=== PATIENT | female | born 1965 | race Caucasian/White ===

== ENCOUNTER 2024-03-08 15:03 | Outpatient (OUT) | payer OTHER, SELFPAY | END 2024-03-08 15:04 | disposition home or self-care (01) | LOC: CARD 15:07 | PROVIDERS: PCP Internal Medicine; Visit Provider Physician Assistant | DX: R00.2 Palpitations (principal); I10 Essential (primary) hypertension | CPT/HCPCS: 93242 ==

== ENCOUNTER 2024-06-09 07:57 | Outpatient (OUT) | payer OTHER, SELFPAY ==
--- NOTE | 2024-06-09 08:00 | CA_ITS ---
Patient Name: JULIANA OVERTON MR#: [id number] : 1965 Exam Date: 06/09/2024 Ordering Doctor: ZHANNA JUNG M.D. ECHOCARDIOGRAM REPORT PROCEDURE: CA ECHO DOPPLER COMPLETE INDICATIONS: Lower extremity edema, hypertension COMPARISON: None. DESCRIPTION: COMPLETE ECHOCARDIOGRAM Real-time transthoracic echocardiography with 2D, M-mode, spectral and color flow Doppler performed. QUALITY: Technical quality was good. LEFT VENTRICLE: Normal chamber size. Borderline left ventricular hypertrophy. Global left ventricular systolic function is normal. LV EF: Visual estimation of left ventricular ejection fraction is 65%. DIASTOLIC: Normal diastolic function. ATRIAL SEPTUM: LEFT ATRIUM: Mild dilatation. RIGHT ATRIUM: Normal chamber size. RIGHT VENTRICLE: Normal chamber size. Normal right ventricular systolic function. TRICUSPID VALVE: Normal mobility and thickness. No stenosis with trivial regurgitation. No evidence of pulmonary hypertension. RVSP 16 mmHg MITRAL VALVE: Normal mobility and thickness. No evidence of mitral valve stenosis. There is no mitral annular calcification. No mitral regurgitation. AORTIC VALVE: Normal trileaflet appearance. No visible sclerosis. Normal leaflet mobility. No evidence of aortic valve stenosis. No aortic regurgitation. AORTIC ROOT: Normal diameter and appearance. PULMONIC VALVE: Normal thickness and mobility. No stenosis. Trivial regurgitation. PERICARDIUM: No evidence of pericardial effusion. IVC: Collapses with inspirations. Normal size. PLEURA: CONCLUSION: 1. Borderline left ventricular hypertrophy with normal systolic function. Estimated LVEF is 65%. 2. Normal right ventricular size and systolic function. 3. Mild left atrial dilatation. 4. Normal diastolic function. 5. No significant valvular dysfunction. 6. Normal right-sided pressures. 7. No pericardial effusion. Adult Echocardiography Procedure Report Left Ventricle LVEDD (3.7 - 5.6 cm): 5.51 cm LVESD (2.2 - 4.0 cm): 3.73 cm LVIVS thickness (0.6 - 1.2 cm): 1.10 cm LVPW thickness (0.5 - 1.0 cm): 0.77 cm e': 0.12 m/s E - e': 6.54 LVOT Max Gradient: 2.70 mm[Hg] LVOT Area (cm2): 0.82 m/s Peak Velocity (LVOT): 0.82 m/s Mean Velocity (LVOT): 0.49 m/s LVOT Diameter 2.11 cm Left Ventricular Ejection Fraction: 65 % Left Atrium LA Volume Index (2D A2C): 40.64 ml/m2 Left Atrium Systolic Dimension: 4.35 cm Mitral Valve MV E to A Ratio: 1.23 Mitral Valve A-Wave Peak Velocity: 0.63 m/s Mitral Valve E-Wave Peak Velocity: 0.78 m/s Right Ventricle RV Internal Diastolic Dimension: 3.32 cm Aorta AO Root Diam: 3.11 cm Ascending Ao Diam: 3.45 cm Aortic Valve AoV Area (Peak Raymundo): 2.55 cm2, 2.55 cm2 AoV Area (VTI): 2.46 cm2, 2.46 cm2 Peak Velocity(Antegrade Flow): 1.12 m/s Peak Gradient(Antegrade Flow): 5.05 mm[Hg] Mean Velocity(Antegrade Flow): 0.75 m/s Mean Gradient(Antegrade Flow): 2.62 mm[Hg] Velocity Time Integral: 28.26 cm Tricuspid Valve Peak Velocity (Regurgitant Flow): 1.51 m/s, 1.77 m/s Pulmonic Valve Mean Gradient: 2.16 mm[Hg], 2.45 mm[Hg] Mean Velocity: 0.69 m/s, 0.73 m/s Peak Velocity: 1.03 m/s Peak Gradient: 3.98 mm[Hg], 4.51 mm[Hg] Right Atrium Right Atrium Systolic Pressure: 43.66 ml, 43.66 ml Dictated by: Buddy Burch M.D. on 06/09/2024 at 13:18 Approved by: Buddy Burch M.D. on 06/09/2024 at 13:21
--- OUTSIDE RECORDS SUMMARY | 2024-06-09 08:02 | XMS_ITS | CCD ---
Author Organization [facility] Care Team Providers Care Cutter Operator Tile Name Role Phone DR BANG AVILES Attending Unavailable STEFAN, DR PARIS Consulting DR BANG Traore Primary Care Unavailable DR BANG AVILES Admitting ODILON Traore Primary Care Provider MD Fransico Campos Attending Provider MD Taco Anne Attending Provider Taco Anne Admitting Unavailable Taco Anne Attending Bang Traore Primary Care Unavailable Bang Aviles Primary Care Unavailable Fransico Campos Admitting Fransico Rutherford Attending Bang Isaac MD Primary Care Provider [phone] ALBA DONOVAN Attending Unavailable ALBA DONOVAN Attending Unavailable WALDO ALEXANDER Attending Unavailable ALBA DONOVAN Attending Unavailable ALBA DONOVAN Attending Unavailable SHERRIE CAZARES Attending Unavailable Stefan DONALD MD, Daniel B Primary Care Provider SELF Referring Unavailable NAINA THORNTON Attending BANG Traore II Primary Care Unavailable ZHANNA JUNG Attending Unavailable RAE SIMON Attending Unavailable Allergies Allergy Classification Reported Allergen(s) Allergy Type Date of Onset Reaction(s) Facility (12 sources) Citalopram Drug Allergy 4 Other, Other: See Comments [facility] Work Phone: Medications Current Medications Medication Drug Class(es) Dates Sig (Normalized) Sig (Original) acetaminophen 325 mg / HYDROcodone bitartrate 5 mg oral tablet (1 source) Opioid Agonist Start: 03-04-2016 take 1-2 tablets by mouth every four hours as needed HYDROcodone-aceta minophen (NORCO) 5-325 mg per tablet Take 1-2 tablets by mouth every 4 hours as needed. 20 tablet 0 03/04/2016 Active ALPRAZolam 2 mg oral tablet (8 sources) Benzodiazepine Start: 02-17-2024 take 1 tablet by mouth once ALPRAZolam (Xanax) 2 MG tablet Indications: Anxiety about health Take 1 tablet (2 mg) by mouth 1 time for 1 dose Take prior to MRI 1 tablet 02/17/2024 Active amoxicillin 500 mg oral capsule (2 sources) Penicillin-class Antibacterial Start: 04-21-2024 End: 05-01-2024 take 1 capsule by mouth in the morning, then take 1 capsule by mouth in the evening, then take 1 capsule by mouth at bedtime amoxicillin (Amoxil) 500 MG capsule Indications: Fever and chills , Acute non-recurrent frontal sinusitis Take 1 capsule (500 mg) by mouth in the morning and 1 capsule (500 mg) in the evening and 1 capsule (500 mg) before bedtime. Do all this for 10 days. 30 capsule 04/21/2024 05/01/2024 Active apixaban 2.5 mg oral tablet (1 source) Factor Xa Inhibitor take 1 tablet by mouth twice daily apixaban (ELIQUIS) 2.5 mg tab(s) Take 2.5 mg by mouth two times a day. Active atenolol 25 mg oral tablet (4 sources) beta-Adrenergic Dee Dee Start: 03-22-2024 take 1 tablet by mouth once daily atenolol (Tenormin) 25 MG tablet Indications: Paroxysmal atrial fibrillation (CMS/HCC) Take 1 tablet (25 mg) by mouth Daily 30 tablet 2 03/22/2024 Active Berberine (11 sources) BERBERINE Active Berberine Chloride (2 sources) Start: 09-17-2023 take 500 mg by mouth twice daily Berberine Chloride Active 500 MG PO Twice daily September 17, 2023 12:00am 12 hr buPROPion hydrochloride 100 mg extended release oral tablet (8 sources) Aminoketone Start: 04-19-2024 take 1 tablet by mouth once daily buPROPion SR (Wellbutrin SR) 100 MG 12 hr tablet Indications: Anxiety about health TAKE 1 TABLET (100 MG) BY MOUTH DAILY DO NOT CRUSH, CHEW, OR SPLIT. 30 tablet 1 04/19/2024 Active Start: 02-16-2024 take 1 tablet by once daily buPROPion SR (Wellbutrin SR) 100 MG 12 hr tablet Indications: Anxiety about health Take 1 tablet (100 mg) by mouth Daily Do not crush, chew, or split. 30 tablet 1 02/16/2024 Active dextromethorphan hydrobromide 15 mg / guaiFENesin 400 mg / pseudoephedrine hydrochloride 60 mg oral tablet (4 sources) alpha-Adrenergic Agonist, Uncompetitive Q-gvikna-Q-aspartate Receptor Antagonist, Sigma-1 Agonist Start: 03-18-2024 End: 03-22-2024 take 1 tablet by mouth every six hours as needed for cough CAPMIST DM 60-15-400 mg tab take 1 tablet by mouth every 6 hours as needed for cough 03/20/2024 Active docusate sodium 100 mg oral capsule (1 source) Start: 03-04-2016 docusate sodium (COLACE) 100 mg capsule Take one capsule twice daily while taking pain medications to prevent constipation. Hold if loose stool 03/04/2016 Active docusate sodium 50 mg / sennosides, detention 8.6 mg oral tablet (11 sources) take 1 tablet by mouth once daily as needed senna-docusate sodium (Senokot-S) 8.6-50 MG tablet Take 1 tablet by mouth Daily PRN Active fluconazole 150 mg oral tablet (2 sources) Azole Antifungal Start: 04-21-2024 End: 04-23-2024 fluconazole (Diflucan) 150 MG tablet Indications: Vaginal yeast infection Take 1 tablet (150 mg) by mouth Daily for 2 days 1 tablet following the atb dosage x 1 day, then repeat x 1 tablet in 3 days. 2 tablet 04/21/2024 04/23/2024 Active fluocinolone acetonide 0.1 mg/ml topical oil (5 sources) Corticosteroid Start: 02-23-2024 fluocinolone ([place]) 0.01 % external oil APPLY TO AFFECTED AREAS ON TRUNK AND AND EXTREMITIES ONCE DAILY. 02/23/2024 Active hydroCHLOROthiazide 12.5 mg oral capsule (1 source) Thiazide Diuretic take 1 capsule by mouth once daily hydroCHLOROthiazide 12.5 mg capsule Take 12.5 mg by mouth once daily. Active hydroCHLOROthiazide 25 mg / triamterene 37.5 mg oral tablet (16 sources) Potassium-sparing Diuretic, Thiazide Diuretic Start: 04-20-2024 take 1 tablet by mouth once daily in the morning triamterene-hydrochlo rothiazide (Maxzide-25) 37.5-25 MG tablet Indications: Benign essential hypertension (CMS/HCC) TAKE 1 TABLET BY MOUTH EVERY DAY IN THE MORNING 100 tablet 3 04/20/2024 Active Start: 02-24-2024 take 1 tablet by preeti th once daily in the morning triamterene-hydrochlorothiazide (Maxzide -25) 37.5-25 MG tablet Indications: Benign essential hypertension (CMS/HCC) TAKE 1 TABLET BY MOUTH EVERY DAY IN THE MORNING 30 tablet 02/24/2024 Active Start: 12-25-2023 End: 02-16-2024 take 1 tablet by mouth once daily in the morning triamterene-hydrochlorothiazide (Maxzide -25) 37.5-25 MG tablet Indications: Hypertension, unspecified type (CMS/HCC) TAKE 1 TABLET BY MOUTH EVERY DAY IN THE MORNING 30 tablet 01/28/2024 02/16/2024 Discontinued Start: 11-27-2023 take 1 tablet by preeti th once daily in the morning triamterene-hydrochlorothiazide (Maxzide -25) 37.5-25 MG tablet Indications: Hypertension, unspecified type (CMS/HCC) TAKE 1 TABLET BY MOUTH EVERY DAY IN THE MORNING 30 tablet 11/27/2023 Active Start: 09-16-2023 take 1 tablet by preeti th once daily in the morning Triamterene-Hydrochlorothiazid Active 1 TAB PO Every morning September 16, 2023 12:00am levothyroxine sodium 0.175 mg oral tablet (15 sources) l-Thyroxine Start: 05-20-2024 take 1 tablet by mouth once daily levothyroxine (SYNTHROID) 175 mcg tablet Take 1 tablet by mouth once daily. 90 tablet 1 05/20/2024 Active Start: 2023 End: 05-20-2024 levothyroxine (SYNTHROID) 15 0 mcg tablet Take 150 mcg by mouth. 2023 05/20/2024 Discontinued Start: 09-16-2023 take 150 ug by mouth once daily Levothyroxine Active 150 MCG PO Daily September 16, 2023 12:00am losartan potassium 100 mg oral tablet (14 sources) Angiotensin 2 Receptor Dee Dee Start: 04-26-2024 losartan (COZAAR) 10 0 mg tablet Take 100 mg by mouth. 04/26/2024 Active Start: 04-30-2023 take 1 tablet by preeti th once daily losartan (Cozaar) 100 MG tablet Indications: Essential (primary) hypertension (CMS/HCC) TAKE 1 TABLET BY MOUTH ONCE DAILY 90 tablet 3 04/30/2023 Active rivaroxaban 20 mg oral tablet (3 sources) Factor Xa Inhibitor Start: 03-22-2024 take 1 tablet by mouth at mealtime rivaroxaban (Xarelto) 20 MG tablet Indications: Paroxysmal atrial fibrillation (CMS/HCC) Take 1 tablet (20 mg) by mouth in the evening. Take with meals Take with food. 30 tablet 2 03/22/2024 Active Sennosides (Senna) 8.6 mg tablet (2 sources) Start: 09-17-2023 take 1 tablet by mouth twice daily Sennosides (Senna) 8.6 mg tablet Active 8.6 MG PO Twice daily September 17, 2023 12:00am VITAMIN D PO (11 sources) take 1 tablet by mouth once daily VITAMIN D PO Take 1 tablet by mouth Daily Active Vitamin D3-Vitamin K2 (2 sources) Start: 09-17-2023 take 1 capsule by mouth once daily Vitamin D3-Vitamin K2 Active 1 CAP PO Daily September 17, 2023 12:00am Vtama 1 % cream (5 sources) Start: 02-25-2024 Vtama 1 % crea m 02/25/2024 Active VTAMA 1 % cream (1 source) Start: 02-25-2024 VTAMA 1 % crea 02/25/2024 Active Completed/Discontinued Medications Medication Drug Class(es) Dates Sig (Normalized) Sig (Original) citalopram 20 mg oral tablet (1 source) Serotonin Reuptake Inhibitor Start: 10-21-2023 End: 12-10-2023 take 1 tablet by mouth once daily citalopram (CeleXA) 20 MG tablet Indications: Anxiety about health Take 0.5-1 tablets (10-20 mg) by mouth Daily 10 mg daily for 2 weeks, then 20 mg daily. 30 tablet 1 10/21/2023 12/10/2023 Discontinued (Side effects) hydroCHLOROthiazide 12.5 mg / losartan potassium 50 mg oral tablet (1 source) Thiazide Diuretic, Angiotensin 2 Receptor Dee Dee End: 05-20-2024 take 1 tablet by mouth once daily losartan-hydrochl orothiazide 50-12.5 mg per tablet Take 1 tablet by mouth once daily. 05/20/2024 Discontinued NATURE THYROID ORAL (2 sources) End: 05-20-2024 take 113 ug by mouth once daily at bedtime NATURE THYROID ORAL Take 113 mcg by mouth daily at bedtime. 05/20/2024 Discontinued End: 05-20-2024 take 0.97 mg by mouth once daily NATURE THYROID ORAL Take 0.97 mg by mouth once daily. 05/20/2024 Discontinued PARoxetine hydrochloride 20 mg oral tablet (2 sources) Serotonin Reuptake Inhibitor Start: 12-10-2023 End: 01-27-2024 take 1 tablet by mouth once daily in the morning PARoxetine (Paxil) 20 MG tablet Indications: Anxiety about health Take 0.5-1 tablets (10-20 mg) by mouth in the morning. 10 mg daily x 1 week, then 20 mg daily.. 30 tablet 2 12/10/2023 01/27/2024 Discontinued (Other) Problems Active Problems Problem Classification Problem Date Documented Da te Episodic/Chronic Acute bronchitis (2 sources) Acute bronchitis; Translations: [Acute bronchitis, unspecified] 03-18-2024 Episodic Cardiac dysrhythmias (8 sources) Paroxysmal atrial fibrillation; Translations: [Paroxysmal atrial fibrillation] Onset: 03-22-2024 03-22-2024 Chronic Cardiac dysrhythmias (4 sources) Palpitations; Translations: [Palpitations] 02-16-2024 Episodic Deficiency and other anemia (11 sources) Anemia of chronic disease; Translations: [Anemia in other chronic diseases classified elsewhere] Onset: 10-06-2023 10-06-2023 Chronic Essential hypertension (20 sources) Benign essential hypertension; Translations: [Essential (primary) hypertension] Onset: 10-06-2023 Resolved: 10-06-2023 10-06-2023 Chronic Fever of unknown origin (2 sources) Fever with chills; Translations: [Fever, unspecified] 04-21-2024 Episodic Genitourinary symptoms and ill-defined conditions (11 sources) Female stress incontinence; Translations: [Stress incontinence (female) (male)] Onset: 10-06-2023 10-06-2023 Chronic Hypertension with complications and secondary hypertension (2 sources) Hypertensive heart disease without heart failure; Translations: [Hypertensive heart disease without heart failure] Onset: 05-17-2024 Chronic Malaise and fatigue (11 sources) Fatigue; Translations: [Chronic fatigue, unspecified] Onset: 10-06-2023 10-06-2023 Chronic Malaise and fatigue (1 source) Fatigue; Translations: [Other fatigue] 05-20-2024 Episodic Melanomas of skin (20 sources) Melanoma in situ, unspecified; Translations: [Melanoma in situ] Onset: 02-15-2016 09-17-2023 Chronic Menopausal disorders (15 sources) Menopausal and female climacteric states; Translations: [Menopausal flushing] Onset: 02-08-2022 Chronic Menstrual disorders (11 sources) Irregular periods; Translations: [Irregular menstruation, unspecified] Onset: 10-06-2023 10-06-2023 Chronic Mycoses (2 sources) Candidiasis of vagina; Translations: [Vaginal yeast infection] 04-21-2024 Episodic Nonmalignant breast conditions (2 sources) Fibrocystic changes of bilateral breasts; Translations: [Diffuse cystic mastopathy of right breast] 01-27-2024 Chronic Nonmalignant breast conditions (1 source) Breast finding ; Translations: [Dense breasts] 01-27-2024 Episodic Osteoarthritis (11 sources) Osteoarthritis; Translations: [Unspecified osteoarthritis, unspecified site] Onset: 10-06-2023 10-06-2023 Chronic Other inflammatory condition of skin (11 sources) Guttate psoriasis; 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] Onset: 10-06-2023 10-06-2023 Chronic Other nutritional; endocrine; and metabolic disorders (11 sources) Insulin resistance; Translations: [Insulin resistance] Onset: 10-06-2023 10-06-2023 Chronic Other nutritional; endocrine; and metabolic disorders (14 sources) Morbid obesity; Translations: [Morbid (severe) obesity due to excess calories] Onset: 10-06-2023 10-06-2023 Chronic Other nutritional; endocrine; and metabolic disorders (1 source) Abnormal weight gain; Translations: [Abnormal weight gain] 05-20-2024 Episodic Other screening for suspected conditions (not mental disorders or infectious disease) (3 sources) Patient encounter status; Translations: [Encounter for screening mammogram for malignant neoplasm of breast] 01-27-2024 Episodic Other upper respiratory infections (9 sources) Acute frontal sinusitis; Translations: [Acute frontal sinusitis, unspecified] Onset: 03-18-2024 Resolved: 03-18-2024 03-18-2024 Episodic Residual codes; unclassified (14 sources) Obstructive sleep apnea syndrome; Translations: [Obstructive sleep apnea (adult) (pediatric)] Onset: 10-06-2023 10-06-2023 Chronic Residual codes; unclassified (2 sources) Family history of breast cancer; Translations: [Family history of malignant neoplasm of breast] 01-27-2024 Episodic Residual codes; unclassified (11 sources) Edema, generalized; Translations: [Generalized edema] Onset: 02-16-2024 02-16-2024 Episodic Residual codes; unclassified (2 sources) Localized edema; Translations: [Localized edema] Onset: 05-17-2024 Episodic Systemic lupus erythematosus and connective tissue disorders (11 sources) Connective tissue disease overlap syndrome; Translations: [Other overlap syndromes] Onset: 10-06-2023 10-06-2023 Chronic Thyroid disorders (16 sources) Hypothyroidism, unspecified; Translations: [Acquired hypothyroidism] Onset: 02-10-2022 10-06-2023 Chronic Past or Other Problems Problem Classification Problem Date Documented Da te Episodic/Chronic Hemorrhoids (11 sources) Internal hemorrhoids; Translations: [Other hemorrhoids] Onset: 10-06-2023 10-06-2023 Episodic Miscellaneous mental health disorders (14 sources) Anxiety about body function or health; Translations: [Other symptoms and signs involving emotional state] Onset: 10-21-2023 10-21-2023 Episodic Other and unspecified benign neoplasm (12 sources) Dysplastic nevus of skin; Translations: [Melanocytic nevi of unspecified lower limb, including hip] Onset: 03-25-2016 10-06-2023 Episodic Other diseases of bladder and urethra (12 sources) Disorder of urethra; Translations: [Other specified disorders of urethra] Onset: 06-20-2006 10-06-2023 Episodic Thyroid disorders (12 sources) Sick-euthyroid syndrome; Translations: [Sick-euthyroid syndrome] Onset: 10-06-2023 10-06-2023 Episodic Unclassified (1 source) Breast finding 01-27-2024 Results Test Name Value Interpretation Reference Range Sylvia STAFFORDon 05-20-2024 CNOV Office Visit (ENDMED) ---- JULIANA NEVILLE ([id number]) 1965 F TRN Date Time Provider Department 05/20/24 9:00 AM NAINA THORNTON During your visit today, we recorded the following information about you: Blood pressure Weight Height 123/80 133.3 kg 1.626 m Naina Thornton MD 05/20/2024 10:01 AM Signed SELF REFERRAL Subjective: Juliana Neville is a 58 year old female here to establish care for hypothyroidism. History in brief, she was diagnosed with hypothyroidism ~ 37 years of age. Previously, her PCP managed hypothyroidism Current treatment: Levothyroxine 150 mcg daily She takes levothyroxine along with Eliquis and BP medications In addition, she also drinks electrolyte (iron, calcium and Magnesium) water within an hour of taking levothyroxine Previously, she was on [facility] thyroid Reports that she has a lot of symptoms crisis for the past 1 year due to thyroid. She is concerned about kidney and heart, whether this could be related to thyroid General symptoms: Fatigue: yes She has JAIDEN, uses APAP 6 nights weekly Weight change: weight gain Appetite change: increased Change in bowel habits: No Temperature intolerance: sporadic heat and cold intolerance States that heat intolerance Dry skin: yes She has eczema She also reports muscle weakness in her arms Patient was recently dx with [facility] cardiology She was started on a 2nd diuretic per cardiology Her dad has hypothyroidism Maternal aunts also have hypothyroidism She is also concerned about Cr level of 1 and decreased UOP REVIEW OF SYSTEMS: Answers submitted by the patient for this visit: Endocrine Review of Systems (Submitted on 05/19/2024) Fatigue: Yes Night sweats: No Recent unintentional weight change: Yes Skin Color Changes: No Post-Nasal Drip: Yes Thyroid Pain (lower neck): No Trouble Swallowing: No Vision Disturbance: Yes Chest pain: No Leg Swelling: Yes Blood Clots?: No Leg Pain while walking?: No Difficulty Breathing?: No Heartburn: No Nausea: No Vomiting: No Diarrhea: No Constipation: Yes Abdominal pain: Yes Bone Pain?: No Muscle aches: Yes Muscle weakness: Yes Joint pain or stiffness: No Headaches: No Dizziness: Yes Numbness?: No Urgency to Urinate?: No Increased Urination: No Slow or Small Urine Stream?: No Are your menstrual cycles regular?: No Are your menstrual cycles irregular?: No Have your menstrual cycles stopped?: Yes Flushing: Yes Hot Flashes?: Yes Increased Thirst: No Change in Body Hair?: Yes Cold Intolerance: Yes Heat Intolerance: Yes ALLERGIES: ALLERGIES Allergen Reactions Citalopram Other: See Comments Roaring in Ears MEDICATIONS: Current Outpatient Medications on File Prior to Visit Medication Sig CAPMIST DM 60-15-400 mg tab take 1 tablet by mouth every 6 hours as needed for cough levothyroxine (SYNTHROID) 150 mcg tablet Take 150 mcg by mouth. losartan (COZAAR) 100 mg tablet Take 100 mg by mouth. VTAMA 1 % cream HYDROcodone-acetami nophen (NORCO) 5-325 mg per tablet Take 1-2 tablets by mouth every 4 hours as needed. docusate sodium (COLACE) 100 mg capsule Take one capsule twice daily while taking pain medications to prevent constipation. Hold if loose stool No current facility-administer ed medications on file prior to visit. PAST MEDICAL HISTORY: PAST MEDICAL HISTORY Diagnosis Date HTN (hypertension) Hypothyroidism Leg pain Morbidly obese (HCC) Psoriasis PAST SURGICAL HISTORY: PAST SURGICAL HISTORY Procedure Laterality Date PAST SURGICAL HISTORY OF 1987 C Section PAST SURGICAL HISTORY OF ? mass near urinary tract. - PERIURETHRAL MASS, EXCISION - WELL-DIFFERENTIATED SMOOTH MUSCLE NEOPLASM OF FAMILY HISTORY: FAMILY HISTORY Problem Relation Age of Onset Heart Father Colon Cancer Father Emphysema Mother Hypertension Mother Lipids Mother Diabetes Brother Hypertension Brother SOCIAL HISTORY: Social History Tobacco Use Smoking status: Former Types: Cigarettes Smokeless tobacco: Never Tobacco comments: quit in 2002 Substance Use Topics Alcohol use: No Drug use: No PHYSICAL EXAM: BP 123/80 Ht 162.6 cm (5' 4 ) Wt 133.3 kg (293 lb 14 oz) LMP 02/20/2016 BMI 50.44 kg/m? Last 3 Encounter Wt Readings: Date: Wt: 05/20/2024 133.3 kg (293 lb 14 oz) 03/14/2016 121.8 kg (268 lb 8 oz) 02/15/2016 120.2 kg (264 lb 15.9 oz) General: Alert and oriented x3, no acute distress Eyes: Anicteric sclera. Pupils are equally round. Extraocular movements are intact. Neck supple, no cervical lymphadenopathy Thyroid: small, no palpable nodules Lungs: Breathing unlabored, clear to auscultation. No wheezing Heart regular rate and rhythm, no murmer Musculoskeletal: Muscular strength intact, No joint swelling Neuro: Gait normal. Sensation grossly intact. No focal findings Extremities: no (more content not included)... Normal [facility] BASIC METABOLIC PANELon BUN/CREATININE RATIO SEE NOTE: Normal - [facility] Comment on above: Order Comment: FASTI NG:NO FASTING: NO Result Comment: Not Reported: BUN and Creatinine are within reference range. Performed By: #### [id number] #### [facility]/[address] [place], [place] Security Coordinator: Rodolfo Vasquez M.D.,PhD #### [id number] [id number], [phone], [phone], [phone] #### [facility] [address], [address] [place] [address] Security Coordinator: Neto Patel MD Calcium [Mass/Vol] 9.4 mg/dL Normal 8.6-10.4 [facility] Comment on above: Order Comment: FASTI NG:NO FASTING: NO Performed By: #### 9 [id number] #### [facility]/[place] [id number] [facility] [place], [place] Security Coordinator: Rodolfo Vasquez M.D.,PhD #### [id number] 5081, [phone], 866, 859 #### [facility] [address], [address] [place], [place] [id number] Security Coordinator: Neto Patel MD Chloride [Moles/Vol] 100 mmol/L Normal 98-110 [facility] Comment on above: Order Comment: FASTI NG:NO FASTING: NO Performed By: #### 9 [id number] #### [facility]/[address] [place], [place] Security Coordinator: Rodolfo Vasquez M.D.,PhD #### [id number], 5081, 867, 866, 859 #### [facility] [address], [address] [place] [address] Security Coordinator: Neto Patel MD CO2 [Moles/Vol] 28 mmol/L Normal 20-32 [facility] Comment on above: Order Comment: FASTI NG:NO FASTING: NO Performed By: #### 9 [id number] #### [facility]/[address] [place], [place] Security Coordinator: Rodolfo Vasquez M.D.,PhD #### [id number], [id number], 5081, 867, 866, 859 #### [facility] [address], [address] [place] [address] Security Coordinator: Neto Patel MD Creatinine [Mass/Vol] 1.01 mg/dL Normal 0.50-1.03 [facility] Comment on above: Order Comment: FASTI NG:NO FASTING: NO Performed By: #### 9 [id number] #### [facility]/[address] [place], [place] Security Coordinator: Rodolfo Vasquez M.D.,PhD #### [id number], 5081, 867, 866, 859 #### [facility] [address], [address] [place] [address] Security Coordinator: Neto Patel MD GFR/1.73 sq M.predicted among non-blacks MDRD (S/P/Bld) [Vol rate/Area] 65 mL/min/{1.73_m2} Normal > OR = 60 [facility] Comment on above: Order Comment: FASTI NG:NO FASTING: NO Performed By: #### 9 [id number] #### [facility]/[address] [place] Security Coordinator: Rodolfo Vasquez M.D.,PhD #### [id number], [id number], 5081, 867, 866, 859 #### [facility] [address], [address] [place] [address] Security Coordinator: Neto Patel MD Glucose [Mass/Vol] 82 mg/dL Normal 65-139 [facility] Comment on above: Order Comment: FASTI NG:NO FASTING: NO Result Comment: Non-fasting reference interval Performed By: #### 9 [id number] #### [facility]/[address] [place] Security Coordinator: Rodolfo Vaqsuez M.D.,PhD #### [id number], [id number], 5081, 867, 866, 859 #### [facility] [address], [address] [place] [address] Security Coordinator: Neto Patel MD Potassium [Moles/Vol] 3.9 mmol/L Normal 3.5-5.3 [facility] Comment on above: Order Comment: FASTI NG:NO FASTING: NO Performed By: #### 9 [id number] #### [facility]/[address] [place] Security Coordinator: Rodolfo Vasquez M.D.,PhD #### [id number], [id number], 5081, 867, 866, 859 #### [facility] [address], [address] [place] [address] Security Coordinator: Neto Patel MD Sodium [Moles/Vol] 139 mmol/L Normal 135-146 [facility] Comment on above: Order Comment: FASTI NG:NO FASTING: NO Performed By: #### 9 0963 #### [facility]/[address] [place] Security Coordinator: Rodolfo Vasquez M.D.,PhD #### [id number], [id number] 5081, 867, 866, 859 #### [facility] [address] Security Coordinator: Neto Patel MD Urea nitrogen [Mass/Vol] 13 mg/dL Normal 7-25 [facility] Comment on above: Order Comment: FASTI NG:NO FASTING: NO Performed By: #### 9 [id number] #### [facility]/[address] [place], [place] Security Coordinator: Rodolfo Vasquez M.D.,PhD #### [id number], [id number], 5081, [phone], [phone], [phone] #### [place] [address] Security Coordinator: Neto Patel MD T3 REVERSE, LC/MS/MSon 05-17 T3 REVERSE, LC/MS/MS 19 ng/dL Normal 8-25 [facility] Comment on above: Result Comment: This test was developed and its analytical performance characteristics have been determined by [employer] [place], [place]. It has not been cleared or approved by the U.S. Food and Drug Administration. This assay has been validated pursuant to the CLIA regulations and is used for clinical purposes. Performed By: #### 9 0963 #### [facility]/[address] [place], [place] Security Coordinator: Rodolfo Vasquez M.D.,PhD #### [id number], [phone], 5081, [phone], [phone], [phone] #### [facility] [address], [address] [place] [address] Security Coordinator: Neto Patel MD T3, FREEon 05-17-2024 Free T3 [Mass/Vol] 2.8 pg/mL Normal 2.3-4.2 [facility] Comment on above: Performed By: #### 9 0963 #### [facility]/[address] [place], [place] Security Coordinator: Rodolfo Vasquez M.D.,PhD #### [id number], [id number], 5081, [phone], [phone], [phone] #### [facility] [place] [address] Security Coordinator: Neto Patel MD T3, TOTALon 05-17-2024 T3, TOTAL 97 ng/dL Normal 76-181 [facility] Comment on above: Performed By: #### 9 0963 #### [facility]/[address] [place], [place] Security Coordinator: Rodolfo Vasquez M.D.,PhD #### [id number], [id number], 5081, [phone], [phone], [phone] #### [facility] [place] [address] Security Coordinator: Neto Patel MD T4 (THYROXINE), TOTALon T4 [Mass/Vol] 9.9 ug/dL Normal 5.1-11.9 [facility] Comment on above: Performed By: #### 9 0963 #### [facility]/[address] [place], [place] Security Coordinator: Rodolfo Vasquez M.D.,PhD #### [id number], [id number], 5081, 867, [phone], [phone] #### [facility] [place] [address] Security Coordinator: Neto Patel MD T4, FREEon 05-17-2024 Free T4 [Mass/Vol] 1.3 ng/dL Normal 0.8-1.8 [facility] Comment on above: Performed By: #### 9 0963 #### [facility]/[address] [place], [place] Security Coordinator: Rodolfo Vasquez M.D.,PhD #### [id number], 29857, 5081, 867, 866, 859 #### [facility] of [facility] [address], [address] [place] [address] Security Coordinator: Neto Patel MD THYROID PEROXIDASE ANTIBODIE Son 05-17-2024 THYROID PEROXIDASE ANTIBODIES 3 IU/mL Normal <9 [facility] Comment on above: Performed By: #### 9 0963 #### [facility]/[address] [place], [place] Security Coordinator: Rodolfo Vasquez M.D.,PhD #### [id number], [id number], 5081, 867, 866, 859 #### [facility] of [address], [address] [place] [address] Security Coordinator: Neto Patel MD TSHon 05-17-2024 TSH Qn 15.25 m[IU]/L High 0.40-4.50 [facility] Comment on above: Performed By: #### 9 0963 #### [facility]/[address] [place], [place] Security Coordinator: Rodolfo Vasquez M.D.,PhD #### [id number], 59168, 5081, 867, 866, 859 #### [facility] of [address] , [address] [place] [address] Security Coordinator: Neto Patel MD Letter (Out)on 05-04-2024 Letter (Out) [id number] Juliana Neville 1965 Provider Department Center 05/04/2024 None-None [facility] [place] [facility] Family History Problem Relation Age of Onset No Known Problems Mother Valvular heart disease Father Atrial fibrillation Father Family Status - Relation Status Age at Mother Father Normal [facility] Office Visiton 04-27-2024 Follow-up visit [id number] Juliana Neville 1965 Provider Department Center 04/27/2024 RAE CAIN [facility] Constantine Montelongo Family History Problem Relation Age of Onset No Known Problems Mother Valvular heart disease Father Atrial fibrillation Father Family Status - Relation Status Age at Mother Father Level of Service:96582 ID OFFICE/OUTPATIENT NEW MODERATE MDM 45 MINUTES Normal [facility] No Panel Informationon 04-21 Interpretation and review of laboratory results Normal [facility] Influenza A Ag Negative Negative, Indeterminate [facility] Rapid Influenza B Ag Negative Negative, Indeterminate [facility] Physician Referralon 024 Physician Referral [phone] [id number] 8#1.00TIFF Normal [facility] Payam 09-30-2023 L Specimen: [id number] Received: 09/30/23 Status: VETOJorge A Req Num: [id number] Spec Type: Surgical Subm Dr: Taco Anne MD Tissues: A Skin-Other than Cyst, tag, debridement or plastic repair (RT LOWER EYELID) Procedures: HE/4, Gross/Micro L4, SOX-10 Age/ Patient Sex Location Account Attending Physician Juliana Neville 57/F [place] [id number] Taco Anne MD SPEC NUM: [id number] RECD: 09/30/23 STATUS: JAMSHID HERNANDEZQ NUM: [id number] OSMIN: 09/30/[address]: Taco Anne MD ENTERED: 09/30/23 [facility] DR: SPEC TYPE: Surgical DEPT: S ORDERED: HE/4, Gross/Micro L4, SOX-10 ORDERED: HE/4, Gross/Micro L4, SOX-10 Pathological Diagnosis Skin, right lower eyelid, reexcision: -Postbiopsy cicatrix with marked chronic inflammation without residual malignancy or melanoma in situ -Incidental mild nonspecific reactive proliferation of melanocytes in the epidermis above the scar, and occasional background solar lentigos -SOX10 immunostain with appropriate control is also reviewed on A3 Clinical Information Nonhealing lesion, reexcision: Biopsy. 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 Gross Description Received in formalin labeled with the patient's name, date of and lower eyelid right is an oriented ovoid excision of french skin measuring 1.6 x 1.5 x 0.2 cm in depth. The specimen has been tagged with a suture by the surgeon designating the 12 o'clock position. The surface contains 0.5 x 0.5 cm well-healed, pale-french scar that comes to within 0.3 cm of 12:00, 0.6 cm of 3:00, 0.5 cm of 6:00 and 0.5 cm of 9:00. The specimen is inked as follows: 12-3 is orange, 3-6 is green, 6-9-12 is red and the deep margin is black. The specimen is serially sectioned from 12:00 to 6:00 and sequentially submitted in A1-A4 as follows: A1: 9:00 tip A2: 3:00 tip Specimen: [id number] Received: 09/30/23 Status: JAMSHID Parks Num: [id number] Spec Type: Surgical Subm Dr: Taco Anne MD Tissues: A Skin-Other than Cyst, tag, debridement or plastic repair (RT LOWER EYELID) Procedures: HUMBLE/Ela, Gross/Hansa L4, SOX-10 Patient: Juliana Neville [id number] (Continued) Specimen: [id number] Received: 09/30/23 (Continued) Gross Description (Continued) Signed (signatur e on file) Bebe Blackwell MD 10/05/23 1744 Specimen: [id number] Received: 09/30/23 Status: JAMSHID Parks Num: [id number] Spec Type: Surgical Subm Dr: Taco Anne MD Tissues: A Skin-Other than Cyst, tag, debridement or plastic repair (RT LOWER EYELID) Procedures: /4, Gross/Micro L4, SOX-10 Patient: Juliana Neville [id number] (Continued) Specimen: [id number] Received: 09/30/23 (Continued) Gross Description (Continued) A3:12:00 to 6:00 region CPT Codes [id number] Specimen: [id number] Received: 09/30/23 Status: JAMSHID Hernandezemily Num: [id number] Spec Type: Surgical Subm Dr: Taco Anne MD Tissues: A Skin-Other than Cyst, tag, debridement or plastic repair (RT LOWER EYELID) Procedures: HE/Ela, Gross/Micro L4, SOX-10 Patient: Juliana Neville [id number] (Continued) Signed (signatur e on file) Bebe Blackwell MD 10/05/23 1744 Normal [facility] ESTROGEN 02-14-2022 Estrogens, Total 42 pg/mL Normal 40-244 [facility] Comment on above: Result Comment: Prep ubertal < 40 Female Cycle: 1-10 Days 16 - 328 11-20 Days 34 - 501 21-30 Days 48 - 350 Post-Menopausal 40 - 244 Performed By: #### E STROG #### [facility] [address] [place] [address] Dr. Rica Blackwell FSHon 02-09-2022 FSH 51.6 mIU/mL Normal [facility] Comment on above: Result Comment: Adul t Female: Follicular phase 3.5 - 12.5 Ovulation phase 4.7 - 21.5 Luteal phase 1.7 - 7.7 Postmenopausal 25.8 - 134.8 Performed By: #### L [facility] #### [facility] [address] [place] [address] Dr. Rica Blackwell LUTEINIZING HORMONE (LH)on LH 33.9 mIU/mL Normal [facility] Comment on above: Result Comment: Adul t Female: Follicular phase 2.4 - 12.6 Ovulation phase 14.0 - 95.6 Luteal phase 1.0 - 11.4 Postmenopausal 7.7 - 58.5 Performed By: #### L BCL #### [facility] [address] [place] [address] Dr. Rica Blackwell PROGESTERONEon 02-09-2022 Progesterone <0.1 Normal [facility] Comment on above: Result Comment: Foll icular phase 0.1 - 0.9 Luteal phase 1.8 - 23.9 Ovulation phase 0.1 - 12.0 First trimester 11.0 - 44.3 Second trimester 25.4 - 83.3 Third trimester 58.7 - 214.0 Postmenopausal 0.0 - 0.1 Performed By: #### P ROGES #### [facility] [address] [place] [address] Dr. Rica Blackwell TSHon 02-08-2022 TSH 3.424 uIU/mL Normal 0.358-3.[address] [facility] Comment on above: Performed By: #### T #### [facility] [address] [address] [address] Rica Blackwell Complete Blood Count with Au to Diffon 07-03-2021 Basophils (Bld) [#/Vol] 0.07 10*3/uL Normal 0.00-0.20 [facility] Comment on above: Performed By: #### C BCAD, TSH, FT4, CMP, FT3 #### [facility] [address] [place], [place] [id number] Basophils/100 WBC (Bld) 1.4 % Normal [facility] Comment on above: Performed By: #### C BCAD, TSH, FT4, CMP, FT3 #### [facility] [address] [place], [place] [id number] Eosinophils (Bld) [#/Vol] 0.19 10*3/uL Normal 0.02-0.50 [facility] Comment on above: Performed By: #### C BCAD, TSH, FT4, CMP, FT3 #### [facility] [address] [place], [place] [id number] Eosinophils/100 WBC (Bld) 3.7 % Normal [facility] Special[facility] Comment on above: Performed By: #### C BCAD, TSH, FT4, CMP, FT3 #### [facility] [address] [place], [place] [id number] Erythrocyte distribution width (RBC) [Ratio] 14.3 % Normal 11.0-15.0 [facility] Comment on above: Performed By: #### C BCAD, TSH, FT4, CMP, FT3 #### [facility] [address] [place], [place] [id number] Hematocrit (Bld) [Volume fraction] 44.5 % Normal 35.0-47.0 [facility] Comment on above: Performed By: #### C BCAD, TSH, FT4, CMP, FT3 #### [facility] [address] [place], [place] [id number] Hemoglobin (Bld) [Mass/Vol] 14.2 g/dL Normal 11.6-15.5 [facility] Special[facility] Comment on above: Performed By: #### C BCAD, TSH, FT4, CMP, FT3 #### [facility] [address] [place], [place] [id number] Lymphocytes (Bld) [#/Vol] 1.6 10*3/uL Normal 0.9-3.9 [facility] Comment on above: Performed By: #### C BCAD, TSH, FT4, CMP, FT3 #### [facility] [address] [place], [place] [id number] Lymphocytes/100 WBC (Bld) 31.1 % Normal [facility] Special[facility] Comment on above: Performed By: #### C BCAD, TSH, FT4, CMP, FT3 #### [facility] [address] [place], [place] [id number] MCH (RBC) [Entitic mass] 27.7 pg Normal 27.0-33.0 [facility] Special[facility] Comment on above: Performed By: #### C BCAD, TSH, FT4, CMP, FT3 #### [facility] [address] [place], [place] [id number] MCHC (RBC) [Mass/Vol] 31.9 g/dL Low 32.0-36.0 [facility] Special[facility] Comment on above: Performed By: #### C BCAD, TSH, FT4, CMP, FT3 #### [facility] [address] [place], [place] [id number] MCV (RBC) [Entitic vol] 87 fL Normal 80-100 [facility] Special[facility] Comment on above: Performed By: #### C BCAD, TSH, FT4, CMP, FT3 #### [facility] [address] [place], [place] [id number] Monocytes (Bld) [#/Vol] 0.6 10*3/uL Normal 0.2-0.9 [facility] Comment on above: Performed By: #### C BCAD, TSH, FT4, CMP, FT3 #### [facility] [address] [place], [place] [id number] Monocytes/100 WBC (Bld) 10.8 % Normal [facility] Specialist Comment on above: Performed By: #### C BCAD, TSH, FT4, CMP, FT3 #### [facility] [address] [place], [place] [id number] Neutrophils (Bld) [#/Vol] 2.7 10*3/uL Normal 1.5-7.8 [place] [employer] Comment on above: Performed By: #### C BCAD, TSH, FT4, CMP, FT3 #### [facility] [address] [place], [place] [id number] Neutrophils/100 WBC (Bld) 52.6 % Normal [facility] Specialist Comment on above: Performed By: #### C BCAD, TSH, FT4, CMP, FT3 #### [facility] [address] [place], [place] [id number] Platelet mean volume (Bld) [Entitic vol] 11.60 fL Normal 7.50-12.50 [facility] Special[facility] Comment on above: Performed By: #### C BCAD, TSH, FT4, CMP, FT3 #### [facility] [address] [place], [place] [id number] Platelets (Bld) [#/Vol] 214 10*3/uL Normal 140-400 [facility] Special[facility] Comment on above: Performed By: #### C BCAD, TSH, FT4, CMP, FT3 #### [facility] [address] [place], [place] [id number] RBC (Bld) [#/Vol] 5.13 10*6/uL Normal 3.90-5.20 [facility] [employer] Comment on above: Performed By: #### C BCAD, TSH, FT4, CMP, FT3 #### [facility] [address] [place], [place] [id number] RDW-SD 45.8 fL Normal 37.0-50.0 [facility] [employer] Comment on above: Performed By: #### C BCAD, TSH, FT4, CMP, FT3 #### [facility] [address] [place], [place] [id number] WBC (Bld) [#/Vol] 5.2 10*3/uL Normal 3.8-11.0 [facility] [employer] Comment on above: Performed By: #### C BCAD, TSH, FT4, CMP, FT3 #### [facility] [address] [place], [place] [id number] [facility] 07-03-2021 Albumin [Mass/Vol] 4.9 g/dL Normal 3.6-5.1 [place] [employer] Comment on above: Performed By: #### C BCAD, TSH, FT4, CMP, FT3 #### [facility] [address] [place], [place] [id number] Albumin/Globulin [Mass ratio] 2.0 {ratio} Normal 1.0-2.5 [facility] Specialist Comment on above: Performed By: #### C BCAD, TSH, FT4, CMP, FT3 #### [facility] [address] [place], [place] [id number] ALP [Catalytic activity/Vol] 91 U/L Normal 35-119 [facility] Comment on above: Performed By: #### C BCAD, TSH, FT4, CMP, FT3 #### [facility] [address] [place], [place] [id number] ALT [Catalytic activity/Vol] 29 U/L Normal 6-33 [facility] Comment on above: Result Comment: 03/14 Female reference range changed. Performed By: #### C BCAD, TSH, FT4, CMP, FT3 #### [facility] [address] [place], [place] [id number] Anion gap [Moles/Vol] 21 mmol/L High 12-20 [facility] Special[facility] Comment on above: Result Comment: Effe ctive 04/19/2019 reference range changed. Performed By: #### C BCAD, TSH, FT4, CMP, FT3 #### [facility] [address] [place], [place] [id number] AST [Catalytic activity/Vol] 25 U/L Normal 9-34 [facility] Comment on above: Performed By: #### C BCAD, TSH, FT4, CMP, FT3 #### [facility] [address] [place], [place] [id number] Bilirubin [Mass/Vol] 0.85 mg/dL Normal 0.30-1.20 [facility] Comment on above: Performed By: #### C BCAD, TSH, FT4, CMP, FT3 #### [facility] [address] [place], [place] [id number] BUN/CREA 21 Ratio Normal 6-22 [facility] Special[facility] Comment on above: Performed By: #### C BCAD, TSH, FT4, CMP, FT3 #### [facility] [address] [place], [place] [id number] Calcium [Mass/Vol] 9.8 mg/dL Normal 8.6-10.[address] [facility] Comment on above: Performed By: #### C BCAD, TSH, FT4, CMP, FT3 #### [facility] [address] [place], [place] [id number] Chloride [Moles/Vol] 99 mmol/L Normal 98-107 [facility] Comment on above: Performed By: #### C BCAD, TSH, FT4, CMP, FT3 #### [facility] [address] [place], [place] [id number] CO2 [Moles/Vol] 23 mmol/L Normal 20-31 [facility] Comment on above: Performed By: #### C BCAD, TSH, FT4, CMP, FT3 #### [facility] [address] [place], [place] [id number] Creatinine [Mass/Vol] 0.7 mg/dL Normal 0.6-1.4 [facility] Comment on above: Performed By: #### C BCAD, TSH, FT4, CMP, FT3 #### [facility] [address] [place], [place] [id number] eGFRAA 109 mL/min/1.73m2 Normal >60 [facility] Comment on above: Performed By: #### C BCAD, TSH, FT4, CMP, FT3 #### [facility] [address] [place], [place] [id number] eGFRNAA 90 mL/min/1.73m2 Normal >60 [facility] Comment on above: Performed By: #### C BCAD, TSH, FT4, CMP, FT3 #### [facility] [address] [place], [place] [id number] Globulin (S) [Mass/Vol] 2.5 g/dL Normal 1.9-3.7 [facility] Comment on above: Performed By: #### C BCAD, TSH, FT4, CMP, FT3 #### [facility] [address] [place], [place] [id number] Glucose [Mass/Vol] 83 mg/dL Normal 65-99 [place] [place] [employer] Comment on above: Result Comment: For FASTING Glucose --- ADA reference ranges: Normal 65-99 mg/dl Prediabetes 100-125 Diabetes >/= 126 Performed By: #### C BCAD, TSH, FT4, CMP, FT3 #### [facility] [address] [place], [place] [id number] Potassium [Moles/Vol] 4.0 mmol/L Normal 3.5-5.5 [facility] [employer] Comment on above: Performed By: #### C BCAD, TSH, FT4, CMP, FT3 #### [facility] [address] [place], [place] [id number] Protein [Mass/Vol] 7.4 g/dL Normal 6.1-8.1 [place] [facility] [employer] Comment on above: Performed By: #### C BCAD, TSH, FT4, CMP, FT3 #### [facility] [address] [place], [place] [id number] Sodium [Moles/Vol] 139 mmol/L Normal 135-146 [facility] [place] [employer] Comment on above: Performed By: #### C BCAD, TSH, FT4, CMP, FT3 #### [facility] [address] [place], [place] [id number] Urea nitrogen [Mass/Vol] 14 mg/dL Normal 7-25 [facility] [employer] Comment on above: Performed By: #### C BCAD, TSH, FT4, CMP, FT3 #### [facility] [address] [place], [place] [id number] Free T3on 07-03-2021 FT3 2.83 pg/mL Normal 2.00-4.40 [facility] [employer] Comment on above: Performed By: #### C BCAD, TSH, FT4, CMP, FT3 #### [facility] [address] [place], [place] [id number] Free T4on 07-03-2021 Free T4 [Mass/Vol] 1.79 ng/dL Normal 0.80-1.80 [place] [employer] Comment on above: Performed By: #### C BCAD, TSH, FT4, CMP, FT3 #### [facility] [address] [place] [id number] TSHon 07-03-2021 TSH 1.670 uIU/mL Normal 0.400-4.500 [facility] [employer] Comment on above: Performed By: #### C BCAD, TSH, FT4, CMP, FT3 #### [facility] [address] [place] [id number] Vital Signs Date Time Vital Sign Value Performing Clinician Facility 05-20-2024 09:45-0500 Diastolic blood pressure 80 mm[Hg] Naina Thornton MD Work Phone: [facility] 05-20-2024 09:45-0500 Systolic blood pressure 123 mm[Hg] Naina Thornton MD Work Phone: [facility] 05-20-2024 08:59-0500 Body height 162.6 cm Naina Thornton MD Work Phone: [facility] 05-20-2024 08:59-0500 Body mass index (BMI) [Ratio] 50.44 kg/m2 Naina Thornton MD Work Phone: [facility] 05-20-2024 08:59-0500 Body weight 133.3 kg Naina Thornton MD Work Phone: [facility] 04-21-2024 15:37-0500 Body height 162.6 cm Sherrie Cazaers [employer]ANSIT OPERATIONS SUPERVISOR Work Phone: [facility] 04-21-2024 15:37-0500 Body mass index (BMI) [Ratio] 50.74 kg/m2 Sherrie Cazares [employer]ANSIT OPERATIONS SUPERVISOR Work Phone: [facility] 04-21-2024 15:37-0500 Body weight 134.08 kg Sherrie Cazares TRANSIT OPERATIONS SUPERVISOR Work Phone: [facility] 04-21-2024 15:37-0500 Diastolic blood pressure 84 mm[Hg] Sherrie Cazares TRANSIT OPERATIONS SUPERVISOR Work Phone: [facility] 04-21-2024 15:37-0500 Heart rate 60 /min Sherrie Cazares [employer]ANSIT OPERATIONS SUPERVISOR Work Phone: [facility] 04-21-2024 15:37-0500 Respiratory rate 18 /min Sherrie Cazares [employer]ANSIT OPERATIONS SUPERVISOR Work Phone: [facility] 04-21-2024 15:37-0500 SaO2% (BldA) [Mass fraction] 97 % Sherrie Cazares TRANSIT OPERATIONS SUPERVISOR Work Phone: [facility] 04-21-2024 15:37-0500 Systolic blood pressure 130 mm[Hg] Sherrie Cazares TRANSIT OPERATIONS SUPERVISOR Work Phone: [facility] 03-18-2024 10:36-0500 Body height 162.6 cm Alba Hemmer PA Work Phone: [facility] 03-18-2024 10:36-0500 Body mass index (BMI) [Ratio] 50.26 kg/m2 Alba Hemmer PA Work Phone: [facility] 03-18-2024 10:36-0500 Body temperature 99.19 [degF] Alba Hemmer PA Work Phone: [facility] 03-18-2024 10:36-0500 Body weight 132.81 kg Alba Hemmer PA Work Phone: [facility] 03-18-2024 10:36-0500 Diastolic blood pressure 82 mm[Hg] Alba Hemmer PA Work Phone: [facility] 03-18-2024 10:36-0500 Heart rate 73 /min Alba Hemmer PA Work Phone: [facility] 03-18-2024 10:36-0500 Respiratory rate 16 /min Alba Hemmer PA Work Phone: [facility] 03-18-2024 10:36-0500 SaO2% (BldA) [Mass fraction] 97 % Alba Hemmer PA Work Phone: [facility] 03-18-2024 10:36-0500 Systolic blood pressure 132 mm[Hg] Alba Hemmer PA Work Phone: [facility] 02-16-2024 16:39-0500 Body height 162.6 cm Laba Hemmer PA Work Phone: [facility] 02-16-2024 16:39-0500 Body mass index (BMI) [Ratio] 50.46 kg/m2 Alba Hemmer PA Work Phone: [facility] 02-16-2024 16:39-0500 Body weight 133.36 kg Alba Hemmer PA Work Phone: [facility] 02-16-2024 16:39-0500 Diastolic blood pressure 94 mm[Hg] Alba Hemmer PA Work Phone: [facility] 02-16-2024 16:39-0500 Heart rate 60 /min Alba Hemmer PA Work Phone: [facility] 02-16-2024 16:39-0500 Respiratory rate 16 /min Alba Hemmer PA Work Phone: [facility] 02-16-2024 16:39-0500 SaO2% (BldA) [Mass fraction] 98 % Alba Hemmer PA Work Phone: [facility] 02-16-2024 16:39-0500 Systolic blood pressure 138 mm[Hg] Alba Hemmer PA Work Phone: [facility] 01-27-2024 14:29-0400 Body mass index (BMI) [Ratio] 49.95 kg/m2 Waldo Alexander MD Work Phone: [facility] 01-27-2024 14:29-0400 Body weight 132 kg Waldo Alexander MD Work Phone: [facility] 09-17-2023 09:58-0400 Body height 162.56 cm II Bang Aviles Work Phone: [facility] 09-17-2023 09:58-0400 Body mass index (BMI) [Ratio] 48.4 kg/m2 II Bang Aviles Work Phone: [facility] 09-17-2023 09:58-0400 Body temperature 98 [degF] II Bang Aviles Work Phone: [facility] 09-17-2023 09:58-0400 Body weight 128 kg II Bang Aviles Work Phone: [facility] 09-17-2023 09:58-0400 Diastolic blood pressure 84 mm[Hg] ODILON Aviles Work Phone: [facility] 09-17-2023 09:58-0400 Heart rate 87 /min II Bang Aviles Work Phone: [facility] 09-17-2023 09:58-0400 Respiratory rate 20 /min II Bang Aviles Work Phone: [facility] 09-17-2023 09:58-0400 SaO2% (BldA) [Mass fraction] 98 % II Bang Aviles Work Phone: [facility] 09-17-2023 09:58-0400 Systolic blood pressure 173 mm[Hg] ODILON Aviles Work Phone: [facility] Encounters Encounter Date Encounter Type Care Provider Facility Start: 05-20-2024 End: 05-20-2024 ambulatory SELF Facility:[facility] Start: 05-20-2024 End: 05-20-2024 Patient encounter procedure Naina Thornton MD Work Phone: Endocrinology Comment on above: Hypothyroidism, unsp ecified type (Primary Dx); Elevated TSH; Atrial fibrillation, unspecified type (HCC); Abnormal weight gain; Obstructive sleep apnea; Fatigue, unspecified type Start: 05-17-2024 End: 05-17-2024 ambulatory ZHANNA [facility] Start: 04-27-2024 End: 04-27-2024 ambulatory RAE [facility] Start: 04-21-2024 End: 04-21-2024 Office outpatient visit 25 minutes Sherrie Cazares [employer]PERATIONS SUPERVISOR Work Phone: [facility] Comment on above: Acute non-recurrent frontal sinusitis (Primary Dx); Fever and chills; Vaginal yeast infection Start: 04-21-2024 End: 04-21-2024 ambulatory SHERRIE CAZARES Not Available Start: 03-22-2024 End: 03-22-2024 Telephone encounter Alba VYAS Work Phone: [facility] Start: 03-18-2024 End: 03-18-2024 Bamboo flowsheet Alba Donovan PA Work Phone: [facility] Start: 03-18-2024 End: 03-18-2024 Bamboo flowsheet Alba Donovan PA Work Phone: [facility] Start: 03-18-2024 End: 03-18-2024 Office outpatient visit 15 minutes Alba Donovan PA Work Phone: [facility] Comment on above: Acute non-recurrent frontal sinusitis (Primary Dx); Acute bronchitis, unspecified organism Start: 03-18-2024 End: 03-18-2024 ambulatory ALBA DONOVAN Not Available Start: 02-16-2024 End: 02-16-2024 Office outpatient visit 25 minutes Alba Donovan PA Work Phone: [facility] Comment on above: Benign essential hyp ertension (CMS/HCC) (Primary Dx); Morbid obesity (CMS/HCC); Acquired hypothyroidism (CMS/HCC); Anxiety about health; JAIDEN (obstructive sleep apnea); Generalized edema; Palpitations Start: 02-16-2024 End: 02-16-2024 ambulatory ALBA DONOVAN Not Available Start: 02-16-2024 End: 02-16-2024 Bamboo flowsheet Alba Donovan PA Work Phone: [facility] Start: 02-16-2024 End: 02-16-2024 Bamboo flowsheet Alba Donovan PA Work Phone: [facility] Start: 01-27-2024 End: 01-27-2024 Patient encounter status Waldo Alexander MD Work Phone: [facility] Start: 01-27-2024 End: 01-27-2024 Periodic preventive med est patient 40-64yrs Waldo Alexander MD Work Phone: [facility] Comment on above: Family history of br east cancer (Primary Dx); Encounter for screening mammogram for malignant neoplasm of breast; Screening for malignant neoplasm of cervix; Encounter for gynecological examination without abnormal finding; Dense breasts; Fibrocystic breast changes of both breasts Start: 01-27-2024 End: 01-27-2024 ambulatory WALDO ALEXANDER Not Available Start: 12-10-2023 End: 12-10-2023 Telephone encounter Alba Donovan PA Work Phone: [facility] Start: 10-21-2023 End: 10-21-2023 ambulatory ALBA DONOVAN Not Available Start: 10-07-2023 ambulatory Facility:[facility] Start: 10-06-2023 End: 10-06-2023 ambulatory ALBA DONOVAN Not Available Start: 09-30-2023 End: 09-30-2023 ambulatory II Bang Aviles Work Phone: [facility] Work Phone: Start: 09-30-2023 End: 09-30-2023 Departed Referred II Bang Aviles Work Phone: [facility] [place] Work Phone: Start: 09-17-2023 End: 09-17-2023 Patient encounter procedure II Bang Aviles Work Phone: [facility] Physician [facility] Ambulatory Work Phone: Start: 09-17-2023 Registered Recurring II Bang Aviles Work Phone: [facility] Acute Work Phone: Start: 09-17-2023 End: 09-17-2023 ambulatory II Bang Aviles Work Phone: [facility] Work Phone: Start: 02-08-2022 End: 02-09-[address] BANG AVILES Facility:H1 Procedures Date Procedure Procedure Detail Performing Clinician Start: 04-21-2024 Iaadiadoo influenza Sherrie Cazares NP Work Phone: Start: 10-25-2020 Colonoscopy Alba Hemm er PA Work Phone: Start: 07-20-2020 Mammography Alba Hemm er PA Work Phone: Plan of Treatment Date Care Activity Detail Author Start: 10-25-2030 Screening for malignant neoplasm of colon [facility] Start: 10-11-2024 Influenza vaccination Influenza Vaccine (#1) [facility] Comment on above: Postponed from 12/14/2023 (Patient Refus ed) Start: 09-21-2024 End: 09-21-2024 Follow-up encounter 09/21/2024 6:00 PM EDT [facility] Endocrinology [address] [phone] Naina Thornton MD [address] [phone] 4 month virtual follow up Endocrinology Comment on above: 4 month virtual follow up Start: 05-20-2024 End: 08-19-2024 Thyrotropin [Units/volume] in Serum or Plasma THYROID STIMULATING HORMONE Lab Routine Hypothyroidism, unspecified type Expected: 05/20/2024, Expires: 08/19/2024 [facility] Work Phone: Comment on above: Expected: 05/20/2024, Expires: Start: 03-22-2024 End: 03-22-2024 Patient encounter procedure 03/22/2024 4:15 PM EST Office Visit [facility] [address] [facility] [address] [place] [id number] Bang Aviles MD [address] [facility] [address] [place] [address] [facility] Start: 03-22-2024 End: 03-22-2025 Basic metabolic 1998 panel - Serum or Plasma Basic metabolic panel Lab Routine Generalized edema Expected: 03/22/2024 (Approximate), Expires: 03/22/2025 [facility] Work Phone: Comment on above: Expected: 03/22/2024 (Approximate), Expi res: 03/22/2025 Start: 03-22-2024 End: 03-22-2025 T3, reverse T3, reverse Lab Routine ESS (euthyroid sick syndrome) Acquired hypothyroidism ([facility]/HCC) Expected: 03/22/2024 (Approximate), Expires: 03/22/2025 [facility] Comment on above: Expected: 03/22/2024 (Approximate), Expi res: 03/22/2025 Start: 03-22-2024 End: 03-22-2025 Thyroid peroxidase antibody Thyroid peroxidase antibody Lab Routine Paroxysmal atrial fibrillation (CMS/HCC) ESS (euthyroid sick syndrome) Acquired hypothyroidism (CMS/HCC) Expected: 03/22/2024 (Approximate), Expires: 03/22/2025 [facility] Comment on above: Expected: 03/22/2024 (Approximate), Expi res: 03/22/2025 Start: 03-22-2024 End: 03-22-2025 Thyrotropin [Units/volume] in Serum or Plasma [facility] Comment on above: Expected: 03/22/2024 (Approximate), Expi res: 03/22/2025 Start: 03-22-2024 End: 03-22-2025 Thyroxine (T4) free [Mass/volume] in Serum or Plasma T4, free Lab Routine ESS (euthyroid sick syndrome) Acquired hypothyroidism (CMS/HCC) Expected: 03/22/2024 (Approximate), Expires: 03/22/2025 [facility] Comment on above: Expected: 03/22/2024 (Approximate), Expi res: 03/22/2025 Start: 03-22-2024 End: 03-22-2025 Triiodothyronine (T3) [Mass/volume] in Serum or Plasma T3 Lab Routine ESS (euthyroid sick syndrome) Acquired hypothyroidism (CMS/HCC) Expected: 03/22/2024 (Approximate), Expires: 03/22/2025 [facility] Comment on above: Expected: 03/22/2024 (Approximate), Expi res: 03/22/2025 Start: 03-22-2024 End: 03-22-2025 Triiodothyronine (T3) Free [Mass/volume] in Serum or Plasma T3, free Lab Routine ESS (euthyroid sick syndrome) Acquired hypothyroidism (CMS/HCC) Expected: 03/22/2024 (Approximate), Expires: 03/22/2025 [facility] Comment on above: Expected: 03/22/2024 (Approximate), Expi res: 03/22/2025 Start: 03-18-2024 End: 03-18-2025 COMMON RESPIRATORY BACTERIAL/VIRAL INFECTION (HTRX) COMMON RESPIRATORY BACTERIAL/VIRAL INFECTION (HTRX) Lab Routine Acute non-recurrent frontal sinusitis Acute bronchitis, unspecified organism Expected: 03/18/2024 (Approximate), Expires: 03/18/2025 [facility] Work Phone: Comment on above: Expected: 03/18/2024 (Approximate), Expi res: 03/18/2025 Start: 03-18-2024 End: 03-18-2024 Patient encounter procedure 03/18/2024 10:30 AM EST Office Visit [facility] [address] [place] [address] Alba Donovan PA [address] [place] [address] Arrived [facility] Comment on above: Arrived Start: 02-16-2024 End: 02-16-2024 Patient encounter procedure 02/16/2024 4:30 PM EST Office Visit [facility] [address] [place] [address] Alba Donovan PA [address] [place] [address] Arrived [facility] Comment on above: Arrived Start: 02-16-2024 End: 02-15-2025 Basic metabolic 1998 panel - Serum or Plasma Basic metabolic panel Lab Routine Benign essential hypertension (CMS/HCC) Generalized edema Expected: 02/16/2024 (Approximate), Expires: 02/15/2025 [facility] Comment on above: Expected: 02/16/2024 (Approximate), Expi res: 02/15/2025 Start: 02-16-2024 End: 02-15-2025 Holter monitor study Holter monitor Imaging Routine Benign essential hypertension (CMS/HCC) Palpitations Expected: 02/16/2024 (Approximate), Expires: 02/15/2025 [facility] Comment on above: Expected: 02/16/2024 (Approximate), Expi res: 02/15/2025 Start: 02-16-2024 End: 02-15-2025 TSH W/REFLEX TO FT4 TSH W/REFLEX TO FT4 Lab Routine Acquired hypothyroidism (CMS/HCC) Expected: 02/16/2024 (Approximate), Expires: 02/15/2025 [facility] Work Phone: Comment on above: Expected: 02/16/2024 (Approximate), Expi res: 02/15/2025 Start: 01-27-2024 End: 03-28-2025 MR Breast - bilateral WO and W contrast IV Bilateral breast MR with and without contrast Imaging Routine Family history of breast cancer Dense breasts Fibrocystic breast changes of both breasts Expected: 01/27/2024, Expires: 03/28/2025 [facility] Comment on above: Expected: 01/27/2024, Expires: Start: 12-14-2023 Covid-19 Vaccine () Covid-19 Vaccine () [facility] Start: 12-14-2023 Influenza vaccination Influenza Vaccine (#1) [facility] Start: 09-17-2023 Patient referral [facility] Work Phone: Start: 07-30-2023 Screening for malignant neoplasm of cervix [facility] Start: 07-20-2021 Screening for malignant neoplasm of breast [facility] Start: 2016 Pneumococcal Vaccine: 50+ (1 of 1 - PCV) Pneumococcal Vaccine: 50+ (1 of 1 - PCV) [facility] Start: 2016 Shingrix Vaccine (1 of 2) Shingrix Vaccine (1 of 2) [facility] Start: 10-29-2011 Diabetes Screening Diabetes Screening [facility] Start: 10-29-2011 Lipid panel Lipid Screening [facility] Start: 10-29-2011 Screening for malignant neoplasm of colon [facility] Start: 10-29-1987 Screening for malignant neoplasm of cervix [facility] Start: 1985 Hepatitis B Vaccine (1 of 3 - 19+ 3-dose series) Hepatitis B Vaccine (1 of 3 - 19+ 3-dose series) [facility] Start: 1985 Urine microalbumin profile DTaP,Tdap,Td Vaccine (1 - Tdap) [facility] Start: 1984 Annual PCP Team Chronic Disease Visit Annual PCP Team Chronic Disease Visit [facility] Start: 1984 Anxiety Screening Anxiety Screening [facility] Start: 1984 BP Controlled (<130/80) BP Controlled (<130/80) [facility] Start: 1984 Depression Screening Depression Screening [facility] Start: 1984 Hepatitis C screening Hepatitis C Screening [facility] Start: 1984 HIV screening HIV Screening [facility] Start: 1966 Screening for malignant neoplasm of colon [facility] Patient referral [facility] Work Phone: SENDOUT TEST MISCELLANEOUS [facility] SENDOUT TEST MISCELLANEOUS [facility] Lab Routine Screening for malignant neoplasm of cervix Encounter for gynecological examination without abnormal finding Ordered: 01/27/2024 [facility] Work Phone: Comment on above: Ordered: 01/27/2024 Payers Date Payer Category Payer Private Health Insurance [id number] 2023 Self-pay [id number] 2023 Private Health Insurance [id number] Private Health Insurance 1966 Unknown [id number] 2.16.84 [id number] 1966 Unknown [id number] 2.16.8 [id number] 1966 Unknown [id number] 2.16.84 [id number] 1966 Unknown [id number] 2.16.84 [id number] 1966 Unknown [id number] 2.16.84 [id number] 1966 Unknown [id number] 2.16.84 [id number] 1966 Unknown [id number] 2.16.84 [id number] 1966 Unknown [id number] 2.16.84 [id number] 1959 Self-pay [id number] Unknown [id number] 2.16.8 [id number] Unknown [id number] 2.16.8 [id number] Social History Date Type Detail Facility Start: 02-15-2016 End: 09-17-2023 Tobacco smoking status MEIS Ex-smoker (finding) [facility] Start: 1965 Sex Assigned At Female F [facility] Start: 10-06-2023 Tobacco smoking stat us [facility] Never smoked tobacco [facility] Start: 02-15-2016 End: 10-06-2023 Tobacco use and exposure Smokeless tobacco non-user [facility] Start: 01-27-2024 End: 04-21-2024 Alcoholic beverage intake Ex-drinker (finding) [facility] Start: 01-27-2024 End: 05-20-2024 History of Social function [facility] Start: 01-27-2024 End: 05-20-2024 Tobacco use panel [facility] Start: 1965 Sex assigned at Not on file [facility] History of tobacco use Current smoker [facility] History of tobacco use Cigarette Smoker C [facility] Start: 03-14-2016 Alcoholic beverage intake Current non-drinker of alcohol (finding) [facility] National Score (1-100), lower number is lower risk [address] [facility] Start: 08-13-2012 Tobacco Comment quit in 2002 [facility] Clinical Notes 12-10-2023 to 05-20-2024 Naina Thornton MD - 05/20/2024 9:04 AM Rian Cazares NP - 04/21/2024 3:30 PM ESTPatient InstructionsTelephone Encounter - ASAEL Broussard - 03/22/2024 4:27 PM EST Note Date & Type Note Facility 05-20-2024 Note HNO ID: [id number] Author: NAINA THORNTON MD Service: ? Author Type: Physician Type: Progress Notes Filed: 05/20/2024 10:01 Note Text: SELF REFERRAL Subjective: Juliana Neville is a 58 year old female here to establish care for hypothyroidism. History in brief, she was diagnosed with hypothyroidism ~ 37 years of age. Previously, her PCP managed hypothyroidism Current treatment: Levothyroxine 150 mcg daily She takes levothyroxine along with Eliquis and BP medications In addition, she also drinks electrolyte (iron, calcium and Magnesium) water within an hour of taking levothyroxine Previously, she was on Nature thyroid Reports that she has a lot of symptoms crisis for the past 1 year due to thyroid. She is concerned about kidney and heart, whether this could be related to thyroid General symptoms: Fatigue: yes She has JAIDEN, uses APAP 6 nights weekly Weight change: weight gain Appetite change: increased Change in bowel habits: No Temperature intolerance: sporadic heat and cold intolerance States that heat intolerance Dry skin: yes She has eczema She also reports muscle weakness in her arms Patient was recently dx with Hossein Saw cardiology She was started on a 2nd diuretic per cardiology Her dad has hypothyroidism Maternal aunts also have hypothyroidism She is also concerned about Cr level of 1 and decreased UOP REVIEW OF SYSTEMS: Answers submitted by the patient for this visit: Endocrine Review of Systems (Submitted on 05/19/2024) Fatigue: Yes Night sweats: No Recent unintentional weight change: Yes Skin Color Changes: No Post-Nasal Drip: Yes Thyroid Pain (lower neck): No Trouble Swallowing: No Vision Disturbance: Yes Chest pain: No Leg Swelling: Yes Blood Clots?: No Leg Pain while walking?: No Difficulty Breathing?: No Heartburn: No Nausea: No Vomiting: No Diarrhea: No Constipation: Yes Abdominal pain: Yes Bone Pain?: No Muscle aches: Yes Muscle weakness: Yes Joint pain or stiffness: No Headaches: No Dizziness: Yes Numbness?: No Urgency to Urinate?: No Increased Urination: No Slow or Small Urine Stream?: No Are your menstrual cycles regular?: No Are your menstrual cycles irregular?: No Have your menstrual cycles stopped?: Yes Flushing: Yes Hot Flashes?: Yes Increased Thirst: No Change in Body Hair?: Yes Cold Intolerance: Yes Heat Intolerance: Yes ALLERGIES: ALLERGIES Allergen Reactions Citalopram Other: See Comments Roaring in Ears MEDICATIONS: Current Outpatient Medications on File Prior to Visit Medication Sig CAPMIST DM 60-15-400 mg tab take 1 tablet by mouth every 6 hours as needed for cough levothyroxine (SYNTHROID) 150 mcg tablet Take 150 mcg by mouth. losartan (COZAAR) 100 mg tablet Take 100 mg by mouth. VTAMA 1 % cream HYDROcodone-acetaminophen (NORCO) 5-325 mg per tablet Take 1-2 tablets by mouth every 4 hours as needed. docusate sodium (COLACE) 100 mg capsule Take one capsule twice daily while taking pain medications to prevent constipation. Hold if loose stool No current facility-administered medications on file prior to visit. PAST MEDICAL HISTORY: PAST MEDICAL HISTORY Diagnosis Date HTN (hypertension) Hypothyroidism Leg pain Morbidly obese (HCC) Psoriasis PAST SURGICAL HISTORY: PAST SURGICAL HISTORY Procedure Laterality Date PAST SURGICAL HISTORY OF 1987 C Section PAST SURGICAL HISTORY OF ? mass near urinary tract. - PERIURETHRAL MASS, EXCISION - WELL-DIFFERENTIATED SMOOTH MUSCLE NEOPLASM OF FAMILY HISTORY: FAMILY HISTORY Problem Relation Age of Onset Heart Father Colon Cancer Father Emphysema Mother Hypertension Mother Lipids Mother Diabetes Brother Hypertension Brother SOCIAL HISTORY: Social History Tobacco Use Smoking status: Former Types: Cigarettes Smokeless tobacco: Never Tobacco comments: quit in 2002 Substance Use Topics Alcohol use: No Drug use: No PHYSICAL EXAM: BP 123/80 Ht 162.6 cm (5' 4 ) Wt 133.3 kg (293 lb 14 oz) LMP 02/20/2016 BMI 50.44 kg/m? Last 3 Encounter Wt Readings: Date: Wt: 05/20/2024 133.3 kg (293 lb 14 oz) 03/14/2016 121.8 kg (268 lb 8 oz) 02/15/2016 120.2 kg (264 lb 15.9 oz) General: Alert and oriented x3, no acute distress Eyes: Anicteric sclera. Pupils are equally round. Extraocular movements are intact. Neck supple, no cervical lymphadenopathy Thyroid: small, no palpable nodules Lungs: Breathing unlabored, clear to auscultation. No wheezing Heart regular rate and rhythm, no murmer Musculoskeletal: Muscular strength intact, No joint swelling Neuro: Gait normal. Sensation grossly intact. No focal findings Extremities: non pitting edema in LE, no deformities Skin: no rashes/ erythema LAB: Apr 2024 Outside TSH was 15.25 ASSESSMENT/PLAN: Hypothyroidism Elevated TSH Weight gain Hossein Chronic fatigue JAIDEN Clinically and bio-chemically hypothyroid (more content not included)... [facility] 05-20-2024 History of Present illness Narrative SELF REFERRAL Subjective: Juliana Neville is a 58 year old female here to establish care for hypothyroidism. History in brief, she was diagnosed with hypothyroidism ~ 37 years of age. Previously, her PCP managed hypothyroidism Current treatment: Levothyroxine 150 mcg daily She takes levothyroxine along with Eliquis and BP medications In addition, she also drinks electrolyte (iron, calcium and Magnesium) water within an hour of taking levothyroxine Previously, she was on Nature thyroid Reports that she has a lot of symptoms crisis for the past 1 year due to thyroid. She is concerned about kidney and heart, whether this could be related to thyroid General symptoms: Fatigue: yes She has JAIDEN, uses APAP 6 nights weekly Weight change: weight gain Appetite change: increased Change in bowel habits: No Temperature intolerance: sporadic heat and cold intolerance States that heat intolerance Dry skin: yes She has eczema She also reports muscle weakness in her arms Patient was recently dx with Hossein Saw cardiology She was started on a 2nd diuretic per cardiology Her dad has hypothyroidism Maternal aunts also have hypothyroidism She is also concerned about Cr level of 1 and decreased UOP REVIEW OF SYSTEMS: Answers submitted by the patient for this visit: Endocrine Review of Systems (Submitted on 05/19/2024) Fatigue: Yes Night sweats: No Recent unintentional weight change: Yes Skin Color Changes: No Post-Nasal Drip: Yes Thyroid Pain (lower neck): No Trouble Swallowing: No Vision Disturbance: Yes Chest pain: No Leg Swelling: Yes Blood Clots?: No Leg Pain while walking?: No Difficulty Breathing?: No Heartburn: No Nausea: No Vomiting: No Diarrhea: No Constipation: Yes Abdominal pain: Yes Bone Pain?: No Muscle aches: Yes Muscle weakness: Yes Joint pain or stiffness: No Headaches: No Dizziness: Yes Numbness?: No Urgency to Urinate?: No Increased Urination: No Slow or Small Urine Stream?: No Are your menstrual cycles regular?: No Are your menstrual cycles irregular?: No Have your menstrual cycles stopped?: Yes Flushing: Yes Hot Flashes?: Yes Increased Thirst: No Change in Body Hair?: Yes Cold Intolerance: Yes Heat Intolerance: Yes ALLERGIES: ALLERGIES Allergen Reactions Citalopram Other: See Comments Roaring in Ears MEDICATIONS: Current Outpatient Medications on File Prior to Visit Medication Sig CAPMIST DM 60-15-400 mg tab take 1 tablet by mouth every 6 hours as needed for cough levothyroxine (SYNTHROID) 150 mcg tablet Take 150 mcg by mouth. losartan (COZAAR) 100 mg tablet Take 100 mg by mouth. VTAMA 1 % cream HYDROcodone-acetaminophen (NORCO) 5-325 mg per tablet Take 1-2 tablets by mouth every 4 hours as needed. docusate sodium (COLACE) 100 mg capsule Take one capsule twice daily while taking pain medications to prevent constipation. Hold if loose stool No current facility-administered medications on file prior to visit. PAST MEDICAL HISTORY: PAST MEDICAL HISTORY Diagnosis Date HTN (hypertension) Hypothyroidism Leg pain Morbidly obese (HCC) Psoriasis PAST SURGICAL HISTORY: PAST SURGICAL HISTORY Procedure Laterality Date PAST SURGICAL HISTORY OF 1987 C Section PAST SURGICAL HISTORY OF ? mass near urinary tract. - PERIURETHRAL MASS, EXCISION - WELL-DIFFERENTIATED SMOOTH MUSCLE NEOPLASM OF FAMILY HISTORY: FAMILY HISTORY Problem Relation Age of Onset Heart Father Colon Cancer Father Emphysema Mother Hypertension Mother Lipids Mother Diabetes Brother Hypertension Brother SOCIAL HISTORY: Social History Tobacco Use Smoking status: Former Types: Cigarettes Smokeless tobacco: Never Tobacco comments: quit in 2002 Substance Use Topics Alcohol use: No Drug use: No PHYSICAL EXAM: BP 123/80 Ht 162.6 cm (5' 4 ) Wt 133.3 kg (293 lb 14 oz) LMP 02/20/2016 BMI 50.44 kg/m Last 3 Encounter Wt Readings: Date: Wt: 05/20/2024 133.3 kg (293 lb 14 oz) 03/14/2016 121.8 kg (268 lb 8 oz) 02/15/2016 120.2 kg (264 lb 15.9 oz) General: Alert and oriented x3, no acute distress Eyes: Anicteric sclera. Pupils are equally round. Extraocular movements are intact. Neck supple, no cervical lymphadenopathy Thyroid: small, no palpable nodules Lungs: Breathing unlabored, clear to auscultation. No wheezing Heart regular rate and rhythm, no murmer Musculoskeletal: Muscular strength intact, No joint swelling Neuro: Gait normal. Sensation grossly intact. No focal findings Extremities: non pitting edema in LE, no deformities Skin: no rashes/ erythema LAB: Apr 2024 Outside TSH was 15.25 ASSESSMENT/PLAN: Hypothyroidism Elevated TSH Weight gain A.fib Chronic fatigue JAIDEN Clinically and bio-chemically hypothyroid Electrolyte water has calcium and iron, which is interfering levothyroxine absorption Recommended her to make sure that electrolyte water is alteast 2 hours apart form levothyroxine Increase levothyroxine to 175 mcg daily Recheck TSH in 6 weeks Indicated to the patient that hyperthyroidism can lead to A.Fib, not hypothyroidism Avoid TSH suppression given that she has A.Fib Fatigue is multifactorial Suggested her to see sleep medicine regarding JAIDEN I reviewed her outside Cr, it was normal Given decreased UOP and her concerns regarding Cr, I offered referral to nephrology Patient wants to hold off I will notify the patient once the lab results become available Follow up in 4 months, this can be a virtual visit documented in this encounter [facility] 04-27-2024 Note [place] Electrophysiology Consult Note [place] Cardiology - [facility] Reason for visit: HPI: Juliana Neville is a 58 y.o. year old with past medical history of melanoma and recent Dx of Afib. New patient here to establish care for afib. She was previously seen back in [address] Connell for sinus bradycardia and LE edema. She was started on Xarelto and atenolol about 6 weeks ago and has been itching the past 5 days or so. Has been having lots of LE edema and recently started a new job where she is very sedentary. Sometimes it resolves by morning, other times is worse in the mornings. She does not recall any syncope. She had a 7d Holter for palpitations which detected some AF and was then placed on DOAC. PMH: Past Medical History: Diagnosis Date Abnormal ECG Arrhythmia Atrial fibrillation (CMS/HCC) Cancer (CMS/HCC) Hypertension PSH: Past Surgical History: Procedure Laterality Date SECTION, CLASSIC SH: Social Determinants of Health Tobacco Use: Medium Risk (04/27/2024) Patient History Smoking Tobacco Use: Former Smokeless Tobacco Use: Never Passive Exposure: Not on file Alcohol Use: Not on file Financial Resource Strain: Not on file Food Insecurity: Not on file Transportation Needs: Not on file Physical Activity: Not on file Stress: Not on file Social Connections: Not on file Intimate Partner Violence: Not on file Depression: Not at risk (01/27/2024) Received from [facility] PHQ-2 Patient Health Questionnaire-2 Score: 1 Housing Stability: Not on file Utilities: Not on file Health Literacy: Not on file Allergies: No Known Allergies Weight: 134kg Visit Vitals BP 120/73 (BP Location: Left wrist, Patient Position: Sitting) Pulse 50 Ht 1.626 m (5' 4 ) Wt 134 kg (295 lb) SpO2 99% BMI 50.64 kg/m??? Smoking Status Former BSA 2.46 m??? Meds: Current Outpatient Medications on File Prior to Visit Medication Sig Dispense Refill atenolol (Tenormin) 25 mg tablet Take 25 mg by mouth in the morning. buPROPion SR (Wellbutrin SR) 100 mg 12 hr tablet Take 100 mg by mouth in the morning. levothyroxine (Synthroid, Levoxyl) 150 mcg tablet Take 150 mcg by mouth in the morning. losartan (Cozaar) 100 mg tablet Take 100 mg by mouth in the morning. triamterene-hydroCHLOROthiazide (Maxzide-25) 37.5-25 mg tablet Take 1 tablet by mouth in the morning. Xarelto 20 mg tablet Take 20 mg by mouth daily with evening meal. No current facility-administered medications on file prior to visit. ROS: Review of Systems Cardiovascular: Positive for dyspnea on exertion (when she feel like shes in afib), leg swelling and palpitations. All other systems reviewed and are negative. Physical Exam: Constitutional General Appearance: well-nourished, well-developed, appears stated age Level of Distress: comfortable Eyes MIMI Neck Neck: supple, trachea midline Carotid Arteries: bilateral normal upstroke, no bruits Jugular Veins: normal jugular venous pressure Thyroid: not enlarged Lungs Respiratory Effort: unlabored Chest Exam: normal curvature, no thoracic deformity Auscultation: clear, no wheezing, no rales, no rhonchi Cardiovascular Chest wall: Rate And Rhythm: regular Heart Sounds: normal S1, normal s2, no gallop Systolic Murmur: not heard Diastolic Murmur: not heard Extremities: no cyanosis, no edema, no peripheral signs of emboli Peripheral Pulses Radial Pulse: normal Abdomen Inspection and Palpation: soft, non distended, no bruit, non tender Neurologic Gait: normal gait Labs: @LABRESULTS@ No results found for: CHOLESTEROL TOTAL , HDL , LDL CALC , LDL DIRECT , TRIGLYCERIDES , TSH , T3 TOTAL , T4 TOTAL , THYROID PEROXIDASE AB , BNP EKG: No results found for this or any previous visit (from the past 4464 hour(s)). Echo: Stress test: Coronary angiogram: @CATH@ Diagnostic Imaging: Predominant rhythm is sinus with average rate of 65 bpm Tachycardia - max rate of 153 bpm (atrial fib) Bradycardia - min rate of 43 bpm Ventriculars ectopy - 137 total, <1% burden - 135 PVC - 2 couplets Atrial fibrillation - 2% burden w/ the longest episodes of 2h 21min 16sec Patient triggered events: 2 - associated with palpitations - associated with atrial fib Impression: Predominant rhythm is sinus with average rate of 65 bpm Fastest rate of 153 bpm (atrial fib) and slowest rate of 43 bpm 135 PVC, 2 couplets 2% atrial fibrillation burden w/ longest episodes of 2h 21min 16sec Electronically Signed On 03-21-2024 19:01:31 EST by CHRISTIANO VELAZQUEZ Assessment and Plan: - New Dx of Afib: Will proceed with ECHO kimberli rule out structural heart disease. She is on DOAC for stroke prevention and will recc LOOP for furher delineation of AF. If this is not feasible, then 30d event monitor can be done. We discussed about natural history of the disease and importance of weight loss and JAIDEN eval. - (more content not included)... [facility] 04-21-2024 History of Present illness Narrative Images from the original note were not included. Subjective Patient ID: Juliana Neville is a 58 y.o. female who presents for flu like symptoms. Juliana presents today with a sore throat with sinus drainage and chills. This has been going on for 3 days. Current Outpatient Medications on File Prior to Visit Medication Sig Dispense Refill ALPRAZolam (Xanax) 2 MG tablet Take 1 tablet (2 mg) by mouth 1 time for 1 dose Take prior to MRI 1 tablet 0 atenolol (Tenormin) 25 MG tablet Take 1 tablet (25 mg) by mouth Daily 30 tablet 2 BERBERINE buPROPion SR (Wellbutrin SR) 100 MG 12 hr tablet TAKE 1 TABLET (100 MG) BY MOUTH DAILY DO NOT CRUSH, CHEW, OR SPLIT. 30 tablet 1 fluocinolone ([place]) 0.01 % external oil APPLY TO AFFECTED AREAS ON TRUNK AND AND EXTREMITIES ONCE DAILY. levothyroxine (Synthroid, Levoxyl) 150 MCG tablet TAKE 1 TABLET BY MOUTH DAILY IN THE MORNING ON AN EMPTY STOMACH 90 tablet 3 losartan (Cozaar) 100 MG tablet TAKE 1 TABLET BY MOUTH ONCE DAILY 90 tablet 3 rivaroxaban (Xarelto) 20 MG tablet Take 1 tablet (20 mg) by mouth in the evening. Take with meals Take with food. 30 tablet 2 senna-docusate sodium (Senokot-S) 8.6-50 MG tablet Take 1 tablet by mouth Daily PRN triamterene-hydrochlorothiazide (Maxzide-25) 37.5-25 MG tablet TAKE 1 TABLET BY MOUTH EVERY DAY IN THE MORNING 100 tablet 3 VITAMIN D PO Take 1 tablet by mouth Daily Vtama 1 % cream [DISCONTINUED] buPROPion SR (Wellbutrin SR) 100 MG 12 hr tablet Take 1 tablet (100 mg) by mouth Daily Do not crush, chew, or split. 30 tablet 1 [DISCONTINUED] triamterene-hydrochlorothiazide (Maxzide-25) 37.5-25 MG tablet TAKE 1 TABLET BY MOUTH EVERY DAY IN THE MORNING 30 tablet 0 No current facility-administered medications on file prior to visit. I have reviewed and reconciled the history and medication list with the patient today. Allergies Allergen Reactions Citalopram Other Roaring in Ears Social History Tobacco Use Smoking status: Never Smokeless tobacco: Never Vaping Use Vaping status: Never Used Substance Use Topics Alcohol use: Not Currently Drug use: Never Family History Problem Relation Name Age of Onset COPD Mother Hypertension Father Diabetes Brother Obesity Brother Breast cancer Maternal Grandmother Past Medical History: Diagnosis Date Anemia Disease of thyroid gland (CMS/HCC) Euthyroid sick syndrome Hypertension (CMS/HCC) Intestinal dysbiosis Obesity Psoriasis (CMS/HCC) Urethral cyst mass - begnign Dr. Joel Hamilton [facility] Past Surgical History: Procedure Laterality Date SECTION, LOW TRANSVERSE COLONOSCOPY 2009 ESOPHAGOGASTRODUODENOSCOPY 2010 VAGINAL MASS EXCISION [address] Joel Lindsey Visit Vitals OB Status Postmenopausal Smoking Status Never Review of Systems Constitutional: Positive for activity change, chills and fatigue. HENT: Positive for congestion, sinus pressure, sinus pain and sore throat. Eyes: Negative. Gastrointestinal: Negative. Genitourinary: Negative. Musculoskeletal: Positive for arthralgias and myalgias. Skin: Negative. Neurological: Negative. Psychiatric/Behavioral: Negative. Hematological: Negative. Endocrine: Negative. Allergic/Immunologic: Negative. Objective Physical Exam Vitals reviewed. Constitutional: Appearance: She is ill-appearing. HENT: Head: Normocephalic and atraumatic. Right Ear: External ear normal. Left Ear: External ear normal. Ears: Comments: TM's dull bilaterally, canals with mild redness, no bulge or retraction is noted Mouth/Throat: Mouth: Mucous membranes are moist. Pharynx: Oropharyngeal exudate and posterior oropharyngeal erythema present. Cardiovascular: Rate and Rhythm: Normal rate and regular rhythm. Heart sounds: Normal heart sounds. Pulmonary: Effort: Pulmonary effort is normal. Breath sounds: Normal breath sounds. Abdominal: Palpations: Abdomen is soft. Musculoskeletal: General: Normal range of motion. Cervical back: Normal range of motion and neck supple. Skin: General: Skin is warm and dry. Neurological: Mental Status: She is alert and oriented to person, place, and time. Psychiatric: Mood and Affect: Mood normal. Behavior: Behavior normal. Thought Content: Thought content normal. Judgment: Judgment normal. Assessment/Plan 1. Acute non-recurrent frontal sinusitis (Primary) Discussed diagnosis, use of amoxicillin and its most common side effects. Advised to increase her fluids, rest, continue the atb as ordered and follow up if continued or worsening symptoms. - amoxicillin (Amoxil) 500 MG capsule; Take 1 capsule (500 mg) by mouth in the morning and 1 capsule (500 mg) in the evening and 1 capsule (500 mg) before bedtime. Do all this for 10 days. Dispense: 30 capsule; Refill: 0 2. Fever and chills Negative testing discussed with the pt today. - POCT Influenza A/B - amoxicillin (Amoxil) 500 MG capsule; Take 1 capsule (500 mg) by mouth in the morning and 1 capsule (500 mg) in the evening and 1 capsule (500 mg) before bedtime. Do all this for 10 days. Dispense: 30 capsule; Refill: 0 3. Vaginal yeast infection Discussed use of fluconazole for vaginal yeast following her ATB dosage. - fluconazole (Diflucan) 150 MG tablet; Take 1 tablet (150 mg) by mouth Daily for 2 days 1 tablet following the atb dosage x 1 day, then repeat x 1 tablet in 3 days. Dispense: 2 tablet; Refill: 0 No follow-ups on file. documented in this encounter [facility] 04-21-2024 Instructions Sherrie Cazares NP - 04/21/2024 3:30 PM EST Amoxicillin ordered today. [place] DMT samples given documented in this encounter [facility] 03-22-2024 Telephone encounter Note Spoke with patient. Reviewed the above information in detail with patient. She has had issues with her heart rhythm before when her thyroid was out of whack, requesting full thyroid panel labs, states TSH is never enough for her. Ordered. She is agreeable to new medications for the time being. [facility] 03-22-2024 Miscellaneous Notes Spoke with patient. Reviewed the above information in detail with patient. She has had issues with her heart rhythm before when her thyroid was out of whack, requesting full thyroid panel labs, states TSH is never enough for her. Ordered. She is agreeable to new medications for the time being. Need to speak with pt to let her know that her Holter Monitor showed 2% of the time she was in an abnormal heart rhythm called Atrial Fibrillation. This lasted for 2 hours and 21 minutes at one point. In this condition the top part of the heart beast irregularly and decreases the efficiency of how the blood pumps. It does also increase her risk of blood clots. She needs to stop the Capmist as that could aggravate her symptoms. I sent in a medication called Atenolol to help pt control her heart rate and sent in Xarelto, a blood thinner to help prevent clots. Needs to monitor her blood pressure. Xarelto can make it harder for her to stop bleeding if she is injured. I have placed a referral to Cardiology and they should be contacting her to get scheduled once our referral team gets it approved through her insurance. LM for pt to return call. documented in this encounter [facility] 03-22-2024 Telephone encounter Note Need to speak with pt to let her know that her Holter Monitor showed 2% of the time she was in an abnormal heart rhythm called Atrial Fibrillation. This lasted for 2 hours and 21 minutes at one point. In this condition the top part of the heart beast irregularly and decreases the efficiency of how the blood pumps. It does also increase her risk of blood clots. She needs to stop the Capmist as that could aggravate her symptoms. I sent in a medication called Atenolol to help pt control her heart rate and sent in Xarelto, a blood thinner to help prevent clots. Needs to monitor her blood pressure. Xarelto can make it harder for her to stop bleeding if she is injured. I have placed a referral to Cardiology and they should be contacting her to get scheduled once our referral team gets it approved through her insurance. LM for pt to return call. [facility] 03-18-2024 History of Present illness Narrative Images from the original note were not included. Subjective Patient ID: Juliana Neville is a 58 y.o. female who presents for cough/congestion. Juliana is present today for evaluation of cough. Admits sinus pressure, headaches, post nasal drainage, sore throat, cough both dry and phlegm (has not looked a color, wheezing, body aches, fatigue. Started on Friday and has been taking cough drops and nyquil. Current Outpatient Medications on File Prior to Visit Medication Sig Dispense Refill fluocinolone ([place]) 0.01 % external oil APPLY TO AFFECTED AREAS ON TRUNK AND AND EXTREMITIES ONCE DAILY. Vtama 1 % cream ALPRAZolam (Xanax) 2 MG tablet Take 1 tablet (2 mg) by mouth 1 time for 1 dose Take prior to MRI 1 tablet 0 BERBERINE buPROPion SR (Wellbutrin SR) 100 MG 12 hr tablet Take 1 tablet (100 mg) by mouth Daily Do not crush, chew, or split. 30 tablet 1 levothyroxine (Synthroid, Levoxyl) 150 MCG tablet TAKE 1 TABLET BY MOUTH DAILY IN THE MORNING ON AN EMPTY STOMACH 90 tablet 3 losartan (Cozaar) 100 MG tablet TAKE 1 TABLET BY MOUTH ONCE DAILY 90 tablet 3 senna-docusate sodium (Senokot-S) 8.6-50 MG tablet Take 1 tablet by mouth Daily PRN triamterene-hydrochlorothiazide (Maxzide-25) 37.5-25 MG tablet TAKE 1 TABLET BY MOUTH EVERY DAY IN THE MORNING 30 tablet 0 VITAMIN D PO Take 1 tablet by mouth Daily No current facility-administered medications on file prior to visit. I have reviewed and reconciled the history and medication list with the patient today. Allergies Allergen Reactions Citalopram Other Roaring in Ears Social History Tobacco Use Smoking status: Never Smokeless tobacco: Never Vaping Use Vaping status: Never Used Substance Use Topics Alcohol use: Not Currently Drug use: Never Family History Problem Relation Name Age of Onset COPD Mother Hypertension Father Diabetes Brother Obesity Brother Breast cancer Maternal Grandmother Past Medical History: Diagnosis Date Anemia Disease of thyroid gland (CMS/HCC) Euthyroid sick syndrome Hypertension (CMS/HCC) Intestinal dysbiosis Obesity Psoriasis (CMS/HCC) Urethral cyst mass - begnign Dr. Joel Hamilton [facility] Past Surgical History: Procedure Laterality Date SECTION, LOW TRANSVERSE COLONOSCOPY 2010 ESOPHAGOGASTRODUODENOSCOPY 2010 VAGINAL MASS EXCISION [address] Joel Lindsey Visit Vitals BP 132/82 Pulse 73 Temp 99.2 F Resp 16 Ht 5' 4 Wt 292 lb 12.8 oz SpO2 97% BMI 50.26 kg/m OB Status Postmenopausal Smoking Status Never BSA 2.45 m Review of Systems Constitutional: Positive for fatigue. Negative for chills and fever. HENT: Positive for congestion, postnasal drip, rhinorrhea, sinus pressure, sinus pain and sore throat. Negative for ear pain. Respiratory: Positive for cough and wheezing. Negative for shortness of breath. Cardiovascular: Negative for chest pain, palpitations and leg swelling. Gastrointestinal: Negative for abdominal pain, constipation, diarrhea, nausea and vomiting. Musculoskeletal: Positive for myalgias. Neurological: Positive for headaches. Objective Physical Exam Constitutional: General: She is not in acute distress. Appearance: She is well-developed. She is obese. She is ill-appearing. HENT: Head: Normocephalic and atraumatic. Right Ear: Tympanic membrane and ear canal normal. Left Ear: Tympanic membrane and ear canal normal. Nose: Congestion present. Right Turbinates: Swollen. Left Turbinates: Swollen. Right Sinus: Frontal sinus tenderness present. Left Sinus: Frontal sinus tenderness present. Comments: Turbinates erythematous Mouth/Throat: Mouth: Mucous membranes are moist. Pharynx: Postnasal drip present. No posterior oropharyngeal erythema. Eyes: General: No scleral icterus. Conjunctiva/sclera: Conjunctivae normal. Cardiovascular: Rate and Rhythm: Normal rate and regular rhythm. Heart sounds: Normal heart sounds. No murmur heard. Pulmonary: Effort: Pulmonary effort is normal. No respiratory distress. Breath sounds: Decreased air movement present. No wheezing, rhonchi or rales. Comments: Difficulty taking a deep breath without coughing, dry cough Lymphadenopathy: Cervical: Cervical adenopathy (Bilateral submandibular) present. Skin: General: Skin is warm and dry. Neurological: General: No focal deficit present. Mental Status: She is alert and oriented to person, place, and time. Psychiatric: Mood and Affect: Mood normal. Behavior: Behavior normal. Assessment/Plan Diagnoses and all orders for this visit: Acute non-recurrent frontal sinusitis - [id number] 60-15-400 MG tablet; Take 1 tablet by mouth every 6 (six) hours if needed (Cough) - COMMON RESPIRATORY BACTERIAL/VIRAL INFECTION (HTRX); Future Start Capmist prn for symptoms. Reviewed potential s/e. Encouraged her to monitor her BP while taking it. Stay hydrated, get plenty of rest. Tylenol prn. Nasal swab sent out for further evaluation. If indicated based on results, can start pt on an antibiotic. Follow up in no improvement over the next week. Acute bronchitis, unspecified organism - COMMON RESPIRATORY BACTERIAL/VIRAL INFECTION (HTRX); Future See above. Follow up for Appointment As Scheduled. documented in this encounter [facility] 02-16-2024 History of Present illness Narrative Images from the original note were not included. HPI Heart Problem Additional comments: She has been having a fluttering sensation in her heart and she has no idea how long it's been going on for but just recently started paying attention to it. Feels like she misses a heart beat ever 12-15 beats. Feels like she needs to cough when it happens. Depression Additional comments: She was wanting to discuss the Wellbutrin with you today. States she was on Celexa and Paxil and both caused her to have a roaring in my ears . Lab Orders Additional comments: Would like a lab for her thyroid levels to be tested. Last edited by ASAEL Broussard on 02/16/2024 5:02 PM. Subjective Patient ID: Juliana Neville is a 58 y.o. female who presents for fluid retention. Juliana is present today for evaluation of fluid retention. 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 Mostly from hips down, fingers are swollen, has been going on for 6 months. Tries to walk at lunch and tries to get up and walk during the day also. States the other day it was so bad that she took a water pill twice in one day. Tries to hit 5000 steps a day at least 4 days a week. Drinks 4-6 glasses of water a day. Some days more and some less. Drinks some lexus tea. Drinks coffee. Drinks an electrolyte drink every morning with potassium, magnesium and sodium. Still postponing the biologics for Psoriasis. Is scheduled for a Breast MRI. Current Outpatient Medications on File Prior to Visit Medication Sig Dispense Refill BERBERINE levothyroxine (Synthroid, Levoxyl) 150 MCG tablet TAKE 1 TABLET BY MOUTH DAILY IN THE MORNING ON AN EMPTY STOMACH 90 tablet 3 losartan (Cozaar) 100 MG tablet TAKE 1 TABLET BY MOUTH ONCE DAILY 90 tablet 3 senna-docusate sodium (Senokot-S) 8.6-50 MG tablet Take 1 tablet by mouth Daily PRN triamterene-hydrochlorothiazide (Maxzide-25) 37.5-25 MG tablet TAKE 1 TABLET BY MOUTH EVERY DAY IN THE MORNING 30 tablet 0 VITAMIN D PO Take 1 tablet by mouth Daily No current facility-administered medications on file prior to visit. I have reviewed and reconciled the history and medication list with the patient today. Allergies Allergen Reactions Citalopram Other Roaring in Ears Social History Tobacco Use Smoking status: Never Smokeless tobacco: Never Vaping Use Vaping status: Never Used Substance Use Topics Alcohol use: Not Currently Drug use: Never Family History Problem Relation Name Age of Onset COPD Mother Hypertension Father Diabetes Brother Obesity Brother Breast cancer Maternal Grandmother Past Medical History: Diagnosis Date Anemia Disease of thyroid gland (CMS/HCC) Euthyroid sick syndrome Hypertension (CMS/HCC) Intestinal dysbiosis Obesity Psoriasis (CMS/HCC) Urethral cyst mass - begnign Dr. Joel Hamilton [facility] Past Surgical History: Procedure Laterality Date SECTION, LOW TRANSVERSE COLONOSCOPY 2009 ESOPHAGOGASTRODUODENOSCOPY 2009 VAGINAL MASS EXCISION [address] Joel Lindsey Visit Vitals BP (!) 138/94 Pulse 60 Resp 16 Ht 5' 4 Wt 294 lb SpO2 98% BMI 50.46 kg/m OB Status Postmenopausal Smoking Status Never BSA 2.45 m Review of Systems Constitutional: Negative for chills, fatigue and fever. Respiratory: Negative for cough, shortness of breath and wheezing. Cardiovascular: Positive for palpitations and leg swelling. Negative for chest pain. Gastrointestinal: Negative for abdominal pain, constipation, diarrhea, nausea and vomiting. Musculoskeletal: Positive for joint swelling. Skin: Negative for rash. Objective Physical Exam Constitutional: General: She is not in acute distress. Appearance: She is well-developed. She is obese. HENT: Head: Normocephalic and atraumatic. Eyes: General: No scleral icterus. Conjunctiva/sclera: Conjunctivae normal. Cardiovascular: Rate and Rhythm: Normal rate and regular rhythm. Heart sounds: Normal heart sounds. No murmur heard. Pulmonary: Effort: Pulmonary effort is normal. No respiratory distress. Breath sounds: Normal breath sounds. No wheezing, rhonchi or rales. Skin: General: Skin is warm and dry. Neurological: General: No focal deficit present. Mental Status: She is alert and oriented to person, place, and time. Psychiatric: Mood and Affect: Mood normal. Behavior: Behavior normal. Assessment/Plan Diagnoses and all orders for this visit: Benign essential hypertension (CMS/HCC) - triamterene-hydrochlorothiazide (Maxzide-25) 37.5-25 MG tablet; Take 2 tablets by mouth Daily - Basic metabolic panel; Future Will increase the water pill to two tablets daily. Will recheck kidney function and electrolytes in a week. Morbid obesity (CMS/HCC) Encouraged pt to continue to gradually become more active. Aim for gradual weight loss. Acquired hypothyroidism (CMS/HCC) - TSH W/REFLEX TO FT4; Future Will recheck TSH with next week's lab work. Anxiety about health - buPROPion SR (Wellbutrin SR) 100 MG 12 hr tablet; Take 1 tablet (100 mg) by mouth Daily Do not crush, chew, or split. Discussed this class of medication with the patient. Explained potential benefits and potential risks of this class of medication. Pt is agreeable to starting a new medication at this time. New prescription sent to the pharmacy for the patient. Will recheck in 3-4 weeks or sooner if needed. Any worsening of symptoms the patient is to stop the medication immediately and contact our office. ER if concerns. Previous medication from Dr. Allen for anxiety prior to testing, Valium did not work for her. Xanax helped a little at the 1 mg dosage. Pt does not wish to try Ativan. Sent in a prescription for 2 mg of the Xanax. She can take this prior to upcoming testing. JAIDEN (obstructive sleep apnea) Compliant with BiPAP use and perceives benefit. Generalized edema - Basic metabolic panel; Future Will recheck BMP in one week. Will recheck symptoms at follow up with increased diuretic dosage. Palpitations Provided pt with order to have Holter Monitor placed at [facility] for 7 days for further evaluation of current symptoms. Follow up in about 4 weeks (around 03/15/2024) for Medication Follow Up. documented in this encounter [facility] 01-27-2024 History of Present illness Narrative Images from the original note were not included. Waldo Alexander MD Obstetrics and Gynecology Patient: Juliana Neville : 1965 (58 y.o.) Yearly Wellness Exam Date: 01/27/2024 Reason for Visit - Chief Complaint Patient presents with Gynecologic Exam LMP: [employer] Last Mammogram: 07/20/20- refused mammogram in 2021 Last Pap: 07/29/2018- neg Colonoscopy: 10/25/20 Complaints: low sex drive, vaginal pain, pain in both ovaries. Would like to discuss other options instead of doing a mamm Visit Vitals Wt 291 lb BMI 49.95 kg/m OB Status Postmenopausal Smoking Status Never BSA 2.44 m History of Present Illness, Associated Treatments and Results - OB History Para Term AB Living 2 0 0 0 1 0 SAB IAB Ectopic Multiple Live Births 0 0 0 0 1 # Outcome Date GA Lbr Yo/2nd Weight Sex Type Anes PTL Lv 2 1 AB Review of Systems - Constitutional: Negative. HENT: Negative. Eyes: Negative. Respiratory: Negative. Cardiovascular: Negative. Gastrointestinal: Negative. Endocrine: Negative. Genitourinary: Negative. Musculoskeletal: Negative. Skin: Negative. Allergic/Immunologic: Negative. Neurological: Negative. Hematological: Negative. Psychiatric/Behavioral: Negative. Allergies Allergen Reactions Citalopram Other Roaring in Ears Current Outpatient Medications: BERBERINE, , Disp: , Rfl: levothyroxine (Synthroid, Levoxyl) 150 MCG tablet, TAKE 1 TABLET BY MOUTH DAILY IN THE MORNING ON AN EMPTY STOMACH, Disp: 90 tablet, Rfl: 3 losartan (Cozaar) 100 MG tablet, TAKE 1 TABLET BY MOUTH ONCE DAILY, Disp: 90 tablet, Rfl: 3 senna-docusate sodium (Senokot-S) 8.6-50 MG tablet, Take 1 tablet by mouth Daily, Disp: , Rfl: triamterene-hydrochlorothiazide (Maxzide-25) 37.5-25 MG tablet, TAKE 1 TABLET BY MOUTH EVERY DAY IN THE MORNING, Disp: 30 tablet, Rfl: 0 VITAMIN D PO, Take 1 tablet by mouth Daily, Disp: , Rfl: Past Medical History: Diagnosis Date Anemia Disease of thyroid gland (CMS/HCC) Euthyroid sick syndrome Hypertension (CMS/HCC) Intestinal dysbiosis Obesity Psoriasis (CMS/HCC) Urethral cyst mass - begnign Dr. Joel Hamilton [facility] Past Surgical History: Procedure Laterality Date SECTION, LOW TRANSVERSE COLONOSCOPY 2009 ESOPHAGOGASTRODUODENOSCOPY 2009 VAGINAL MASS EXCISION [address] Joel Lindsey Family History Problem Relation Name Age of Onset COPD Mother Hypertension Father Diabetes Brother Obesity Brother Breast cancer Maternal Grandmother Social History Tobacco Use Smoking Status Never Smokeless Tobacco Never Physical Exam - General appearance, mentation, extraocular movements, facial strength and movement, hearing, upper and lower extremity strength and tone, sensation to gross testing, coordination, and gait are normal or at baseline unless noted below. Physical Exam Constitutional: Appearance: Normal appearance. Genitourinary: Right Labia: No rash or lesions. Left Labia: No lesions or rash. No vaginal discharge or erythema. No vaginal prolapse present. No vaginal atrophy present. Right Adnexa: not tender and no mass present. Left Adnexa: not tender and no mass present. No cervical lesion. Uterus is not tender. Uterus is anteverted. Breasts: Right: Normal. No mass or nipple discharge. Left: Normal. No mass or nipple discharge. HENT: Head: Normocephalic and atraumatic. Cardiovascular: Rate and Rhythm: Normal rate and regular rhythm. Pulmonary: Breath sounds: Normal breath sounds. Abdominal: General: There is no distension. Palpations: Abdomen is soft. There is no mass. Tenderness: There is no abdominal tenderness. Musculoskeletal: General: Normal range of motion. Cervical back: Neck supple. Lymphadenopathy: Cervical: No cervical adenopathy. Neurological: Mental Status: She is alert and oriented to person, place, and time. Skin: General: Skin is warm and dry. Psychiatric: Mood and Affect: Mood normal. Assessment/Plan ICD-10-CM 1. Encounter for screening mammogram for malignant neoplasm of breast Z12.31 2. Screening for malignant neoplasm of cervix Z12.4 3. Encounter for gynecological examination without abnormal finding Z01.419 Juliana was seen today for gynecologic exam. Diagnoses and all orders for this visit: Encounter for screening mammogram for malignant neoplasm of breast Screening for malignant neoplasm of cervix Encounter for gynecological examination without abnormal finding Pap and exam performed. Mammogram ordered Results can be found in MyChart in 7 days Breast MRI order placed for [facility] documented in this encounter [facility] 12-10-2023 Telephone encounter Note Paxil sent in for patient. [facility] 12-10-2023 Miscellaneous Notes Paxil sent in for patient. Pt stated she only used this for Three weeks , she had a very loud roaring in her ears ,stated she had the same problem the last time she tried this a few years ago Pt lm on vm stating she discontinued celexa due to side effects, but she is wondering if there is something similar that could be sent in for her please advise documented in this encounter [facility] 12-10-2023 Telephone encounter Note Pt stated she only used this for Three weeks , she had a very loud roaring in her ears ,stated she had the same problem the last time she tried this a few years ago [facility] 12-10-2023 Telephone encounter Note Pt lm on vm stating she discontinued celexa due to side effects, but she is wondering if there is something similar that could be sent in for her please advise [facility] Evaluation note Diagnosis Onset Date Malignant melanoma in situ a [facility] Work Phone: Evaluation note* Diagnosis Family history of breast cancer- Primary Family history of malignant neoplasm of breast Encounter for screening mammogram for malignant neoplasm of breast Screening for malignant neoplasm of cervix Screening for malignant neoplasm of the cervix Encounter for gynecological examination without abnormal finding Dense breasts Inconclusive mammogram Fibrocystic breast changes of both breasts documented in this encounter [facility]* Diagnosis Benign essential hypertension (CMS/HCC)- Primary Essential hypertension, benign Morbid obesity (CMS/HCC) Morbid obesity Acquired hypothyroidism (CMS/HCC) Unspecified hypothyroidism Anxiety about health JAIDEN (obstructive sleep apnea) Obstructive sleep apnea (adult) (pediatric) Generalized edema Edema Palpitations documented in [facility]* Diagnosis Acute non-recurrent frontal sinusitis- Primary Acute bronchitis, unspecified organism documented in this [facility]* Diagnosis Paroxysmal atrial fibrillation (CMS/HCC)- Primary Atrial fibrillation ESS (euthyroid sick syndrome) Euthyroid sick syndrome Acquired hypothyroidism (CMS/HCC) Unspecified hypothyroidism Generalized edema Edema documented [facility]* Diagnosis Anxiety about health- Primary documented in this [facility]* Diagnosis Acute non-recurrent frontal sinusitis- Primary Fever and chills Fever, unspecified Vaginal yeast infection Candidiasis of vulva and vagina documented in this [facility]* Diagnosis Hypothyroidism, unspecified type- Primary Elevated TSH Nonspecific abnormal results of thyroid function study Atrial fibrillation, unspecified type (HCC) Abnormal weight gain Obstructive sleep apnea Obstructive sleep apnea (adult) (pediatric) Fatigue, unspecified type [facility] Author Fransico ChavezJer[facility] September 17, 2023 11:03am Note Date/Time September 17, 2023 9:54a [facility] [place] [address] Cancer Center Note Signed Patient: Juliana Neville MR#: [id number] : 1965 Acct:[id number] Age/Sex: 57 / F Type: REG AMB Date of Service: 09/17/23 Copies to: MD Shanta Gamboa II, MD~ Assessment & Plan A/P (1) Malignant melanoma in situ: Plan At this point patient had 1 cm hyperpigmented macule on the right superior cheekjust below her right eyelid. Patient status post shave skin biopsy done on 08/14/2023 by her director data management which revealed malignant melanoma in situ with positive margins laterally and positive deep margin. Patient will need wide local excision or further excision at least to achieve free margins of her melanoma in situ. Also to make sure there is no invasive melanoma. Therefore we will refer her to plastic surgeon Dr. Anne and have her come back after her surgery to us to discuss surgical path findings and further recommendation. In the event that with her back that she has invasive melanoma then she needs BRAF testing, CT of the neck soft tissue and consideration radiation oncology consult for local treatment if needed. Orders: Referrals Referral to Plastic and Reconstructive Surgery C43.9 - Malignant melanoma of skin, unspecified Patient Instructions: refer to Dr Anne for wide local excision se back after surgery CHEMO PLAN No Active Chemotherapy History of Present Illness HPI MRI is 57-year-old nice lady who has a history of psoriasis and actinic skin changes for many years who has been using triamcinolone only lately for her psoriasis and who previously failed methotrexate treating her psoriasis, was referred to our medical oncology office for new findings of malignant melanoma in situ on the right cheek face. She stated that she had hyperpigmented actinicspot on the right cheek for many years but lately for the last several months has changed its color to became darker and therefore she underwent a biopsy by her director data management on 08/14/2023 which revealed malignant melanoma in situ, lentigomaligna type, in the right superior medial malar cheek. This is done by shave biopsy on 08/14/2023. The margins where clear except it was noted that malignant melanoma in situ extends to the lateral specimen margin and also deep margin is focally involved via adnexal extension. Pathologic stage is pTis melanoma in situ. Size of the hyperpigmented macule was 1 cm. Patient is considering using Skyrizi also for her psoriasis but has not started it yet. She came in on 09/17/2023 for initial consultation to medical oncology for our opinion regarding that malignant melanoma in situ found on shave biopsy done on 08/14/2023 by her director data management Dr. Shanta Brandon. 14 point systems were reviewed and are negative otherwise. Intake Vitals/Pain Assessment 09/17/23 09:58 Height 5 ft 4 in Weight 128 kg BMI 48.4 Body Fat % 65.62 BP 173/84 H Blood Pressure Location Rt brachial Position Sitting Temp 98.0 F Temp Source Temporal Pulse 87 Pulse Source NIBP Respiration 20 Pulse Oximetry (%) 98 Oxygen Delivery Method room air Are you having pain? No Intake Visit Reasons: New pt Melanoma Accompanied by: Spouse Allergies No Known Allergies Allergy (Verified 09/16/23 10:13) - Last Reconciled 09/17/23 by Maryjo Nunez berberine chloride 500 mg PO BID levothyroxine 150 mcg PO DAILY losartan 100 mg PO DAILY sennosides (senna) 8.6 mg PO BID triamterene-hydrochlorothiazid 37.5-25 mg 1 tab PO QAM vitamin D3-vitamin K2 1,250-200 mcg 1 cap PO DAILY Gastrointestinal Is the patient taking opioids for pain control?: No Bowel Protocol for Opioids Given: No Bowel Pattern: Constipated Bowel Movement Aid(s): Laxative Falls Fall Precaution Measures Taken: Patient in chair Nurse's Note: Patient is referred by Dr Shanta Brandon for melanoma. [facility] Medical History Medical History (Updated 09/17/23 @ 11:01 by Fransico Campos MD) Malignant melanoma in situ Vaginal mass removed in 2004, non cancerous Psoriasis IBS (irritable bowel syndrome) Hypothyroidism Hypertension Surgical History Surgical History (Updated 09/17/23 @ 10:02 by Maryjo Nunez) H/O melanoma excision History of left leg 2016 Family History Family History (Updated 09/17/23 @ 10:04 by Maryjo Nunez) Father Hypertension Mother Hypertension Maternal Grandmother Breast cancer Social History Social History (Updated 09/17/23 @ 10:04 by Maryjo Nunez) Smoking status: Former smoker What tobacco products do you use: cigarettes Smoking quit date/years: >15 years ago Within the past year, how often did you have a drink containing alcohol: never AUDIT-C Alcohol total score: 0 AUDIT-C Alcohol score interpretation: A score less than 3 is consistent with normal alcohol consumption. In the past 12 months, have you used illegal drugs or prescription drugs for non-medical reasons?: No Review of Systems ROS Details: All systems reviewed & no additional complaints except as documented General: Patient denied fevers, chills, rigors, weight loss or loss of appetite. Head: Patient denied any headaches or vision changes Thoracic: Patient denied any shortness of breath or cough or hemoptysis Cardiovascular patient denies any chest pain or leg edema GI: Patient denies any nausea vomiting rectal bleed diarrhea : Patient denied gross hematuria. Hematology: Patient denied any bleeding from any source. No easy bruising. Lymphatic: No enlarged LAP anywhere. Skin: Normal skin exam no rashes or suspicious lesions. Neurological patient denies any headache or dizziness or focal weakness or sensory changes. Physical Exam EXAM ECOG performance status 1 HEENT normocephalic atraumatic pupils are equal and round Neck supple without thyromegaly or any cervical lymphadenopathy. Chest clear to auscultation bilaterally without wheezing crackles or rhonchi Heart regular rate and rhythm S1-S2 without murmurs gallop or rub Abdomen soft nontender not distended without hepatosplenomegaly or masses clinically Extremities no edema of the lower extremities Skin without any suspicious rashes Lymphatic system no lymphadenopathy in the cervical area axillary areas or inguinal areas bilaterally Neurological exam patient is cooperative alert and oriented x3 no focal deficits. Results - [facility] (Med Onc) LAB RESULTS No Data to Display Dictated By: Fransico Campos MD DD/ [id number] Signed By: <Electronically signed by Fransico Campos MD> 09/17/23 1103 [facility] Work Phone: Summary Purpose Family History No Family History Records Found Relationship Condition Age at Onset Recorded Date/T annie father Hypertension Unknown Not Specified Hypertension Unknown Not Specified Malignant neoplasm of breast Unknown Advance Directives No Advanced Directives Records Found Advance Directive Response Recorded Date/ Time Advance Directives No February 18, 2019 11:09am Chief Complaint and Reason for Visit Chief Complaint Melanoma New pt Melanoma Reason for Visit Malignant melanoma i n situ Additional Source Comments INFORMATION SOURCE (unrecogn ized section and content) DATE CREATED AUTHOR 07/04/2021 [facility] DATE CREATED AUTHOR AUTHOR'S ORGANIZ ATION [facility]/2022 [facility] DATE CREATED AUTHOR AUTHOR'S ORGANIZ ATION 10/10/2023 [facility] DATE CREATED AUTHOR AUTHOR'S ORGANIZ ATION 10/12/2023 [facility] DATE CREATED AUTHOR AUTHOR'S ORGANIZ ATION 04/27/2024 [facility] EPIC DATE CREATED AUTHOR AUTHOR'S ORGANIZ ATION 05/19/2024 [facility] DATE CREATED AUTHOR AUTHOR'S ORGANIZ ATION 05/22/2024 [facility] DATE CREATED AUTHOR AUTHOR'S ORGANIZ ATION 05/24/2024 [facility] Care Teams (unrecognized sec tion and content) Team Status: Active Member Role Status Dates Bang Aviles II MD Primary Care Provider Active Team Status: Active Member Role Status Dates Bang Aviles II MD Primary Care Provider Active Start: September 17, 2023 Fransico Campos MD Attending Provider Active Start: September 17, 2023 Team Status: Inactive Member Role Status Dates Fransico Campos MD Attending Provider Active Start: September 17, 2023 End: September 17, 2023 Bang Aviles II MD Primary Care Provider Active Start: September 17, 2023 End: September 17, 2023 Shanta Brandon MD Referring Provider Active Start: September 17, 2023 End: September 17, 2023 Team Status: Inactive Member Role Status Dates Bang Aviles II MD Primary Care Provider Active Start: September 30, 2023 End: September 30, 2023 Taco Anne MD Attending Provider Active Start: September 30, 2023 End: September 30, 2023 Cutter Operator Tile Relationship Specialty Start Date End Date Bang Aviles MD [address] [facility] [address] [place] [address] PCP - General Internal Medicine 08/20/22 Cutter Operator Tile Relationship Specialty Start Date End Date Bang Aviles MD [address] [facility] [address] [place] [address] PCP - General Internal Medicine 08/20/22 Cutter Operator Tile Relationship Specialty Start Date End Date Bang Aviles MD [address] [address] [place] [address] PCP - General Internal Medicine 08/20/22 Cutter Operator Tile Relationship Specialty Start Date End Date Bang Aviles MD [address] [address] [place] [address] PCP - General Internal Medicine 08/20/22 Cutter Operator Tile Relationship Specialty Start Date End Date Bang Aviles MD [address] [place] [address] PCP - General Internal Medicine 08/20/22 Cutter Operator Tile Relationship Specialty Start Date End Date Bang Aviles MD [address] [place] [address] PCP - General Internal Medicine 08/20/22 Cutter Operator Tile Relationship Specialty Start Date End Date Bang Aviles MD [address] [place] [address] PCP - General Internal Medicine 08/20/22 Cutter Operator Tile Relationship Specialty Start Date End Date Bang Aviles MD [address] [facility] [address] [place] [address] PCP - General Internal Medicine 08/20/22 Cutter Operator Tile Relationship Specialty Start Date End Date Bang Aviles II, MD [address] [facility] [address] [place] [address] PCP - General Internal Medicine 02/05/24 Goals (unrecognized section and content) Goals may be documented in a n alternate sectionGoals may be documented in an alternate section Reason for Visit (unrecogniz ed section and content) Reason Comments Gynecologic Exam Reason Comments Heart Problem She has been having a fluttering sensation in her heart and she has no idea how long it's been going on for but just recently started paying attention to it. Feels like she misses a heart beat ever 12-15 beats. Feels like she needs to cough when it happens. Depression She was wanting to d iscuss the Wellbutrin with you today. States she was on Celexa and Paxil and both caused her to have a roaring in my ears . Lab Orders Would like a lab for her thyroid levels to be tested. Reason Comments Consult New patient Source Comments (unrecognize d section and content) In the event this informatio n is protected by the Federal Confidentiality of Alcohol and Drug Abuse Patient Records regulations: The Federal rules restrict any use of the information to criminally investigate or prosecute any alcohol or drug abuse patient.[facility] FOR RECORDS PERTAINING TO PATIENTS WHO ARE OR HAVE BEEN ENROLLED IN A CHEMICAL DEPENDENCY/SUBSTANCEABUSE PROGRAM, SOME INFORMATION MAY BE OMITTED. This clinical summary was aggregated from multiple sources. Caution should be exercised in using it in the provision of clinical care. This summary normalizes information from multiple sources, and as a consequence, information in this document may materially change the coding, format and clinical context of patient data. In addition, data may be omitted in some cases. CLINICAL DECISIONS SHOULD BE BASED ON THE PRIMARY CLINICAL RECORDS. [facility] [employer] [facility]. provides no warranty or guarantee of the accuracy or completeness of information in this document.
== END 2024-06-09 07:58 | disposition home or self-care (01) ==
LOC: CARD 07:57
PROVIDERS: PCP Internal Medicine; Visit Provider Internal Medicine Cardiovascular Disease
DX: R60.0 Localized edema (principal); I11.9 Hypertensive heart disease without heart failure
CPT/HCPCS: 93306

== ENCOUNTER 2024-06-22 20:02 | Outpatient (OUT) | payer OTHER, SELFPAY ==
--- OUTSIDE RECORDS SUMMARY | 2024-06-22 20:04 | XMS_ITS | CCD ---
Author Organization [facility] Inform ion [facility] Care Team Providers Care Hydro Sprayer Operator Name Role Phone DR BANG AVILES Attending Unavailable STEFAN, DR PARIS Consulting Unavailable DR BANG AVILES Primary Care Unavailable DR BANG AVILES Admitting Unavailable ODILON Aviles Primary Care Provider MD Fransico Campos Attending Provider MD Taco Anne Attending Provider Taco Anne Admitting Unavailable Taco Anne Attending Unavailable Bang Aviles Primary Care Unavailable Bang Aviles Primary Care Unavailable Fransico Campos Admitting Fransico Rutherford Attending Bang Isaac MD Primary Care Provider ALBA DONOVAN Attending Unavailable ALBA DONOVAN Attending Unavailable WALDO ALEXANDER Attending Unavailable ALBA DONOVAN Attending Unavailable ALBA DONOVAN Attending Unavailable SHERRIE CAZARES Attending Unavailable Stefan DONALD MD, Daniel B Primary Care Provider [phone] SELF Referring Unavailable NAINA THORNTON Attending BANG Carrasco II Primary Care Unavailable ZHANNA JUNG Attending Unavailable RAE SIMON Attending Unavailable Allergies Allergy Classification Reported Allergen(s) Allergy Type Date of Onset Reaction(s) Facility (13 sources) Citalopram Drug Allergy 4 Other, Other: [...] 03/04/2016 Active ALPRAZolam 2 mg oral tablet (9 sources) Benzodiazepine Start: 02-17-2024 take 1 tablet [...] day. Active atenolol 25 mg oral tablet (5 sources) beta-Adrenergic Dee Dee Start: 03-22-2024 take 1 tablet by mouth once daily atenolol (Tenormin) 25 MG tablet Indications: Paroxysmal atrial fibrillation (CMS/HCC) Take 1 tablet (25 mg) by mouth Daily 30 tablet 2 03/22/2024 Active Berberine (12 sources) BERBERINE Active Berberine Chloride (2 sources) Start: 09-17-2023 take 500 mg by mouth twice daily Berberine Chloride Active 500 MG PO Twice daily September 17, 2023 12:00am 12 hr buPROPion hydrochloride 100 mg extended release oral tablet (9 sources) Aminoketone Start: 04-19-2024 take 1 tablet by mouth once daily buPROPion SR (Wellbutrin SR) 100 MG 12 hr tablet Indications: Anxiety about health TAKE 1 TABLET (100 MG) BY MOUTH DAILY DO NOT CRUSH, CHEW, OR SPLIT. 30 tablet 1 04/19/2024 Active Start: 02-16-2024 take 1 tablet by preeti th once daily buPROPion SR (Wellbutrin SR) 100 MG 12 hr tablet Indications: Anxiety about health Take 1 tablet (100 mg) by mouth Daily Do not crush, chew, or split. 30 tablet 1 02/16/2024 Active dextromethorphan hydrobromide 15 mg / guaiFENesin 400 mg / pseudoephedrine hydrochloride 60 mg oral tablet (4 sources) alpha-Adrenergic Agonist, Uncompetitive W-wykwvv-O-aspartate Receptor Antagonist, Sigma-1 Agonist Start: 03-18-2024 End: [...] Active docusate sodium 50 mg / sennosides, jail 8.6 mg oral tablet (12 sources) take 1 tablet by mouth once [...] Active fluocinolone acetonide 0.1 mg/ml topical oil (6 sources) Corticosteroid Start: 02-23-2024 fluocinolone ([place]) 0.01 % external oil APPLY TO AFFECTED AREAS ON TRUNK AND AND EXTREMITIES ONCE DAILY. 02/23/2024 Active hydroCHLOROthiazide 12.5 mg oral capsule (1 source) Thiazide Diuretic take 1 capsule by mouth once daily hydroCHLOROthiazide 12.5 mg capsule Take 12.5 mg by mouth once daily. Active hydroCHLOROthiazide 25 mg / triamterene 37.5 mg oral tablet (17 sources) Potassium-sparing Diuretic, Thiazide Diuretic Start: 04-20-2024 [...] MORNING 30 tablet 01/28/2024 02/16/2024 Discontinued Start: 09-16-2023 take 1 tablet by preeti th once daily in the morning triamterene-hydrochlorothiazide (Maxzide -25) 37.5-25 MG tablet Indications: Hypertension, unspecified type (CMS/HCC) TAKE 1 TABLET BY MOUTH EVERY DAY IN THE MORNING 30 tablet 11/27/2023 Active levothyroxine sodium 0.175 mg oral tablet (16 sources) l-Thyroxine Start: 05-24-2024 take 1 tablet by mouth in the morning levothyroxine (Synthroid, Levoxyl) 175 MCG tablet Indications: Hypothyroidism, unspecified (CMS/HCC) Take 1 tablet (175 mcg) by mouth in the morning. 05/24/2024 Active Start: 05-20-2024 take 1 tablet by preeti th once daily levothyroxine (SYNTHROID) 175 mcg tablet Take 1 tablet by mouth once daily. 90 tablet 1 05/20/2024 Active Start: 2023 End: 05-20-2024 levothyroxine (SYNTHROID) 15 0 mcg tablet Take 150 mcg by mouth. 2023 05/20/2024 Discontinued Start: 09-16-2023 take 150 ug by mouth once daily Levothyroxine Active 150 MCG PO Daily September 16, 2023 12:00am losartan potassium 100 mg oral tablet (15 sources) Angiotensin 2 Receptor Dee Dee Start: 04-26-2024 take 1 tablet by mouth once daily losartan (Cozaar) 100 MG tablet Indications: Essential (primary) hypertension (CMS/HCC) TAKE 1 TABLET BY MOUTH DAILY 90 tablet 2 04/26/2024 Active Start: 04-30-2023 take 1 tablet by preeti th once daily losartan (Cozaar) 100 MG tablet Indications: Essential (primary) hypertension (CMS/HCC) TAKE 1 TABLET BY MOUTH ONCE DAILY 90 tablet 3 04/30/2023 Active rivaroxaban 20 mg oral tablet (4 sources) Factor Xa Inhibitor Start: 03-22-2024 take [...] September 17, 2023 12:00am VITAMIN D PO (12 sources) take 1 tablet by mouth once daily VITAMIN D PO Take 1 tablet by mouth Daily Active Vitamin D3-Vitamin K2 (2 sources) Start: 09-17-2023 take 1 capsule by mouth once daily Vitamin D3-Vitamin K2 Active 1 CAP PO Daily September 17, 2023 12:00am Vtama 1 % cream (6 sources) Start: 02-25-2024 Vtama 1 % crea m 02/25/2024 Active VTAMA 1 % cream (1 source) Start: 02-25-2024 VTAMA 1 % crea m 02/25/2024 Active Completed/Discontinued Medications Medication Drug Class(es) [...] [Acute bronchitis, unspecified] 03-18-2024 Episodic Cardiac dysrhythmias (9 sources) Paroxysmal atrial fibrillation; Translations: [Paroxysmal atrial fibrillation] Onset: 03-22-2024 03-22-2024 Chronic Cardiac dysrhythmias (4 sources) Palpitations; Translations: [Palpitations] 02-16-2024 Episodic Deficiency and other anemia (12 sources) Anemia of chronic disease; Translations: [Anemia in other chronic diseases classified elsewhere] Onset: 10-06-2023 10-06-2023 Chronic Essential hypertension (20 sources) Benign essential hypertension; Translations: [Essential (primary) hypertension] Onset: 10-06-2023 Resolved: 10-06-2023 10-06-2023 Chronic Fever of unknown origin (2 sources) Fever with chills; Translations: [Fever, unspecified] 04-21-2024 Episodic Genitourinary symptoms and ill-defined conditions (12 sources) Female stress incontinence; Translations: [Stress incontinence (female) (male)] Onset: 10-06-2023 10-06-2023 Chronic Hypertension with complications and secondary hypertension (2 sources) Hypertensive heart disease without heart failure; Translations: [Hypertensive heart disease without heart failure] Onset: 05-17-2024 Chronic Malaise and fatigue (12 sources) Fatigue; Translations: [Chronic fatigue, unspecified] Onset: 10-06-2023 10-06-2023 Chronic Malaise and fatigue (1 source) Fatigue; Translations: [Other fatigue] 05-20-2024 Episodic Melanomas of skin (20 sources) Melanoma in situ, unspecified; Translations: [Melanoma in situ] Onset: 02-15-2016 09-17-2023 Chronic Menopausal disorders (16 sources) Menopausal and female climacteric states; Translations: [Menopausal flushing] Onset: 02-08-2022 Chronic Menstrual disorders (12 sources) Irregular periods; Translations: [Irregular menstruation, unspecified] Onset: 10-06-2023 10-06-2023 Chronic Mycoses (2 sources) Candidiasis of vagina; Translations: [Vaginal yeast infection] 04-21-2024 Episodic Nonmalignant breast conditions (2 sources) Fibrocystic changes of bilateral breasts; Translations: [Diffuse cystic mastopathy of right breast] 01-27-2024 Chronic Nonmalignant breast conditions (1 source) Breast finding ; Translations: [Dense breasts] 01-27-2024 Episodic Osteoarthritis (12 sources) Osteoarthritis; Translations: [Unspecified osteoarthritis, unspecified site] Onset: 10-06-2023 10-06-2023 Chronic Other inflammatory condition of skin (12 sources) Guttate psoriasis; 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] Onset: 10-06-2023 10-06-2023 Chronic Other nutritional; endocrine; and metabolic disorders (12 sources) Insulin resistance; Translations: [Insulin resistance] Onset: 10-06-2023 10-06-2023 Chronic Other nutritional; endocrine; and metabolic disorders (15 sources) Morbid obesity; Translations: [Morbid (severe) obesity due to excess calories] Onset: 10-06-2023 10-06-2023 Chronic Other nutritional; endocrine; and metabolic disorders (1 source) Abnormal weight gain; Translations: [Abnormal weight gain] 05-20-2024 Episodic Other screening for suspected conditions (not mental disorders or infectious disease) (3 sources) Patient encounter status; Translations: [Encounter for screening mammogram for malignant neoplasm of breast] 01-27-2024 Episodic Residual codes; unclassified (15 sources) Obstructive sleep apnea syndrome; Translations: [Obstructive sleep apnea (adult) (pediatric)] Onset: 10-06-2023 10-06-2023 Chronic Residual codes; unclassified (2 sources) Family history of breast cancer; Translations: [Family history of malignant neoplasm of breast] 01-27-2024 Episodic Residual codes; unclassified (2 sources) Localized edema; Translations: [Localized edema] Onset: 05-17-2024 Episodic Systemic lupus erythematosus and connective tissue disorders (12 sources) Connective tissue disease overlap syndrome; Translations: [Other overlap syndromes] Onset: 10-06-2023 10-06-2023 Chronic Thyroid disorders (17 sources) Hypothyroidism, unspecified; Translations: [Acquired hypothyroidism] Onset: 02-10-2022 10-06-2023 Chronic Past or Other Problems Problem Classification Problem Date Documented Da te Episodic/Chronic Hemorrhoids (12 sources) Internal hemorrhoids; Translations: [Other hemorrhoids] Onset: 10-06-2023 10-06-2023 Episodic Miscellaneous mental health disorders (15 sources) Anxiety about body function or health; Translations: [Other symptoms and signs involving emotional state] Onset: 10-21-2023 10-21-2023 Episodic Other and unspecified benign neoplasm (13 sources) Dysplastic nevus of skin; Translations: [Melanocytic nevi of unspecified lower limb, including hip] Onset: 03-25-2016 10-06-2023 Episodic Other diseases of bladder and urethra (13 sources) Disorder of urethra; Translations: [Other specified disorders of urethra] Onset: 06-20-2006 10-06-2023 Episodic Other upper respiratory infections (10 sources) Acute frontal sinusitis; Translations: [Acute frontal sinusitis, unspecified] Onset: 03-18-2024 Resolved: 03-18-2024 03-18-2024 Episodic Residual codes; unclassified (12 sources) Edema, generalized; Translations: [Generalized edema] Onset: 02-16-2024 02-16-2024 Episodic Thyroid disorders (13 sources) Sick-euthyroid syndrome; Translations: [Sick-euthyroid syndrome] Onset: 10-06-2023 10-06-2023 Episodic Unclassified (1 source) Breast finding 01-27-2024 Results Test Name Value Interpretation Reference Range Facil ity 36on 06-14-2024 36 Patient called back and said she took the diuretic for about 1.5 weeks because it didn't do anything for her. She said she thinks her thyroid medication adjustment has helped her a lot. [facility] 36on 06-10-2024 36 LM for patient to let her know echo performed yesterday was normal. I asked her to return my call to give me an update on the LE edema s/p addition of hydrochlorothiazide. [facility] Telephoneon 06-10-2024 Telephone [id number] Juliana Neville 1965 F Date Provider Department Center 06/10/2024 AmeeALDEN THOMAS [facility] Family History Problem Relation Age of Onset No Known Problems Mother Valvular heart disease Father Atrial fibrillation Father Family Status - Relation Status Age at Mother Father [facility] CA ECHO DOPPLER COMPLETEon 0 06-09-2024 [place] [address] Cardiology Report Signed Patient: JULIANA NEVILLE MR#: [id number] : 1965 Acct:[id number] Age/Sex: 58 / F ADM Date: 06/09/24 Loc: CARD Attending Dr: ZHANNA JUNG Ordering Physician: ZHANNA JUNG Date of Service: 06/09/24 Procedure(s): CA echo doppler complete Accession Number(s): [id number] cc: ZHANNA JUNG; BANG AVILES Patient Name: JULIANA NEVILLE MR#: [id number] : 1965 Exam Date: 06/09/2024 Ordering Doctor: ZHANNA JUNG M.D. ECHOCARDIOGRAM REPORT PROCEDURE: CA ECHO DOPPLER COMPLETE INDICATIONS: Lower extremity edema, hypertension COMPARISON: None. DESCRIPTION: COMPLETE ECHOCARDIOGRAM Real-time transthoracic echocardiography with 2D, M-mode, spectral and color flow Doppler performed. QUALITY: Technical quality was good. LEFT VENTRICLE: Normal chamber size. Borderline left ventricular hypertrophy. Global left ventricular systolic function is normal. LV EF: Visual estimation of left ventricular ejection fraction is 65%. DIASTOLIC: Normal diastolic function. ATRIAL SEPTUM: LEFT ATRIUM: Mild dilatation. RIGHT ATRIUM: Normal chamber size. RIGHT VENTRICLE: Normal chamber size. Normal right ventricular systolic function. TRICUSPID VALVE: Normal mobility and thickness. No stenosis with trivial regurgitation. No evidence of pulmonary hypertension. RVSP 16 mmHg MITRAL VALVE: Normal mobility and thickness. No evidence of mitral valve stenosis. There is no mitral annular calcification. No mitral regurgitation. AORTIC VALVE: Normal trileaflet appearance. No visible sclerosis. Normal leaflet mobility. No evidence of aortic valve stenosis. No aortic regurgitation. AORTIC ROOT: Normal diameter and appearance. PULMONIC VALVE: Normal thickness and mobility. No stenosis. Trivial regurgitation. PERICARDIUM: No evidence of pericardial effusion. IVC: Collapses with inspirations. Normal size. PLEURA: CONCLUSION: 1. Borderline left ventricular hypertrophy with normal systolic function. Estimated LVEF is 65%. 2. Normal right ventricular size and systolic function. 3. Mild left atrial dilatation. 4. Normal diastolic function. 5. No significant valvular dysfunction. 6. Normal right-sided pressures. 7. No pericardial effusion. Adult Echocardiography Procedure Report Left Ventricle LVEDD (3.7 - 5.6 cm): 5.51 cm LVESD (2.2 - 4.0 cm): 3.73 cm LVIVS thickness (0.6 - 1.2 cm): 1.10 cm LVPW thickness (0.5 - 1.0 cm): 0.77 cm e': 0.12 m/s E - e': 6.54 LVOT Max Gradient: 2.70 mm[Hg] LVOT Area (cm2): 0.82 m/s Peak Velocity (LVOT): 0.82 m/s Mean Velocity (LVOT): 0.49 m/s LVOT Diameter 2.11 cm Left Ventricular Ejection Fraction: 65 % Left Atrium LA Volume Index (2D A2C): 40.64 ml/m2 Left Atrium Systolic Dimension: 4.35 cm Mitral Valve MV E to A Ratio: 1.23 Mitral Valve A-Wave Peak Velocity: 0.63 m/s Mitral Valve E-Wave Peak Velocity: 0.78 m/s Right Ventricle RV Internal Diastolic Dimension: 3.32 cm Aorta AO Root Diam: 3.11 cm Ascending Ao Diam: 3.45 cm Aortic Valve AoV Area (Peak Raymundo): 2.55 cm2, 2.55 cm2 AoV Area (VTI): 2.46 cm2, 2.46 cm2 Peak Velocity(Antegrade Flow): 1.12 m/s Peak Gradient(Antegrade Flow): 5.05 mm[Hg] Mean Velocity(Antegrade Flow): 0.75 m/s Mean Gradient(Antegrade Flow): 2.62 mm[Hg] Velocity Time Integral: 28.26 cm Tricuspid Valve Peak Velocity (Regurgitant Flow): 1.51 m/s, 1.77 m/s Pulmonic Valve Mean Gradient: 2.16 mm[Hg], 2.45 mm[Hg] Mean Velocity: 0.69 m/s, 0.73 m/s Peak Velocity: 1.03 m/s Peak Gradient: 3.98 mm[Hg], 4.51 mm[Hg] Right Atrium Right Atrium Systolic Pressure: 43.66 ml, 43.66 ml Dictated by: Kilo Bautista M.D. on 06/09/2024 at 13:18 Approved by: Kilo Bautista M.D. on 06/09/2024 at 13:21 (more content not included)... [facility] Radiology, Radiologist, - 06/09/2024 [place] [address] Cardiology Report Signed Patient: JULIANA NEVILLE MR#: [id number] : 1965 Acct:[id number] Age/Sex: 58 / F ADM Date: 06/09/24 Loc: CARD Attending Dr: ZHANNA JUNG Ordering Physician: ZHANNA JUNG Date of Service: 06/09/24 Procedure(s): CA echo doppler complete Accession Number(s): [id number] cc: ZHANNA JUNG; BANG AVILES Patient Name: JULIANA NEVILLE MR#: [id number] : 1965 Exam Date: 06/09/2024 Ordering Doctor: ZHANNA JUNG M.D. ECHOCARDIOGRAM REPORT PROCEDURE: CA ECHO DOPPLER COMPLETE INDICATIONS: Lower extremity edema, hypertension COMPARISON: None. DESCRIPTION: COMPLETE ECHOCARDIOGRAM Real-time transthoracic echocardiography with 2D, M-mode, spectral and color flow Doppler performed. QUALITY: Technical quality was good. LEFT VENTRICLE: Normal chamber size. Borderline left ventricular hypertrophy. Global left ventricular systolic function is normal. LV EF: Visual estimation of left ventricular ejection fraction is 65%. DIASTOLIC: Normal diastolic function. ATRIAL SEPTUM: LEFT ATRIUM: Mild dilatation. RIGHT ATRIUM: Normal chamber size. RIGHT VENTRICLE: Normal chamber size. Normal right ventricular systolic function. TRICUSPID VALVE: Normal mobility and thickness. No stenosis with trivial regurgitation. No evidence of pulmonary hypertension. RVSP 16 mmHg MITRAL VALVE: Normal mobility and thickness. No evidence of mitral valve stenosis. There is no mitral annular calcification. No mitral regurgitation. AORTIC VALVE: Normal trileaflet appearance. No visible sclerosis. Normal leaflet mobility. No evidence of aortic valve stenosis. No aortic regurgitation. AORTIC ROOT: Normal diameter and appearance. PULMONIC VALVE: Normal thickness and mobility. No stenosis. Trivial regurgitation. PERICARDIUM: No evidence of pericardial effusion. IVC: Collapses with inspirations. Normal size. PLEURA: CONCLUSION: 1. Borderline left ventricular hypertrophy with normal systolic function. Estimated LVEF is 65%. 2. Normal right ventricular size and systolic function. 3. Mild left atrial dilatation. 4. Normal diastolic function. 5. No significant valvular dysfunction. 6. Normal right-sided pressures. 7. No pericardial effusion. Adult Echocardiography Procedure Report Left Ventricle LVEDD (3.7 - 5.6 cm): 5.51 cm LVESD (2.2 - 4.0 cm): 3.73 cm LVIVS thickness (0.6 - 1.2 cm): 1.10 cm LVPW thickness (0.5 - 1.0 cm): 0.77 cm e': 0.12 m/s E - e': 6.54 LVOT Max Gradient: 2.70 mm[Hg] LVOT Area (cm2): 0.82 m/s Peak Velocity (LVOT): 0.82 m/s Mean Velocity (LVOT): 0.49 m/s LVOT Diameter 2.11 cm Left Ventricular Ejection Fraction: 65 % Left Atrium LA Volume Index (2D A2C): 40.64 ml/m2 Left Atrium Systolic Dimension: 4.35 cm Mitral Valve MV E to A Ratio: 1.23 Mitral Valve A-Wave Peak Velocity: 0.63 m/s Mitral Valve E-Wave Peak Velocity: 0.78 m/s Right Ventricle RV Internal Diastolic Dimension: 3.32 cm Aorta AO Root Diam: 3.11 cm Ascending Ao Diam: 3.45 cm Aortic Valve AoV Area (Peak Raymundo): 2.55 cm2, 2.55 cm2 AoV Area (VTI): 2.46 cm2, 2.46 cm2 Peak Velocity(Antegrade Flow): 1.12 m/s Peak Gradient(Antegrade Flow): 5.05 mm[Hg] Mean Velocity(Antegrade Flow): 0.75 m/s Mean Gradient(Antegrade Flow): 2.62 mm[Hg] Velocity Time Integral: 28.26 cm Tricuspid Valve Peak Velocity (Regurgitant Flow): 1.51 m/s, 1.77 m/s Pulmonic Valve Mean Gradient: 2.16 mm[Hg], 2.45 mm[Hg] Mean Velocity: 0.69 m/s, 0.73 m/s Peak Velocity: 1.03 m/s Peak Gradient: 3.98 mm[Hg], 4.51 mm[Hg] Right Atrium Right Atrium Systolic Pressure: 43.66 ml, 43.66 ml Dictated by: Kilo Bautista M.D. on 06/09/2024 at 13:18 Approved by: Kilo Bautista M.D. on 06/09/2024 at 13:21 Dictated By: KILO BAUTISTA Signed By: 06/09/24 1322 DD/ 1321 TD/TT: [facility] Boss: [facility] Radiology Study observation (narrative) [facility] CA ECHO DOPPLER COMPLETEOrde red By: Radiologist Radiology on 06-09-2024 [facility] [employer] Work Phone: Orders Onlyon 06-08-2024 Orders Only [id number] Juliana Neville 1965 F Date Provider Department Center 06/08/2024 [facility]-AGATHA PASCUAL CARD [facility] Family History Problem Relation Age of Onset No Known Problems Mother Valvular heart disease Father Atrial fibrillation Father Family Status - Relation Status Age at Mother Father Normal [facility] CNOVon 05-20-2024 CNOV Office Visit (ENDMED) JULIANA NEVILLE ([id number]) 1965 F TRN Date Time Provider Department [...] mg by mouth. VTAMA 1 % cream HYDROcodone-acetamin ophen (NORCO) 5-325 mg per tablet Take 1-2 tablets by mouth every 4 hours as needed. docusate sodium (COLACE) 100 mg capsule Take one capsule twice daily while taking pain medications to prevent constipation. Hold if loose stool No current facility-administere d medications on file prior to visit. PAST [...] Extremities: no (more content not included)... Normal [facility] BASIC METABOLIC PANELon BUN/CREATININE RATIO SEE NOTE: Normal 10-03 [facility] Comment on above: Order Comment: FASTI NG:NO FASTING: NO Result Comment: Not Reported: BUN and Creatinine are within reference range. Performed By: #### 9 [id number] #### [facility]/[address] [place], [place] Geriatric Psychiatrist: Rodolfo Vasquez M.D.,PhD #### [id number], [id number], 5081, 867, 866, 859 #### [facility] [address], [address] [place], [place] [address] Geriatric Psychiatrist: Neto Patel MD Calcium [Mass/Vol] 9.4 mg/dL Normal 8.6-10.4 [facility] Comment on above: Order Comment: FASTI NG:NO FASTING: NO Performed By: #### 9 0963 #### [facility]/[address] [place], [place] Geriatric Psychiatrist: Rodolfo Vasquez M.D.,PhD #### [id number], [id number], 5081, 867, 866, 859 #### [facility] [address], [address] [place], [place] [address] Geriatric Psychiatrist: Neto Patel MD Chloride [Moles/Vol] 100 mmol/L Normal 98-110 [facility] Comment on above: Order Comment: FASTI NG:NO FASTING: NO Performed By: #### 9 0963 #### [facility]/[address] [place] Ger[place] Psychiatrist: Rodolfo Vasquez M.D.,PhD #### [id number], 12958, 5081, 867, 866, 859 #### [facility] [address], [address] [place], [place] [id number] Geriatric Psychiatrist: Neto Patel MD CO2 [Moles/Vol] 28 mmol/L Normal 20-32 [facility] Comment on above: Order Comment: FASTI NG:NO FASTING: NO Performed By: #### 9 0963 #### [facility]/[address] [place] Ger[place] Psychiatrist: Rodolfo Vasquez M.D.,PhD #### [id number], 15823, 5081, 867, 866, 859 #### [facility] [place] [address] Geriatric Psychiatrist: Neto Patel MD Creatinine [Mass/Vol] 1.01 mg/dL Normal 0.50-1.03 [facility] Comment on above: Order Comment: FASTI NG:NO FASTING: NO Performed By: #### 9 0963 #### [facility]/[address] [place] Geriatric Psychiatrist: Rodolfo Vasquez M.D.,PhD #### [id number], 99575, 5081, 867, 866, 859 #### [facility] [address] Geriatric Psychiatrist: Neto Patel MD GFR/1.73 sq M.predicted among non-blacks MDRD (S/P/Bld) [Vol rate/Area] 65 mL/min/{1.73_m2} Normal > OR = 60 [facility] Comment on above: Order Comment: FASTI NG:NO FASTING: NO Performed By: #### 9 0963 #### [facility]/[address] [place] Geriatric Psychiatrist: Rodolfo Vasquez M.D.,PhD #### [id number], 24311, 5081, 867, 866, 859 #### [facility] [place] [address] Geriatric Psychiatrist: Neto Patel MD Glucose [Mass/Vol] 82 mg/dL Normal 65-139 [facility] Comment on above: Order Comment: FASTI NG:NO FASTING: NO Result Comment: Non-fasting reference interval Performed By: #### 9 0963 #### [facility]/[address] [place], [place] Geriatric Psychiatrist: Rodolfo Vasquez M.D.,PhD #### 16613, 83092, 5081, 867, 866, 859 #### [facility] [place] [address] Geriatric Psychiatrist: Neto Patel MD Potassium [Moles/Vol] 3.9 mmol/L Normal 3.5-5.3 [facility] Comment on above: Order Comment: FASTI NG:NO FASTING: NO Performed By: #### 9 0963 #### [facility]/[address] [place], [place] Geriatric Psychiatrist: Rodolfo Vasquez M.D.,PhD #### [id number], 71779, 5081, 867, 866, 859 #### [facility] [place] [address] Geriatric Psychiatrist: Neto Patel MD Sodium [Moles/Vol] 139 mmol/L Normal 135-146 [facility] Comment on above: Order Comment: FASTI NG:NO FASTING: NO Performed By: #### 9 0963 #### [facility]/[address] [place] Geriatric Psychiatrist: Rodolfo Vasquez M.D.,PhD #### [id number], 82053, 5081, 867, 866, 859 #### [facility] [address], [address] [place] [address] Geriatric Psychiatrist: Neto Patel MD Urea nitrogen [Mass/Vol] 13 mg/dL Normal 7-25 [facility] Comment on above: Order Comment: FASTI NG:NO FASTING: NO Performed By: #### 9 0963 #### [facility]/[place] [id number] [facility] [place], [place] Geriatric Psychiatrist: Rodolfo Vasquez M.D.,PhD #### [id number], [id number], 5081, 867, 866, 859 #### [facility] [address], [address] [place] [address] Geriatric Psychiatrist: Neto Patel MD T3 REVERSE, LC/MS/MSon 05-17 T3 REVERSE, LC/MS/MS 19 ng/dL Normal 8-25 [facility] Comment on above: Result Comment: This test was developed and its analytical performance characteristics have been determined by [facility] [place], [place]. It has not been cleared or approved by the U.S. Food and Drug Administration. This assay has been validated pursuant to the CLIA regulations and is used for clinical purposes. Performed By: #### 9 0963 #### [facility]/[place] [address] [facility] [place], [place] Geriatric Psychiatrist: Rodolfo Vasquez M.D.,PhD #### [id number], [id number], 5081, 867, 866, 859 #### [facility] [address], [address] [place], [place] [address] Geriatric Psychiatrist: Neto Patel MD T3, FREEon 05-17-2024 Free T3 [Mass/Vol] 2.8 pg/mL Normal 2.3-4.2 [facility] Comment on above: Performed By: #### 9 0963 #### [facility] [place], [place] Geriatric Psychiatrist: Rodolfo Vasquez M.D.,PhD #### [id number], 03512, 5081, 867, 866, 859 #### [facility] [place] [address] Geriatric Psychiatrist: Neto Patel MD T3, TOTALon 05-17-2024 T3, TOTAL 97 ng/dL Normal 76-181 [facility] Comment on above: Performed By: #### 9 0963 #### [facility]/[address] [place], [place] Geriatric Psychiatrist: Rodolfo Vasquez M.D.,PhD #### [id number], 64207, 5081, 867, 866, 859 #### [facility] [place] [address] Geriatric Psychiatrist: Neto Patel MD T4 (THYROXINE), TOTAL T4 [Mass/Vol] 9.9 ug/dL Normal 5.1-11.9 [facility] Comment on above: Performed By: #### 9 0963 #### [facility]/[address] [place], [place] Geriatric Psychiatrist: Rodolfo Vasquez M.D.,PhD #### [id number], 19615, 5081, 867, 866, 859 #### [facility] [place] [address] Geriatric Psychiatrist: Neto Patel MD T4, FREEon 05-17-2024 Free T4 [Mass/Vol] 1.3 ng/dL Normal 0.8-1.8 [facility] Comment on above: Performed By: #### 9 0963 #### [facility]/[address] [place], [place] Geriatric Psychiatrist: Rodolfo Vasquez M.D.,PhD #### [id number], 79908, 5081, 867, 866, 859 #### [facility] of [address] Geriatric Psychiatrist: Neto Patel MD THYROID PEROXIDASE ANTIBODIE Son 05-17-2024 THYROID PEROXIDASE ANTIBODIES 3 IU/mL Normal <9 [facility] Comment on above: Performed By: #### 9 0963 #### [facility]/[place] [address] [facility] [place], [place] Geriatric Psychiatrist: Rodolfo Vasquez M.D.,PhD #### 29244, 04540, 5081, 867, 866, 859 #### [facility] of [address], [address] [place] [address] Geriatric Psychiatrist: Neto Patel MD TSHon 05-17-2024 TSH Qn 15.25 m[IU]/L High 0.40-4.50 [facility] Comment on above: Performed By: #### 9 0963 #### [facility]/[address] [place], [place] Geriatric Psychiatrist: Rodolfo Vasquez M.D.,PhD #### [id number], 23746, 5081, 867, 866, 859 #### [facility] [address], [address] [place] [address] Geriatric Psychiatrist: Neto Patel MD Letter (Out)on 05-04-2024 Letter (Out) [id number] Juliana Neville 1965 Date Provider Department Center 05/04/2024 None-None [facility] Medical C Family History Problem Relation Age of Onset No Known Problems Mother Valvular heart disease Father Atrial fibrillation Father Family Status - Relation Status Age at Mother Father Normal [facility] Office Visiton 04-27-2024 Follow-up visit [id number] Juliana Neville 1965 Date Provider Department Center 04/27/2024 RAE CAIN LIZZETTE [place] Family History Problem Relation Age of Onset No Known Problems Mother Valvular heart disease Father Atrial fibrillation Father Family Status - Relation Status Age at Mother Father Level of Service:67028 [place] OFFICE/OUTPATIENT NEW MODERATE MDM 45 MINUTES Normal [facility] No Panel Informationon 04-21 Interpretation and review of laboratory results Normal [facility] Healthcare Rapid Influenza A Ag Negative Negative, Indeterminate [facility] Rapid Influenza B Ag Negative Negative, Indeterminate [facility] Healthcare [facility] Healthcare Physician Referralon 024 Physician Referral [id number] 1.00TIFF Normal [facility] Payam 09-30-2023 L Specimen: [id number] Received: 09/30/23 Status: JAMSHID Parks Num: [id number] Spec Type: Surgical Subm Dr: Taco Anne MD Tissues: A Skin-Other than Cyst, tag, debridement or plastic repair (RT LOWER EYELID) Procedures: HE/4, Gross/Micro L4, SOX-10 Age/ Patient Sex Location Account Attending Physician Juliana Neville 57/F [place] [id number] Taco Anne MD SPEC NUM: [id number] RECD: 09/30/23 STATUS: JAMSHID PARKS NUM: [id number] OSMIN: 09/30/[address]: Taco Anne MD ENTERED: 09/30/[address] [facility] [address]: SPEC TYPE: Surgical DEPT: S [...] A1: 9:00 tip A2: 3:00 tip Specimen: [id number] Received: 09/30/23 Status: VETOJorge A Parks Num: [id number] Spec Type: Surgical Subm Dr: Taco Anne MD Tissues: A Skin-Other than Cyst, tag, debridement or plastic repair (RT LOWER EYELID) Procedures: HE/4, Gross/Micro L4, SOX-10 Patient: Juliana Neville [id number] (Continued) Specimen: [id number] Received: 09/30/23 (Continued) Gross Description (Continued) Signed (signature on file) Bebe Blackwell MD 10/05/23 1744 Specimen: [id number] Received: 09/30/23 Status: JAMSHID Parks Num: [id number] Spec Type: Surgical Subm Dr: Taco Anne MD Tissues: A Skin-Other than Cyst, tag, debridement or plastic repair (RT LOWER EYELID) Procedures: , Gross/Micro L4, SOX-10 Patient: Juliana Neville [id number] (Continued) Specimen: [id number] Received: 09/30/23 (Continued) Gross Description (Continued) A3:12:00 to 6:00 region CPT Codes 86280 [id number] Specimen: [id number] Received: 09/30/23 Status: JAMSHID Parks Num: [id number] Spec Type: Surgical Subm Dr: Taco Anne MD Tissues: A Skin-Other than Cyst, tag, debridement or plastic repair (RT LOWER EYELID) Procedures: /Ela, Gross/Micro L4, SOX-10 Patient: Juliana Neville [id number] (Continued) Signed (signature on file) Bebe Blackwell MD 10/05/23 5196 Normal [facility] ESTROGENon 02-14-2022 Estrogens, Total 42 pg/mL Normal 40-244 [facility] Comment on above: Result Comment: Prep ubertal < 40 Female Cycle: 1-10 Days 16 - 328 11-20 Days 34 - 501 21-30 Days 48 - 350 Post-Menopausal 40 - 244 Performed By: #### E STROG #### [facility] [address] [place] [address] Dr. Rica Blackwell FSHon 02-09-2022 FSH 51.6 mIU/mL Normal [facility] Comment on above: Result Comment: Adul t Female: Follicular phase 3.5 - 12.5 Ovulation phase 4.7 - 21.5 Luteal phase 1.7 - 7.7 Postmenopausal 25.8 - 134.8 Performed By: #### L [facility] #### [facility] [address] [place] [address] Dr. Rica Blackwell LUTEINIZING HORMONE (LH)on LH 33.9 mIU/mL Normal [facility] Comment on above: Result Comment: Adul t Female: Follicular phase 2.4 - 12.6 Ovulation phase 14.0 - 95.6 Luteal phase 1.0 - 11.4 Postmenopausal 7.7 - 58.5 Performed By: #### L BCL #### [facility] [address] [place] [address] Dr. Rica Blackwell PROGESTERONEon 02-09-2022 Progesterone <0.1 Normal [facility] Comment on above: Result Comment: Foll icular phase 0.1 - 0.9 Luteal phase 1.8 - 23.9 Ovulation phase 0.1 - 12.0 First trimester 11.0 - 44.3 Second trimester 25.4 - 83.3 Third trimester 58.7 - 214.0 Postmenopausal 0.0 - 0.1 Performed By: #### P ANNE MARIEES #### [facility] [address] [place] [address] Dr. Rica Blackwell TSHon 02-08-2022 TSH 3.424 uIU/mL Normal 0.358-3.740 [facility] Comment on above: Performed By: #### T #### [facility] [address] [place] [address] Dr. Rica Blackwell Complete Blood Count with Au to Diffon 07-03-2021 Basophils (Bld) [#/Vol] 0.07 10*3/uL Normal 0.00-0.20 [facility] Comment on above: Performed By: #### C BCAD, TSH, FT4, CMP, FT3 #### [facility] [address] [place], [place] [id number] Basophils/100 WBC (Bld) 1.4 % Normal [facility] Comment on above: Performed By: #### C BCAD, TSH, FT4, CMP, FT3 #### [facility] [address] [place], [place] [id number] Eosinophils (Bld) [#/Vol] 0.19 10*3/uL Normal 0.02-0.50 [facility] Comment on above: Performed By: #### C BCAD, TSH, FT4, CMP, FT3 #### [facility] [address] [place], [place] [id number] Eosinophils/100 WBC (Bld) 3.7 % Normal [facility] Comment on above: Performed By: #### C BCAD, TSH, FT4, CMP, FT3 #### [facility] [address] [place], [place] [id number] Erythrocyte distribution width (RBC) [Ratio] 14.3 % Normal 11.0-15.0 [facility] Comment on above: Performed By: #### C BCAD, TSH, FT4, CMP, FT3 #### [facility] [address] [place], [place] [id number] Hematocrit (Bld) [Volume fraction] 44.5 % Normal 35.0-47.0 [facility] Comment on above: Performed By: #### C BCAD, TSH, FT4, CMP, FT3 #### [facility] [address] [place], [place] [id number] Hemoglobin (Bld) [Mass/Vol] 14.2 g/dL Normal 11.6-15.5 [facility] Comment on above: Performed By: #### C BCAD, TSH, FT4, CMP, FT3 #### [facility] [address] [place], [place] [id number] Lymphocytes (Bld) [#/Vol] 1.6 10*3/uL Normal 0.9-3.9 [facility] Comment on above: Performed By: #### C BCAD, TSH, FT4, CMP, FT3 #### [facility] [address] [place], [place] [id number] Lymphocytes/100 WBC (Bld) 31.1 % Normal [facility] Comment on above: Performed By: #### C BCAD, TSH, FT4, CMP, FT3 #### [facility] [address] [place], [place] [id number] MCH (RBC) [Entitic mass] 27.7 pg Normal 27.0-33.0 [facility] Comment on above: Performed By: #### C BCAD, TSH, FT4, CMP, FT3 #### [facility] [address] [place], [place] [id number] MCHC (RBC) [Mass/Vol] 31.9 g/dL Low 32.0-36.0 [facility] Comment on above: Performed By: #### C BCAD, TSH, FT4, CMP, FT3 #### [facility] [address] [place], [place] [id number] MCV (RBC) [Entitic vol] 87 fL Normal 80-100 [facility] Comment on above: Performed By: #### C BCAD, TSH, FT4, CMP, FT3 #### [facility] [address] [place], [place] [id number] Monocytes (Bld) [#/Vol] 0.6 10*3/uL Normal 0.2-0.9 [facility] Comment on above: Performed By: #### C BCAD, TSH, FT4, CMP, FT3 #### [facility] [address] [place], [place] [id number] Monocytes/100 WBC (Bld) 10.8 % Normal [facility] Comment on above: Performed By: #### C BCAD, TSH, FT4, CMP, FT3 #### [facility] [address] [place], [place] [id number] Neutrophils (Bld) [#/Vol] 2.7 10*3/uL Normal 1.5-7.8 [facility] Comment on above: Performed By: #### C BCAD, TSH, FT4, CMP, FT3 #### [facility] [address] [place], [place] [id number] Neutrophils/100 WBC (Bld) 52.6 % Normal [facility] Comment on above: Performed By: #### C BCAD, TSH, FT4, CMP, FT3 #### [facility] [address] [place], [place] [id number] Platelet mean volume (Bld) [Entitic vol] 11.60 fL Normal 7.50-12.50 [facility] Comment on above: Performed By: #### C BCAD, TSH, FT4, CMP, FT3 #### [facility] [address] [place], [place] [id number] Platelets (Bld) [#/Vol] 214 10*3/uL Normal 140-400 [facility] Comment on above: Performed By: #### C BCAD, TSH, FT4, CMP, FT3 #### [facility] [address] [place], [place] [id number] RBC (Bld) [#/Vol] 5.13 10*6/uL Normal 3.90-5.20 [facility] Comment on above: Performed By: #### C BCAD, TSH, FT4, CMP, FT3 #### [facility] [address] [place], [place] [id number] RDW-SD 45.8 fL Normal 37.0-50.0 [facility] Comment on above: Performed By: #### C BCAD, TSH, FT4, CMP, FT3 #### [facility] [address] [place], [place] [id number] WBC (Bld) [#/Vol] 5.2 10*3/uL Normal 3.8-11.0 [facility] Comment on above: Performed By: #### C BCAD, TSH, FT4, CMP, FT3 #### [facility] [address] [place], [place] [id number] Comprehensive Metabolic Pane [facility] 07-03-2021 Albumin [Mass/Vol] 4.9 g/dL Normal 3.6-5.1 [facility] Comment on above: Performed By: #### C BCAD, TSH, FT4, CMP, FT3 #### [facility] [address] [place], [place] [id number] Albumin/Globulin [Mass ratio] 2.0 {ratio} Normal 1.0-2.5 [facility] Comment on above: Performed By: #### C BCAD, TSH, FT4, CMP, FT3 #### [facility] [address] [place], [place] [id number] ALP [Catalytic activity/Vol] 91 U/L Normal 35-119 [facility] Comment on above: Performed By: #### C BCAD, TSH, FT4, CMP, FT3 #### [facility] [address] [place], [place] [id number] ALT [Catalytic activity/Vol] 29 U/L Normal 6-33 [facility] Comment on above: Result Comment: 03/14 Female reference range changed. Performed By: #### C BCAD, TSH, FT4, CMP, FT3 #### [facility] [address] [place], [place] [id number] Anion gap [Moles/Vol] 21 mmol/L High 12-20 [facility] Comment on above: Result Comment: Effe ctive 04/19/2019 reference range changed. Performed By: #### C BCAD, TSH, FT4, CMP, FT3 #### [facility] [address] [place], [place] [id number] AST [Catalytic activity/Vol] 25 U/L Normal 9-34 [facility] Comment on above: Performed By: #### C BCAD, TSH, FT4, CMP, FT3 #### [facility] [address] [place], [place] [id number] Bilirubin [Mass/Vol] 0.85 mg/dL Normal 0.30-1.20 [facility] Comment on above: Performed By: #### C BCAD, TSH, FT4, CMP, FT3 #### [facility] [address] [place], [place] [id number] BUN/CREA 21 Ratio Normal 6-22 [facility] Comment on above: Performed By: #### C BCAD, TSH, FT4, CMP, FT3 #### [facility] [address] [place], [place] [id number] Calcium [Mass/Vol] 9.8 mg/dL Normal 8.6-10.2 Elisabet [facility] Comment on above: Performed By: #### C BCAD, TSH, FT4, CMP, FT3 #### [facility] [address] [place], [place] [id number] Chloride [Moles/Vol] 99 mmol/L Normal 98-107 [facility] Comment on above: Performed By: #### C BCAD, TSH, FT4, CMP, FT3 #### [facility] [address] [place], [place] [id number] CO2 [Moles/Vol] 23 mmol/L Normal 20-31 [facility] Comment on above: Performed By: #### C BCAD, TSH, FT4, CMP, FT3 #### [facility] [address] [place], [place] [id number] Creatinine [Mass/Vol] 0.7 mg/dL Normal 0.6-1.4 [facility] Comment on above: Performed By: #### C BCAD, TSH, FT4, CMP, FT3 #### [facility] [address] [place], [place] [id number] eGFRAA 109 mL/min/1.73m2 Normal >60 [facility] Comment on above: Performed By: #### C BCAD, TSH, FT4, CMP, FT3 #### [facility] [address] [place], [place] [id number] eGFRNAA 90 mL/min/1.73m2 Normal >60 [facility] Comment on above: Performed By: #### C BCAD, TSH, FT4, CMP, FT3 #### [facility] [address] [place], [place] [id number] Globulin (S) [Mass/Vol] 2.5 g/dL Normal 1.9-3.7 [facility] Comment on above: Performed By: #### C BCAD, TSH, FT4, CMP, FT3 #### [facility] [address] [place], [place] [id number] Glucose [Mass/Vol] 83 mg/dL Normal 65-99 Elisabet [place] [facility] Comment on above: Result Comment: For FASTING Glucose --- ADA reference ranges: Normal 65-99 mg/dl Prediabetes 100-125 Diabetes >/= 126 Performed By: #### C BCAD, TSH, FT4, CMP, FT3 #### [facility] [address] [place], [place] [id number] Potassium [Moles/Vol] 4.0 mmol/L Normal 3.5-5.5 [facility] Comment on above: Performed By: #### C BCAD, TSH, FT4, CMP, FT3 #### [facility] [address] [place], [place] [id number] Protein [Mass/Vol] 7.4 g/dL Normal 6.1-8.1 Elisabet [place] [facility] Comment on above: Performed By: #### C BCAD, TSH, FT4, CMP, FT3 #### [facility] [address] [place], [place] [id number] Sodium [Moles/Vol] 139 mmol/L Normal 135-146 Elisabet [place] [facility] Comment on above: Performed By: #### C BCAD, TSH, FT4, CMP, FT3 #### [facility] [address] [place], [place] [id number] Urea nitrogen [Mass/Vol] 14 mg/dL Normal 7-25 [facility] Comment on above: Performed By: #### C BCAD, TSH, FT4, CMP, FT3 #### [facility] [address] [place], [place] [id number] Free T3on 07-03-2021 FT3 2.83 pg/mL Normal 2.00-4.40 [facility] Comment on above: Performed By: #### C BCAD, TSH, FT4, CMP, FT3 #### [facility] [address] [place], [place] [id number] Free T4on 07-03-2021 Free T4 [Mass/Vol] 1.79 ng/dL Normal 0.80-1.80 Elisabet rn [place] [facility] Comment on above: Performed By: #### C BCAD, TSH, FT4, CMP, FT3 #### [facility] [address] [place], [place] [id number] TSHon 07-03-2021 TSH 1.670 uIU/mL Normal 0.400-4.500 [facility] Comment on above: Performed By: #### C BCAD, TSH, FT4, CMP, FT3 #### [facility] [address] [place], [place] [id number] Vital Signs Date Time Vital Sign Value Performing Clinician Facility 05-20-2024 09:45-0500 Diastolic blood pressure 80 mm[Hg] Naina Thornton MD Work Phone: [facility] 05-20-2024 09:45-0500 Systolic blood pressure 123 mm[Hg] Naina Thornton MD Work Phone: [facility] 05-20-2024 08:59-0500 Body height 162.6 cm Naina Thornton MD Work Phone: [facility] 05-20-2024 08:59-0500 Body mass index (BMI) [Ratio] 50.44 kg/m2 Naina Thornton MD Work Phone: [facility] 05-20-2024 08:59-0500 Body weight 133.3 kg Naina Thornton MD Work Phone: [facility] 04-21-2024 15:37-0500 Body height 162.6 cm Sherrie Cazares RAGMAN Work Phone: [facility] 04-21-2024 15:37-0500 Body mass index (BMI) [Ratio] 50.74 kg/m2 Sherrie Cazares RAGMAN Work Phone: [facility] 04-21-2024 15:37-0500 Body weight 134.08 kg Sherrie Cazares RAGMAN Work Phone: [facility] 04-21-2024 15:37-0500 Diastolic blood pressure 84 mm[Hg] Sherrie Cazares RAGMAN Work Phone: [facility] 04-21-2024 15:37-0500 Heart rate 60 /min Sherrie Cazares RAGMAN Work Phone: [facility] 04-21-2024 15:37-0500 Respiratory rate 18 /min Sherrie Cazares RAGMAN Work Phone: [facility] 04-21-2024 15:37-0500 SaO2% (BldA) [Mass fraction] 97 % Sherrie Cazares RAGMAN Work Phone: [facility] 04-21-2024 15:37-0500 Systolic blood pressure 130 mm[Hg] Sherrie Cazares RAGMAN Work Phone: [facility] 03-18-2024 10:36-0500 Body height 162.6 cm Alba Hemmer PA Work Phone: [facility] 03-18-2024 10:36-0500 Body mass index (BMI) [Ratio] 50.26 kg/m2 Alba Hemmer PA Work Phone: [facility] 03-18-2024 10:36-0500 Body temperature 99.19 [degF] Alba Hemmer PA Work Phone: [facility] 03-18-2024 10:36-0500 Body weight 132.81 kg Alba Hemmer PA Work Phone: [facility] 03-18-2024 10:36-0500 Diastolic blood pressure 82 mm[Hg] Alba Hemmer PA Work Phone: [facility] 03-18-2024 10:36-0500 Heart rate 73 /min Alba Hemmer PA Work Phone: [facility] 03-18-2024 10:36-0500 Respiratory rate 16 /min Alba Hemmer PA Work Phone: [facility] 03-18-2024 10:36-0500 SaO2% (BldA) [Mass fraction] 97 % Alba Hemmer PA Work Phone: [facility] 03-18-2024 10:36-0500 Systolic blood pressure 132 mm[Hg] Alba Hemmer PA Work Phone: [facility] 02-16-2024 16:39-0500 Body height 162.6 cm Alba Hemmer PA Work Phone: [facility] 02-16-2024 16:39-0500 Body mass index (BMI) [Ratio] 50.46 kg/m2 Alba Hemmer PA Work Phone: [facility] 02-16-2024 16:39-0500 Body weight 133.36 kg Alba Hemmer PA Work Phone: [facility] 02-16-2024 16:39-0500 Diastolic blood pressure 94 mm[Hg] Alba Hemmer PA Work Phone: [facility] 02-16-2024 16:39-0500 Heart rate 60 /min Alba Hemmer PA Work Phone: [facility] 02-16-2024 16:39-0500 Respiratory rate 16 /min Alba Hemmer PA Work Phone: [facility] 02-16-2024 16:39-0500 SaO2% (BldA) [Mass fraction] 98 % Alba Hemmer PA Work Phone: [facility] 02-16-2024 16:39-0500 Systolic blood pressure 138 mm[Hg] Alba Hemmer PA Work Phone: [facility] 01-27-2024 14:29-0400 Body mass index (BMI) [Ratio] 49.95 kg/m2 Waldo Alexander MD Work Phone: [facility] 01-27-2024 14:29-0400 Body weight 132 kg Waldo Alexander MD Work Phone: [facility] 09-17-2023 09:58-0400 Body height 162.56 cm II Bang Aviles Work Phone: [facility] 09-17-2023 09:58-0400 Body mass index (BMI) [Ratio] 48.4 kg/m2 II Bang Aviles Work Phone: [facility] 09-17-2023 09:58-0400 Body temperature 98 [degF] II Bang Aviles Work Phone: [facility] 09-17-2023 09:58-0400 Body weight 128 kg II Bang Aviles Work Phone: [facility] 09-17-2023 09:58-0400 Diastolic blood pressure 84 mm[Hg] II Bang Aviles Work Phone: [facility] 09-17-2023 09:58-0400 Heart rate 87 /min II Bang Aviles Work Phone: [facility] 09-17-2023 09:58-0400 Respiratory rate 20 /min II Bang Aviles Work Phone: [facility] 09-17-2023 09:58-0400 SaO2% (BldA) [Mass fraction] 98 % II Bang Aviles Work Phone: [facility] 09-17-2023 09:58-0400 Systolic blood pressure 173 mm[Hg] II Bang Aviles Work Phone: [facility] Encounters Encounter Date Encounter Type Care Provider Facility Start: 06-09-2024 End: 06-09-2024 Clinisync Result Encounter Generic External Data Provider [facility] External Department Unsolicited Start: 06-09-2024 End: 06-09-2024 Clinisync Result Encounter Generic External Data Provider [facility] External Department Unsolicited Start: 05-20-2024 End: 05-20-2024 ambulatory SELF Facility:[facility] Start: 05-20-2024 End: 05-20-2024 Patient encounter procedure Naina Thornton MD Work Phone: Endocrinology Comment on above: Hypothyroidism, unsp ecified type (Primary Dx); Elevated TSH; Atrial fibrillation, unspecified type (HCC); Abnormal weight gain; Obstructive sleep apnea; Fatigue, unspecified type Start: 05-17-2024 End: 05-17-2024 ambulatory ZHANNA [facility] Start: 04-27-2024 End: 04-27-2024 ambulatory RAE SIMON [facility] Start: 04-21-2024 End: 04-21-2024 Office outpatient visit 25 minutes Sherrie Cazares RAGMAN Work Phone: [facility] Comment on above: Acute non-recurrent frontal sinusitis (Primary Dx); Fever and chills; Vaginal yeast infection Start: 04-21-2024 End: 04-21-2024 ambulatory SHERRIE CAZARES Not Available Start: 03-22-2024 End: 03-22-2024 Telephone encounter Alba Donovan PA Work Phone: [facility] Start: 03-18-2024 End: 03-18-2024 Bamboo flowsheet Alba Da Arenmer PA Work Phone: [facility] Start: 03-18-2024 End: 03-18-2024 Bamboo flowsheet Alba Roberson Hemmer PA Work Phone: [facility] Start: [...] Start: 02-16-2024 End: 02-16-2024 Bamboo flowsheet Alba Roberson Hemmer PA Work Phone: [facility] Start: [...] 09-30-2023 ambulatory II Bang Aviles Work Phone: [facility] Work Phone: Start: 09-30-2023 End: 09-30-2023 Departed Referred ODILON Aviles Work Phone: [facility] [place] Work Phone: Start: 09-17-2023 End: 09-17-2023 Patient encounter procedure II Bagn Aviles Work Phone: [facility] Physician [facility] Work Phone: Start: 09-17-2023 Registered Recurring II Bang Aviles Work Phone: [facility] Work Phone: Start: 09-17-2023 End: 09-17-2023 ambulatory ODILON Aviles Work Phone: [facility] Work Phone: Start: 02-08-2022 End: 02-09-[address] BANG AVILES Facility:H1 Procedures Date Procedure Procedure Detail Performing Clinician Start: 06-09-2024 CA ECHO DOPPLER COMPLETE Generic External Data Provider Start: 04-21-2024 Iaadiadoo brain Cazares RAGMAN Work Phone: Start: 10-25-2020 Colonoscopy Alba Gordon er PA Work Phone: Start: 07-20-2020 Mammography Alba Gordon er PA Work Phone: Plan of Treatment Date Care Activity Detail Author Start: 10-25-2030 Screening for malignant neoplasm of colon [facility] Start: 10-11-2024 Influenza vaccination Influenza Vaccine (#1) [facility] Comment on above: Postponed from 12/14/2023 (Patient Refus ed) Start: 09-21-2024 End: 09-21-2024 Follow-up encounter 09/21/2024 6:00 PM EDT [facility]ology [address] [address] Naina Thornton MD [address] [id number] 4 month virtual follow up Endocrinology Comment on above: 4 month virtual follow up Start: 05-20-2024 End: 08-19-2024 Thyrotropin [Units/volume] in Serum or Plasma THYROID STIMULATING HORMONE Lab Routine Hypothyroidism, unspecified type Expected: 05/20/2024, Expires: 08/19/2024 [facility] Work Phone: Comment on above: Expected: 05/20/2024, Expires: Start: 03-22-2024 End: 03-22-2024 Patient encounter procedure 03/22/2024 4:15 PM EST Office Visit [facility] [address] [facility] [address] [place] [id number] Bang Aviles MD [address] [facility] [address] [place], [place] [id number] [facility] Start: 03-22-2024 End: 03-22-2025 Basic metabolic 1998 panel - Serum or Plasma Basic metabolic panel Lab Routine Generalized edema Expected: 03/22/2024 (Approximate), Expires: 03/22/2025 [facility] Work Phone: Comment on above: Expected: 03/22/2024 (Approximate), Expi res: 03/22/2025 Start: 03-22-2024 End: 03-22-2025 T3, reverse T3, reverse Lab Routine ESS (euthyroid sick syndrome) Acquired hypothyroidism (CMS/HCC) Expected: 03/22/2024 (Approximate), Expires: 03/22/2025 [facility] Comment on above: Expected: 03/22/2024 (Approximate), Expi res: 03/22/2025 Start: 03-22-2024 End: 03-22-2025 Thyroid peroxidase antibody Thyroid peroxidase antibody Lab Routine Paroxysmal atrial fibrillation (CMS/HCC) ESS (euthyroid sick syndrome) Acquired hypothyroidism (CMS/HCC) Expected: 03/22/2024 (Approximate), Expires: 03/22/2025 [facility] Comment on above: Expected: 03/22/2024 (Approximate), Expi res: 03/22/2025 Start: 03-22-2024 End: 03-22-2025 Thyrotropin [Units/volume] in Serum or Plasma [facility] Comment on above: Expected: 03/22/2024 (Approximate), Expi res: 03/22/2025 Start: 03-22-2024 End: 03-22-2025 Thyroxine (T4) free [Mass/volume] in Serum or Plasma T4, free Lab Routine ESS (euthyroid sick syndrome) Acquired hypothyroidism (CMS/HCC) Expected: 03/22/2024 (Approximate), Expires: 03/22/2025 [facility] Comment on above: Expected: 03/22/2024 (Approximate), Expi res: 03/22/2025 Start: 03-22-2024 End: 03-22-2025 Triiodothyronine (T3) [Mass/volume] in Serum or Plasma T3 Lab Routine ESS (euthyroid sick syndrome) Acquired hypothyroidism (CMS/HCC) Expected: 03/22/2024 (Approximate), Expires: 03/22/2025 [facility] Comment on above: Expected: 03/22/2024 (Approximate), Expi res: 03/22/2025 Start: 03-22-2024 End: 03-22-2025 Triiodothyronine (T3) Free [Mass/volume] in Serum or Plasma T3, free Lab Routine ESS (euthyroid sick syndrome) Acquired hypothyroidism (CMS/HCC) Expected: 03/22/2024 (Approximate), Expires: 03/22/2025 [facility] Comment on above: Expected: 03/22/2024 (Approximate), [...] [address] [place] [address] Alba Donovan PA [address] [place] [address] Arrived [facility] Comment on above: Arrived Start: 02-16-2024 End: 02-16-2024 Patient encounter procedure 02/16/2024 4:30 PM EST Office Visit [facility] [address] [place] [address] Alba Donovan PA [address] [place] [address] Arrived [facility] Comment on above: [...] (CMS/HCC) Palpitations Expected: 02/16/2024 (Approximate), Expires: 02/15/2025 [facility] Comment on above: Expected: 02/16/2024 (Approximate), Expi res: 02/15/2025 Start: 02-16-2024 End: 02-15-2025 TSH W/REFLEX TO FT4 TSH W/REFLEX TO FT4 Lab Routine Acquired hypothyroidism (CMS/HCC) Expected: 02/16/2024 (Approximate), Expires: 02/15/2025 [facility] Work Phone: Comment on above: Expected: 02/16/2024 (Approximate), Expi res: 02/15/2025 Start: 01-27-2024 End: 03-28-2025 MR Breast - bilateral WO and W contrast IV Bilateral breast MR with and without contrast Imaging Routine Family history of breast cancer Dense breasts Fibrocystic breast changes of both breasts Expected: 01/27/2024, Expires: 03/28/2025 [facility] Comment on above: Expected: 01/27/2024, Expires: Start: 12-14-2023 Covid-19 Vaccine ( season) Covid-19 Vaccine ( season) [facility] Start: 12-14-2023 Influenza vaccination Influenza Vaccine (#1) [facility] Start: 09-17-2023 Patient referral [facility] Work Phone: Start: 07-30-2023 Screening for malignant neoplasm of cervix [facility] Start: 07-20-2021 Screening for malignant neoplasm of breast [facility] Start: 2016 Pneumococcal Vaccine: 50+ (1 of 1 - PCV) Pneumococcal Vaccine: 50+ (1 of 1 - PCV) [facility] Start: 2016 Shingrix Vaccine (1 of 2) Shingrix Vaccine (1 of 2) [facility] Start: 10-29-2011 Diabetes Screening Diabetes Screening [facility] Start: 10-29-2011 Lipid panel Lipid Screening [facility] Start: 10-29-2011 Screening for malignant neoplasm of colon [facility] Start: 10-29-1987 Screening for malignant neoplasm of cervix [facility] Start: 1985 Hepatitis B Vaccine (1 of 3 - 19+ 3-dose series) Hepatitis B Vaccine (1 of 3 - 19+ 3-dose series) [facility] Start: 1985 Urine microalbumin profile DTaP,Tdap,Td Vaccine (1 - Tdap) [facility] Start: 1984 Annual PCP Team Chronic Disease Visit Annual PCP Team Chronic Disease Visit [facility] Start: 1984 Anxiety Screening Anxiety Screening [facility] Start: 1984 BP Controlled (<130/80) BP Controlled (<130/80) [facility] Start: 1984 Depression Screening Depression Screening [facility] Start: 1984 Hepatitis C screening Hepatitis C Screening [facility] Start: 1984 HIV screening HIV Screening [facility] Start: 1966 Screening for malignant neoplasm of colon [facility] Patient referral [facility] Work Phone: SENDOUT TEST MISCELLANEOUS [facility] SENDOUT TEST MISCELLANEOUS [facility] Lab Routine Screening for malignant neoplasm of cervix Encounter for gynecological examination without abnormal finding Ordered: 01/27/2024 [facility] Work Phone: Comment on above: Ordered: 01/27/2024 Payers Date Payer Category Payer Private Health Insurance [id number] 2023 Self-pay [id number] 2023 Private Health Insurance [id number] 2011 Private Health Insurance 1965 Unknown [id number] 2.16.84 [id number] 1966 Unknown [id number] 2.16.8 [id number] 1966 Unknown [id number] 2.16.84 [id number] 1966 Unknown [id number] 2.16.84 [id number] 1966 Unknown [id number] 2.16.84 [id number] 1966 Unknown [id number] 2.16.84 [id number] 1966 Unknown [id number] 2.16.84 [id number] 1966 Unknown [id number] 2.16.84 [id number] 1959 Self-pay [id number] Unknown [id number] 2.16.8 [id number] Unknown [id number] 2.16.8 [id number] Social History Date Type Detail Facility Start: 02-15-2016 End: 09-17-2023 Tobacco smoking status ILIS Ex-smoker (finding) [facility] Start: 1965 Sex Assigned At Female F [facility] Start: 10-06-2023 Tobacco smoking stat us [facility] Never smoked tobacco [facility] Start: 02-15-2016 End: 10-06-2023 Tobacco use and exposure Smokeless tobacco non-user [facility] Start: 01-27-2024 End: 04-21-2024 Alcoholic beverage intake Ex-drinker (finding) [facility] Start: 01-27-2024 End: 04-21-2024 History of Social function [facility] Start: 01-27-2024 End: 04-21-2024 Tobacco use panel [facility] Start: 1965 Sex assigned at Not on file [facility] History of tobacco use Current smoker [facility] History of tobacco use Cigarette Smoker C [facility] Start: 03-14-2016 Alcoholic beverage intake Current non-drinker of alcohol (finding) [facility] National Score (1-100), lower number is lower risk 76 [facility] Start: 08-13-2012 Tobacco Comment quit in 2002 [facility] Clinical Notes 12-10-2023 to 05-20-2024 Naina Thornton MD - 05/20/2024 9:04 ALISON Cazares NP - 04/21/2024 3:30 PM ESTPatient InstructionsTelephone Encounter - ASAEL Broussard - 03/22/2024 4:27 PM EST Note Date & Type Note Facility 05-20-2024 Note HNO ID: [id number] Author: NAINA THORNTON MD Service: ? Author [...] arms Patient was recently dx with Hossein Govea cardiology She was started on a 2nd [...] and bio-chemically hypothyroid (more content not included)... [facility] 05-20-2024 History of Present illness Narrative SELF [...] a virtual visit documented in this encounter [facility] 04-27-2024 Note [place] Electrophysiology Consult Note [place] Cardiology - [facility] Reason for visit: HPI: Juliana Neville [...] Depression: Not at risk (01/27/2024) Received from [facility] PHQ-2 Patient Health Questionnaire-2 Score: 1 Housing [...] JAIDEN eval. - (more content not included)... [facility] 04-21-2024 History of Present illness Narrative Images [...] CHEW, OR SPLIT. 30 tablet 1 fluocinolone ([place]) 0.01 % external oil APPLY TO AFFECTED [...] cyst mass - begnign Dr. Joel Hamilton [facility] Past Surgical History: Procedure Laterality Date SECTION, [...] follow-ups on file. documented in this encounter [facility] 04-21-2024 Instructions Sherrie Cazares NP - 04/21/2024 3:30 PM EST Amoxicillin ordered today. [place] DMT samples given documented in this encounter [facility] 03-22-2024 Telephone encounter Note Spoke with patient. Reviewed the above information in detail with patient. She has had issues with her heart rhythm before when her thyroid was out of whack, requesting full thyroid panel labs, states TSH is never enough for her. Ordered. She is agreeable to new medications for the time being. [facility] 03-22-2024 Miscellaneous Notes Spoke with patient. Reviewed [...] to return call. documented in this encounter [facility] 03-22-2024 Telephone encounter Note Need to speak [...] insurance. LM for pt to return call. [facility] 03-18-2024 History of Present illness Narrative Images [...] to Visit Medication Sig Dispense Refill fluocinolone ([place]) 0.01 % external oil APPLY TO AFFECTED [...] cyst mass - begnign Dr. Joel Hamilton [facility] Past Surgical History: Procedure Laterality Date SECTION, LOW TRANSVERSE COLONOSCOPY 2010 ESOPHAGOGASTRODUODENOSCOPY 2010 VAGINAL MASS EXCISION 2005 benign [...] this visit: Acute non-recurrent frontal sinusitis - [id number] 60-15-400 MG tablet; Take 1 tablet by [...] Appointment As Scheduled. documented in this encounter [facility] 02-16-2024 History of Present illness Narrative Images [...] cyst mass - begnign Dr. Joel Hamilton [facility] Past Surgical History: Procedure Laterality Date SECTION, [...] order to have Holter Monitor placed at [facility] for 7 days for further evaluation of current symptoms. Follow up in about 4 weeks (around 03/15/2024) for Medication Follow Up. documented in this encounter [facility] 01-27-2024 History of Present illness Narrative Images from the original note were not included. Waldo Alexander MD Obstetrics and Gynecology Patient: Juliana Neville : 1965 (58 y.o.) Yearly Wellness Exam Date: 01/27/2024 Reason for Visit - Chief Complaint Patient presents with Gynecologic Exam LMP: [facility] [employer] [facility] Last Mammogram: 07/20/20- refused mammogram in 2021 [...] Urethral cyst [facility] - [facility] Past Surgical History: Procedure Laterality Date SECTION, LOW TRANSVERSE COLONOSCOPY 2010 ESOPHAGOGASTRODUODENOSCOPY 2010 VAGINAL MASS EXCISION [address] Joel Lindsey Family History [...] 7 days Breast MRI order placed for [facility]. documented in this encounter [facility] 12-10-2023 Telephone encounter Note Paxil sent in for patient. [facility] 12-10-2023 Miscellaneous Notes Paxil sent in for [...] her please advise documented in this encounter [facility] 12-10-2023 Telephone encounter Note Pt stated she only used this for Three weeks , she had a very loud roaring in her ears ,stated she had the same problem the last time she tried this a few years ago [facility] 12-10-2023 Telephone encounter Note Pt lm on stating she discontinued celexa due to side effects, but she is wondering if there is something similar that could be sent in for her please advise [facility] Evaluation note Diagnosis Onset Date Malignant melanoma in situ a [facility] Work Phone: Evaluation note* Diagnosis Family history of breast cancer- Primary Family history of malignant neoplasm of breast Encounter for screening mammogram for malignant neoplasm of breast Screening for malignant neoplasm of cervix Screening for malignant neoplasm of the cervix Encounter for gynecological examination without abnormal finding Dense breasts Inconclusive mammogram Fibrocystic breast changes of both breasts [facility] Diagnosis Benign essential hypertension (CMS/HCC)- [...] Fatigue, unspecified type [facility] Author Fransico Campos [facility] September 17, 2023 11:03am Note Date/Time September 17, 2023 9:54a m [facility] [place] [address] Cancer Center Note Signed Patient: Juliana Neville MR#: [id number] : 1965 Acct:[id number] Age/Sex: 57 / F Type: REG AMB Date of Service: 09/17/23 Copies to: MD Shanta Gamboa II, MD~ Assessment & Plan A/P (1) Malignant melanoma in situ: Plan At this point patient had 1 cm hyperpigmented macule on the right superior cheekjust below her right eyelid. Patient status post shave skin biopsy done on 08/14/2023 by her coupon manifest clerk which revealed malignant melanoma in situ with [...] therefore she underwent a biopsy by her coupon manifest clerk on 08/14/2023 which revealed malignant melanoma in [...] shave biopsy done on 08/14/2023 by her coupon manifest clerk Dr. Shanta Brandon. 14 point systems were [...] referred by Dr Shanta Brandon for melanoma. [facility] Medical History Medical History (Updated 09/17/23 @ [...] signed by Fransico Campos MD> 09/17/23 1103 [facility] Work Phone: Summary Purpose Family History [...] section and content) DATE CREATED AUTHOR 07/04/2021 [facility] DATE CREATED AUTHOR AUTHOR'S ORGANIZ ATION 02/15/2022 [facility] DATE CREATED AUTHOR AUTHOR'S ORGANIZ ATION [facility]/10[facility]2023 [facility] DATE CREATED AUTHOR AUTHOR'S ORGANIZ ATION 10/12/2023 [facility] DATE CREATED AUTHOR AUTHOR'S ORGANIZ ATION 04/27/2024 [facility] EPIC DATE CREATED AUTHOR AUTHOR'S ORGANIZ ATION 05/19/2024 [facility] DATE CREATED AUTHOR AUTHOR'S ORGANIZ ATION [facility]2024 [facility] DATE CREATED AUTHOR AUTHOR'S ORGANIZ ATION 06/15/2024 [facility] Care Teams (unrecognized sec tion and [...] September 30, 2023 End: September 30, 2023 Hydro Sprayer Operator Relationship Specialty Start Date End Date Bang Aviles MD [address] [facility] [address] [place] [address] PCP - General Internal Medicine 08/20/22 Hydro Sprayer Operator Relationship Specialty Start Date End Date Bang Aviles MD [address] [facility] [address] [place] [address] PCP - General Internal Medicine 08/20/22 Hydro Sprayer Operator Relationship Specialty Start Date End Date Bang Aviles MD [address] [facility] [address] [place] [address] PCP - General Internal Medicine 08/20/22 Hydro Sprayer Operator Relationship Specialty Start Date End Date Bang Aviles MD [address] [facility] [address] [place] [address] PCP - General Internal Medicine 08/20/22 Hydro Sprayer Operator Relationship Specialty Start Date End Date Bang Aviles MD [address] [place] [address] PCP - General Internal Medicine 08/20/22 Hydro Sprayer Operator Relationship Specialty Start Date End Date Bang Aviles MD [address] [place] [address] PCP - General Internal Medicine 08/20/22 Hydro Sprayer Operator Relationship Specialty Start Date End Date Bang Aviles MD [address] [place] [address] PCP - General Internal Medicine 08/20/22 Hydro Sprayer Operator Relationship Specialty Start Date End Date Bang Aviles MD [address] [place] [address] PCP - General Internal Medicine 08/20/22 Hydro Sprayer Operator Relationship Specialty Start Date End Date Bang Aviles II, MD [address] [place] [address] PCP - General Internal Medicine 02/05/24 Hydro Sprayer Operator Relationship Specialty Start Date End Date Bang Aviles MD [address] [place] [address] PCP - General Internal Medicine 08/20/22 Goals (unrecognized section and content) Goals may [...] or prosecute any alcohol or drug abuse patient.[facility] FOR RECORDS PERTAINING TO PATIENTS WHO ARE [...] BE BASED ON THE PRIMARY CLINICAL RECORDS. [employer] [facility]. provides no warranty or guarantee of the accuracy or completeness of information in this document.
== END 2024-06-22 20:03 | disposition home or self-care (01) ==
LOC: SLEEP 20:02
PROVIDERS: PCP Internal Medicine Cardiovascular Disease; Visit Provider Internal Medicine Cardiovascular Disease
DX: G47.33 Obstructive sleep apnea (adult) (pediatric) (principal)
CPT/HCPCS: 95810

== ENCOUNTER 2024-06-29 20:03 | Outpatient (OUT) | payer OTHER, SELFPAY ==
--- OUTSIDE RECORDS SUMMARY | 2024-06-29 20:06 | XMS_ITS | CCD ---
Author Organization [facility] Inform ion [facility] Care Team Providers Care Breading Machine Tender Name Role Phone DR BANG AVILES Attending Unavailable STEFAN, DR PARIS Consulting Unavailable DR BANG AVILES Primary Care Unavailable DR BANG AVILES Admitting Unavailable ODILON Aviles Primary Care Provider [phone] MD Fransico Campos Attending Provider MD Taco [...] oral tablet (4 sources) alpha-Adrenergic Agonist, Uncompetitive U-dzentv-P-aspartate Receptor Antagonist, Sigma-1 Agonist Start: 03-18-2024 End: [...] oil (6 sources) Corticosteroid Start: 02-23-2024 fluocinolone (Upham-Smoothe) 0.01 % external oil APPLY TO AFFECTED [...] medication adjustment has helped her a lot. [facility] 36on 06-10-2024 36 LM for patient to let her know echo performed yesterday was normal. I asked her to return my call to give me an update on the LE edema s/p addition of hydrochlorothiazide. [facility] Telephoneon 06-10-2024 Telephone [id number] Juliana Neville 1965 F Date Provider Department Center 06/10/2024 AmeeALDEN THOMAS [facility] Family History Problem Relation Age of Onset No Known Problems Mother Valvular heart disease Father Atrial fibrillation Father Family Status - Relation Status Age at Mother Father [facility] CA ECHO DOPPLER COMPLETEon 0 06-09-2024 [place] [address] Cardiology Report Signed Patient: JULIANA NEVILLE MR#: [id number] : 1965 Acct:[id number] Age/Sex: 58 / F ADM Date: 06/09/24 Loc: CARD Attending Dr: ZHANNA JUNG Ordering Physician: ZHANNA JUNG Date of Service: 06/09/24 Procedure(s): CA echo doppler complete Accession Number(s): [id number] cc: ZHANNA JUNG; BANG AVILES Patient Name: JULIANA NEVILLE MR#: [id number] : 1965 Exam Date: 06/09/2024 Ordering Doctor: [...] on 06/09/2024 at 13:18 Approved by: Kilo aButista M.D. on 06/09/2024 at 13:21 (more content not included)... [facility] Radiology, Radiologist, - 06/09/2024 [place] [address] Cardiology Report Signed Patient: JULIANA NEVILLE MR#: [id number] : 1965 Acct:[id number] Age/Sex: 58 / F ADM Date: 06/09/24 Loc: CARD Attending Dr: ZHANNA JUNG Ordering Physician: ZHANNA JUNG Date of Service: 06/09/24 Procedure(s): CA echo doppler complete Accession Number(s): [id number] cc: ZHANNA JUNG; BANG AVILES Patient Name: JULIANA NEVILLE MR#: [id number] : 1965 Exam Date: 06/09/2024 Ordering Doctor: [...] Signed By: 06/09/24 1322 DD/ 1321 TD/TT: Patient Sitter: [facility] Radiology Study observation (narrative) [facility] CA ECHO DOPPLER COMPLETEOrde red By: Radiologist Radiology on 06-09-2024 [facility] Work Phone: Orders Onlyon 06-08-2024 Orders Only [id number] Juliana Neville 1965 F Date Provider Department Center 06/08/2024 Leland-AGATHA PASCUAL [facility]ARD [facility] Family History Problem Relation Age of Onset No Known Problems Mother Valvular heart disease Father Atrial fibrillation Father Family Status - Relation Status Age at Mother Father Normal [facility] CNOVon 05-20-2024 CNOV Office Visit (ENDMED) JULIANA NEVILLE ([id number]) 1965 F TRN Date Time Provider Department [...] Extremities: no (more content not included)... Normal [facility] BASIC METABOLIC PANELon BUN/CREATININE RATIO SEE NOTE: Normal 10-03 [facility] Comment on above: Order Comment: FASTI NG:NO FASTING: NO Result Comment: Not Reported: BUN and Creatinine are within reference range. Performed By: #### 9 0963 #### [facility]/[address] [place], [place] Masonry Installer: Rodolfo Vasquez M.D.,PhD #### [id number], 91403, 5081, 867, 866, 859 #### [facility] [address], [address] [place], [place] [address] Masonry Installer: Neto Patel MD Calcium [Mass/Vol] 9.4 mg/dL Normal 8.6-10.4 [facility] Comment on above: Order Comment: FASTI NG:NO FASTING: NO Performed By: #### 9 0963 #### [facility]/[address] [place], [place] Masonry Installer: Rodolfo Vasquez M.D.,PhD #### 35360, 92448, 5081, 867, 866, 859 #### [facility] [address], [address] [place], [place] [address] Masonry Installer: Neto Patel MD Chloride [Moles/Vol] 100 mmol/L Normal 98-110 [facility] Comment on above: Order Comment: FASTI NG:NO FASTING: NO Performed By: #### 9 0963 #### [facility]/[address] [place] Masonry Installer: Rodolfo Vasquez M.D.,PhD #### 76309, 11857, 5081, 867, 866, 859 #### [facility] [address], [address] [place], [place] [address] Masonry Installer: Neto Patel MD CO2 [Moles/Vol] 28 mmol/L Normal 20-32 [facility] Comment on above: Order Comment: FASTI NG:NO FASTING: NO Performed By: #### 9 0963 #### [facility]/[address] [place] Masonry Installer: Rodolfo Vasquez M.D.,PhD #### 16220, 50238, 5081, 867, 866, 859 #### [facility] [place] [address] Masonry Installer: Neto Patel MD Creatinine [Mass/Vol] 1.01 mg/dL Normal 0.50-1.03 [facility] Comment on above: Order Comment: FASTI NG:NO FASTING: NO Performed By: #### 9 0963 #### [facility]/[address] [place] Masonry Installer: Rodolfo Vasquez M.D.,PhD #### 69528, 29037, 5081, 867, 866, 859 #### [facility] [address] Masonry Installer: Neto Patel MD GFR/1.73 sq M.predicted among non-blacks MDRD (S/P/Bld) [Vol rate/Area] 65 mL/min/{1.73_m2} Normal > OR = 60 [facility] Comment on above: Order Comment: FASTI NG:NO FASTING: NO Performed By: #### 9 0963 #### [facility]/[address] [place] Masonry Installer: Rodolfo Vasquez M.D.,PhD #### 30571, 05095, 5081, 867, 866, 859 #### [facility] [place] [address] Masonry Installer: Neto Patel MD Glucose [Mass/Vol] 82 mg/dL Normal 65-139 [facility] Comment on above: Order Comment: FASTI NG:NO FASTING: NO Result Comment: Non-fasting reference interval Performed By: #### 9 0963 #### [facility]/[address] [place], [place] Masonry Installer: Rodolfo Vasquez M.D.,PhD #### 09734, 40087, 5081, 867, 866, 859 #### [facility] [place] [address] Masonry Installer: Neto Patel MD Potassium [Moles/Vol] 3.9 mmol/L Normal 3.5-5.3 [facility] Comment on above: Order Comment: FASTI NG:NO FASTING: NO Performed By: #### 9 0963 #### [facility]/[address] [place], [place] Masonry Installer: Rodolfo Vasquez M.D.,PhD #### 52638, 10749, 5081, 867, 866, 859 #### [facility] [place] [address] Masonry Installer: Neto Patel MD Sodium [Moles/Vol] 139 mmol/L Normal 135-146 [facility] Comment on above: Order Comment: FASTI NG:NO FASTING: NO Performed By: #### 9 0963 #### [facility]/[address] [place] Masonry Installer: Rodolfo Vasquez M.D.,PhD #### 15787, 35373, 5081, 867, 866, 859 #### [facility] [address], [address] [place] [address] Masonry Installer: Neto Patel MD Urea nitrogen [Mass/Vol] 13 mg/dL Normal 7-25 [facility] Comment on above: Order Comment: FASTI NG:NO FASTING: NO Performed By: #### 9 0963 #### [facility]/[place] [address] [facility] [place], [place] Masonry Installer: Rodolfo Vasquez M.D.,PhD #### 37933, 23273, 5081, 867, 866, 859 #### [facility] [address], [address] [place] [address] Masonry Installer: Neto Patle MD T3 REVERSE, LC/MS/MSon 05-17 T3 REVERSE, LC/MS/MS 19 ng/dL Normal 8-25 [facility] Comment on above: Result Comment: This test was developed and its analytical performance characteristics have been determined by [facility] [place]. It has not been cleared or approved by the U.S. Food and Drug Administration. This assay has been validated pursuant to the CLIA regulations and is used for clinical purposes. Performed By: #### 9 0963 #### [facility]/[place] [address] [facility] [place], [place] Masonry Installer: Rodolfo Vasquez M.D.,PhD #### 42919, 88369, 5081, 867, 866, 859 #### [facility] [address], [address] [place], [place] [address] Masonry Installer: Neto Patel MD T3, FREEon 05-17-2024 Free T3 [Mass/Vol] 2.8 pg/mL Normal 2.3-4.2 [facility] Comment on above: Performed By: #### 9 0963 #### [facility] [place], [place] Masonry Installer: Rodolfo Vasquez M.D.,PhD #### 80188, 04266, 5081, 867, 866, 859 #### [facility] [place] [address] Masonry Installer: Neto Patel MD T3, TOTALon 05-17-2024 T3, TOTAL 97 ng/dL Normal 76-181 [facility] Comment on above: Performed By: #### 9 0963 #### [facility]/[address] [place], [place] Masonry Installer: Rodolfo Vasquez M.D.,PhD #### 39215, 50149, 5081, 867, 866, 859 #### [facility] [place] [address] Masonry Installer: Neto Patel MD T4 (THYROXINE), TOTAL T4 [Mass/Vol] 9.9 ug/dL Normal 5.1-11.9 [facility] Comment on above: Performed By: #### 9 0963 #### [facility]/[address] [place], [place] Masonry Installer: Rodolfo Vasquez M.D.,PhD #### 76634, 31404, 5081, 867, 866, 859 #### [facility] [place] [address] Masonry Installer: Neto Patel MD T4, FREEon 05-17-2024 Free T4 [Mass/Vol] 1.3 ng/dL Normal 0.8-1.8 [facility] Comment on above: Performed By: #### 9 0963 #### [facility]/[address] [place], [place] Masonry Installer: Rodolfo Vasquez M.D.,PhD #### 06732, 03594, 5081, 867, 866, 859 #### [facility] of [address] Masonry Installer: Neto Patel MD THYROID PEROXIDASE ANTIBODIE Son 05-17-2024 THYROID PEROXIDASE ANTIBODIES 3 IU/mL Normal <9 [facility] Comment on above: Performed By: #### 9 0963 #### [facility]/[place] [address] [facility] [place] Masonry Installer: Rodolfo Vasquez M.D.,PhD #### 00995, 23371, 5081, 867, 866, 859 #### [facility] of [address], [address] [place] [address] Masonry Installer: Neto Patel MD TSHon 05-17-2024 TSH Qn 15.25 m[IU]/L High 0.40-4.50 [facility] Comment on above: Performed By: #### 9 0963 #### [facility]/[address] [place], [place] Masonry Installer: Rodolfo Vasquez M.D.,PhD #### 56242, 03501, 5081, 867, 866, 859 #### [facility] [address], [address] [place] [address] Masonry Installer: Neto Patel MD Letter (Out)on 05-04-2024 Letter (Out) [id number] Juliana Neville 1965 Date Provider Department Center 05/04/2024 None-None [facility] Family History Problem Relation Age of Onset No Known Problems Mother Valvular heart disease Father Atrial fibrillation Father Family Status - Relation Status Age at Mother Father Normal [facility] Office Visiton 04-27-2024 Follow-up visit [id number] Juliana Neville 1965 Date Provider Department Center 04/27/2024 RAE CAIN LIZZETTE [place] Family History Problem Relation Age of Onset No Known Problems Mother Valvular heart disease Father Atrial fibrillation Father Family Status - Relation Status Age at Mother Father Level of Service:41532 OR OFFICE/OUTPATIENT NEW MODERATE MDM 45 MINUTES Normal [facility] No Panel Informationon 04-21 Interpretation and review of laboratory results Normal [facility] Healthcare Rapid Influenza A Ag Negative Negative, Indeterminate [facility] Rapid Influenza B Ag Negative Negative, Indeterminate [facility] Healthcare [facility] Healthcare Physician Referralon 024 Physician Referral [phone] [id number] 1.00TIFF Normal Ravi [facility] Payam 09-30-2023 L Specimen: [id number] Received: 09/30/23 Status: JAMSHID Parks Num: [id number] Spec Type: Surgical Subm Dr: Taco Anne MD Tissues: A Skin-Other than Cyst, tag, debridement or plastic repair (RT LOWER EYELID) Procedures: HE/4, Gross/Micro L4, SOX-10 Age/ Patient Sex Location Account Attending Physician Juliana Neville 57/F [place] [id number] Taco Anne MD SPEC NUM: [id number] RECD: 09/30/23 STATUS: JAMSHID PARKS NUM: [id number] OSMIN: 09/30/[address]: Taco Anne MD ENTERED: 09/30/[address] [facility] [address]: SPEC TYPE: Surgical DEPT: S ORDERED: [...] A1: 9:00 tip A2: 3:00 tip Specimen: [id number] Received: 09/30/23 Status: VETOJorge A Parks Num: [id number] Spec Type: Surgical Subm Dr: Taco Anne MD Tissues: A Skin-Other than Cyst, tag, debridement or plastic repair (RT LOWER EYELID) Procedures: HE/4, Gross/Micro L4, SOX-10 Patient: Juliana Neville [id number] (Continued) Specimen: [id number] Received: 09/30/23 (Continued) Gross Description (Continued) Signed (signature on file) Bebe Blackwell MD 10/05/23 1744 Specimen: [id number] Received: 09/30/23 Status: JAMSHID Parks Num: [id number] Spec Type: Surgical Subm Dr: Taco Anne MD Tissues: A Skin-Other than Cyst, tag, debridement or plastic repair (RT LOWER EYELID) Procedures: , Gross/Micro L4, SOX-10 Patient: Juliana Neville [id number] (Continued) Specimen: [id number] Received: 09/30/23 (Continued) Gross Description (Continued) A3:12:00 to 6:00 region CPT Codes [id number] Specimen: [id number] Received: 09/30/23 Status: JAMSHID Parks Num: [id number] Spec Type: Surgical Subm Dr: Taco Anne MD Tissues: A Skin-Other than Cyst, tag, debridement or plastic repair (RT LOWER EYELID) Procedures: /Ela, Gross/Micro L4, SOX-10 Patient: Juliana Neville [id number] (Continued) Signed (signature on file) Bebe Blackwell MD 10/05/23 1536 Normal [facility] ESTROGENon 02-14-2022 Estrogens, Total 42 pg/mL Normal 40-244 [facility] Comment on above: Result Comment: Prep ubertal < 40 Female Cycle: 1-10 Days 16 - 328 11-20 Days 34 - 501 21-30 Days 48 - 350 Post-Menopausal 40 - 244 Performed By: #### E STROG #### [facility] [address] [place] [address] Dr. Rica Blackwell FSHon 02-09-2022 FSH 51.6 mIU/mL Normal [facility] Comment on above: Result Comment: Adul t Female: Follicular phase 3.5 - 12.5 Ovulation phase 4.7 - 21.5 Luteal phase 1.7 - 7.7 Postmenopausal 25.8 - 134.8 Performed By: #### [facility] #### [facility] [address] [place] [address] Dr. Rica Blackwell LUTEINIZING HORMONE (LH)on LH 33.9 mIU/mL Normal [facility] Comment on above: Result Comment: Adul t Female: Follicular phase 2.4 - 12.6 Ovulation phase 14.0 - 95.6 Luteal phase 1.0 - 11.4 Postmenopausal 7.7 - 58.5 Performed By: #### L BCL #### [facility] [address] [place] [address] Dr. Rica Blackwell PROGESTERONEon 02-09-2022 Progesterone <0.1 Normal [facility] Comment on above: Result Comment: Foll icular phase 0.1 - 0.9 Luteal phase 1.8 - 23.9 Ovulation phase 0.1 - 12.0 First trimester 11.0 - 44.3 Second trimester 25.4 - 83.3 Third trimester 58.7 - 214.0 Postmenopausal 0.0 - 0.1 Performed By: #### P ANNE MARIEES #### [facility] [address] [place] [address] Dr. Rica Blackwell TSHon 02-08-2022 TSH 3.424 uIU/mL Normal 0.358-3.740 [facility] Comment on above: Performed By: #### T #### [facility] [address] [place] [address] Dr. Rica Blackwell Complete Blood Count with Au to Diffon 07-03-2021 Basophils (Bld) [#/Vol] 0.07 10*3/uL Normal 0.00-0.20 [facility] Specialist Comment on above: Performed By: #### C BCAD, TSH, FT4, CMP, FT3 #### [facility] [address] [place], [place] [id number] Basophils/100 WBC (Bld) 1.4 % Normal [facility] Specialist Comment on above: Performed By: #### C BCAD, TSH, FT4, CMP, FT3 #### [facility] [address] [place], [place] [id number] Eosinophils (Bld) [#/Vol] 0.19 10*3/uL Normal 0.02-0.50 [facility] Specialist Comment on above: Performed By: #### C BCAD, TSH, FT4, CMP, FT3 #### [facility] [address] [place], [place] [id number] Eosinophils/100 WBC (Bld) 3.7 % Normal [facility] Specialist Comment on above: Performed By: #### C BCAD, TSH, FT4, CMP, FT3 #### [facility] [address] [place], [place] [id number] Erythrocyte distribution width (RBC) [Ratio] 14.3 % Normal 11.0-15.0 [facility] Special[facility] Comment on above: Performed By: #### C BCAD, TSH, FT4, CMP, FT3 #### [facility] [address] [place], [place] [id number] Hematocrit (Bld) [Volume fraction] 44.5 % Normal 35.0-47.0 [facility] [employer] Comment on above: Performed By: #### C BCAD, TSH, FT4, CMP, FT3 #### [facility] [address] [place], [place] [id number] Hemoglobin (Bld) [Mass/Vol] 14.2 g/dL Normal 11.6-15.5 [facility] [employer] Comment on above: Performed By: #### C BCAD, TSH, FT4, CMP, FT3 #### [facility] [address] [place], [place] [id number] Lymphocytes (Bld) [#/Vol] 1.6 10*3/uL Normal 0.9-3.9 [facility] Specialist Comment on above: Performed By: #### C BCAD, TSH, FT4, CMP, FT3 #### [facility] [address] [place], [place] [id number] Lymphocytes/100 WBC (Bld) 31.1 % Normal [facility] Comment on above: Performed By: #### C BCAD, TSH, FT4, CMP, FT3 #### [facility] [address] [place], [place] [id number] MCH (RBC) [Entitic mass] 27.7 pg Normal 27.0-33.0 [facility] Specialist Comment on above: Performed By: #### C BCAD, TSH, FT4, CMP, FT3 #### [facility] [address] [place], [place] [id number] MCHC (RBC) [Mass/Vol] 31.9 g/dL Low 32.0-36.0 [facility] Specialist Comment on above: Performed By: #### C BCAD, TSH, FT4, CMP, FT3 #### [facility] [address] [place], [place] [id number] MCV (RBC) [Entitic vol] 87 fL Normal 80-100 [facility] Specialist Comment on above: Performed By: #### C BCAD, TSH, FT4, CMP, FT3 #### [facility] [address] [place], [place] [id number] Monocytes (Bld) [#/Vol] 0.6 10*3/uL Normal 0.2-0.9 [facility] Specialist Comment on above: Performed By: #### C BCAD, TSH, FT4, CMP, FT3 #### [facility] [address] [place], [place] [id number] Monocytes/100 WBC (Bld) 10.8 % Normal [facility] Specialist Comment on above: Performed By: #### C BCAD, TSH, FT4, CMP, FT3 #### [facility] [address] [place], [place] [id number] Neutrophils (Bld) [#/Vol] 2.7 10*3/uL Normal 1.5-7.8 [facility] Specialist Comment on above: Performed By: #### C BCAD, TSH, FT4, CMP, FT3 #### [facility] [address] [place], [place] [id number] Neutrophils/100 WBC (Bld) 52.6 % Normal [facility] Comment on above: Performed By: #### C BCAD, TSH, FT4, CMP, FT3 #### [facility] [address] [place], [place] [id number] Platelet mean volume (Bld) [Entitic vol] 11.60 fL Normal 7.50-12.50 [facility] Specialist Comment on above: Performed By: #### C BCAD, TSH, FT4, CMP, FT3 #### [facility] [address] [place], [place] [id number] Platelets (Bld) [#/Vol] 214 10*3/uL Normal 140-400 [facility] Specialist Comment on above: Performed By: #### C BCAD, TSH, FT4, CMP, FT3 #### [facility] [address] [place], [place] [id number] RBC (Bld) [#/Vol] 5.13 10*6/uL Normal 3.90-5.20 [facility] Comment on above: Performed By: #### C BCAD, TSH, FT4, CMP, FT3 #### [facility] [address] [place], [place] [id number] RDW-SD 45.8 fL Normal 37.0-50.0 [facility] Specialist Comment on above: Performed By: #### C BCAD, TSH, FT4, CMP, FT3 #### [facility] [address] [place], [place] [id number] WBC (Bld) [#/Vol] 5.2 10*3/uL Normal 3.8-11.0 [facility] Comment on above: Performed By: #### C BCAD, TSH, FT4, CMP, FT3 #### [facility] [address] [place], [place] [id number] Comprehensive Metabolic Pane [facility] 07-03-2021 Albumin [Mass/Vol] 4.9 g/dL Normal 3.6-5.1 [facility] [employer] Comment on above: Performed By: #### C BCAD, TSH, FT4, CMP, FT3 #### [facility] [address] [place], [place] [id number] Albumin/Globulin [Mass ratio] 2.0 {ratio} Normal 1.0-2.5 [facility] Specialist Comment on above: Performed By: #### C BCAD, TSH, FT4, CMP, FT3 #### [facility] [address] [place], [place] [id number] ALP [Catalytic activity/Vol] 91 U/L Normal 35-119 [facility] Specialist Comment on above: Performed By: #### C BCAD, TSH, FT4, CMP, FT3 #### [facility] [address] [place], [place] [id number] ALT [Catalytic activity/Vol] 29 U/L Normal 6-33 [facility] Specialist Comment on above: Result Comment: 03/14 Female reference range changed. Performed By: #### C BCAD, TSH, FT4, CMP, FT3 #### [facility] [address] [place], [place] [id number] Anion gap [Moles/Vol] 21 mmol/L High 12-20 [facility] Specialist Comment on above: Result Comment: Effe ctive 04/19/2019 reference range changed. Performed By: #### C BCAD, TSH, FT4, CMP, FT3 #### [facility] [address] [place], [place] [id number] AST [Catalytic activity/Vol] 25 U/L Normal 9-34 [facility] Specialist Comment on above: Performed By: #### C BCAD, TSH, FT4, CMP, FT3 #### [facility] [address] [place], [place] [id number] Bilirubin [Mass/Vol] 0.85 mg/dL Normal 0.30-1.20 [facility] Specialist Comment on above: Performed By: #### C BCAD, TSH, FT4, CMP, FT3 #### [facility] [address] [place], [place] [id number] BUN/CREA 21 Ratio Normal 6-22 [facility] Specialist Comment on above: Performed By: #### C BCAD, TSH, FT4, CMP, FT3 #### [facility] [address] [place], [place] [id number] Calcium [Mass/Vol] 9.8 mg/dL Normal 8.6-10.2 [facility] Comment on above: Performed By: #### C BCAD, TSH, FT4, CMP, FT3 #### [facility] [address] [place], [place] [id number] Chloride [Moles/Vol] 99 mmol/L Normal 98-107 [facility] Specialist Comment on above: Performed By: #### C BCAD, TSH, FT4, CMP, FT3 #### [facility] [address] [place], [place] [id number] CO2 [Moles/Vol] 23 mmol/L Normal 20-31 [facility] Specialist Comment on above: Performed By: #### C BCAD, TSH, FT4, CMP, FT3 #### [facility] [address] [place], [place] [id number] Creatinine [Mass/Vol] 0.7 mg/dL Normal 0.6-1.4 [facility] Specialist Comment on above: Performed By: #### C BCAD, TSH, FT4, CMP, FT3 #### [facility] [address] [place], [place] [id number] eGFRAA 109 mL/min/1.73m2 Normal >60 [facility] Specialist Comment on above: Performed By: #### C BCAD, TSH, FT4, CMP, FT3 #### [facility] [address] [place], [place] [id number] eGFRNAA 90 mL/min/1.73m2 Normal >60 [facility] Specialist Comment on above: Performed By: #### C BCAD, TSH, FT4, CMP, FT3 #### [facility] [address] [place], [place] [id number] Globulin (S) [Mass/Vol] 2.5 g/dL Normal 1.9-3.7 [facility] Specialist Comment on above: Performed By: #### C BCAD, TSH, FT4, CMP, FT3 #### [facility] [address] [place], [place] [id number] Glucose [Mass/Vol] 83 mg/dL Normal 65-99 [facility] [place] [facility] Comment on above: Result Comment: For FASTING Glucose --- ADA reference ranges: Normal 65-99 mg/dl Prediabetes 100-125 Diabetes >/= 126 Performed By: #### C BCAD, TSH, FT4, CMP, FT3 #### [facility] [address] [place], [place] [id number] Potassium [Moles/Vol] 4.0 mmol/L Normal 3.5-5.5 [facility] [facility] Comment on above: Performed By: #### C BCAD, TSH, FT4, CMP, FT3 #### [facility] [address] [place], [place] [id number] Protein [Mass/Vol] 7.4 g/dL Normal 6.1-8.1 [facility] [place] [employer] [facility] Comment on above: Performed By: #### C BCAD, TSH, FT4, CMP, FT3 #### [facility] [address] [place], [place] [id number] Sodium [Moles/Vol] 139 mmol/L Normal 135-146 [facility] [place] [employer] [facility] Comment on above: Performed By: #### C BCAD, TSH, FT4, CMP, FT3 #### [facility] [address] [place], [place] [id number] Urea nitrogen [Mass/Vol] 14 mg/dL Normal 7-25 [facility] [facility] Comment on above: Performed By: #### C BCAD, TSH, FT4, CMP, FT3 #### [facility] [address] [place], [place] [id number] Free T3on 07-03-2021 FT3 2.83 pg/mL Normal 2.00-4.40 [facility] Cartridge Loader Comment on above: Performed By: #### C BCAD, TSH, FT4, CMP, FT3 #### [facility] [address] [place], [place] [id number] Free T4on 07-03-2021 Free T4 [Mass/Vol] 1.79 ng/dL Normal 0.80-1.80 Elisabet rn [place] Cartridge Loader Comment on above: Performed By: #### C BCAD, TSH, FT4, CMP, FT3 #### [facility] [address] [place], [place] [id number] TSHon 07-03-2021 TSH 1.670 uIU/mL Normal 0.400-4.500 [facility] io Cartridge Loader Comment on above: Performed By: #### C BCAD, TSH, FT4, CMP, FT3 #### [facility] [address] [place], [place] [id number] Vital Signs Date Time Vital Sign Value Performing Clinician Facility 05-20-2024 09:45-0500 Diastolic blood pressure 80 mm[Hg] Naina Thornton MD Work Phone: 05-20-2024 09:45-0500 Systolic blood pressure 123 mm[Hg] Naina Thornton MD Work Phone: 05-20-2024 08:59-0500 Body height 162.6 cm Naina Thornton MD Work Phone: 05-20-2024 08:59-0500 Body mass index (BMI) [Ratio] 50.44 kg/m2 Naina Thornton MD Work Phone: 05-20-2024 08:59-0500 Body weight 133.3 kg Naina Thornton MD Work Phone: 04-21-2024 15:37-0500 Body height 162.6 cm Sherrie Cazares AUTOMOTIVE SERVICE CASHIER Work Phone: [facility] 04-21-2024 15:37-0500 Body mass index (BMI) [Ratio] 50.74 kg/m2 Sherrie Cazares AUTOMOTIVE SERVICE CASHIER Work Phone: [facility] 04-21-2024 15:37-0500 Body weight 134.08 kg Sherrie Cazares AUTOMOTIVE SERVICE CASHIER Work Phone: [facility] 04-21-2024 15:37-0500 Diastolic blood pressure 84 mm[Hg] Sherrie Cazares AUTOMOTIVE SERVICE CASHIER Work Phone: [facility] 04-21-2024 15:37-0500 Heart rate 60 /min Sherrie Cazares AUTOMOTIVE SERVICE CASHIER Work Phone: [facility] 04-21-2024 15:37-0500 Respiratory rate 18 /min Sherrie Cazares AUTOMOTIVE SERVICE CASHIER Work Phone: [facility] 04-21-2024 15:37-0500 SaO2% (BldA) [Mass fraction] 97 % Sherrie Cazares AUTOMOTIVE SERVICE CASHIER Work Phone: [facility] 04-21-2024 15:37-0500 Systolic blood pressure 130 mm[Hg] Sherrie Cazares AUTOMOTIVE SERVICE CASHIER Work Phone: [facility] 03-18-2024 10:36-0500 Body height 162.6 cm Alba Hemmer PA Work Phone: [facility] 03-18-2024 10:36-0500 Body mass index (BMI) [Ratio] 50.26 kg/m2 Alab Hemmer PA Work Phone: [facility] 03-18-2024 10:36-0500 Body temperature 99.19 [degF] Alab Hemmer PA Work Phone: [facility] 03-18-2024 10:36-0500 Body weight 132.81 kg Alba Hemmer PA Work Phone: [facility] 03-18-2024 10:36-0500 Diastolic blood pressure 82 mm[Hg] Alba Hemmer PA Work Phone: [facility] 03-18-2024 10:36-0500 Heart rate 73 /min Alba Hemmer PA Work Phone: [facility] 03-18-2024 10:36-0500 Respiratory rate 16 /min Alba Hemmer PA Work Phone: [facility] 03-18-2024 10:36-0500 SaO2% (BldA) [Mass fraction] 97 % Alba Hemmer PA Work Phone: [facility] 03-18-2024 10:36-0500 Systolic blood pressure 132 mm[Hg] Alba Hemmer PA Work Phone: [facility] 02-16-2024 16:39-0500 Body height 162.6 cm Alba Hemmer PA Work Phone: [facility] 02-16-2024 16:39-0500 Body mass index (BMI) [Ratio] 50.46 kg/m2 Alba Hemmer PA Work Phone: [facility] 02-16-2024 16:39-0500 Body weight 133.36 kg Alba Hemmer PA Work Phone: [facility] 02-16-2024 16:39-0500 Diastolic blood pressure 94 mm[Hg] Alba Hemmer PA Work Phone: [facility] 02-16-2024 16:39-0500 Heart rate 60 /min Alba Hemmer PA Work Phone: [facility] 02-16-2024 16:39-0500 Respiratory rate 16 /min Alba Hemmer PA Work Phone: [facility] 02-16-2024 16:39-0500 SaO2% (BldA) [Mass fraction] 98 % Alba Hemmer PA Work Phone: [facility] 02-16-2024 16:39-0500 Systolic blood pressure 138 mm[Hg] Alba Hemmer PA Work Phone: [facility] 01-27-2024 14:29-0400 Body mass index (BMI) [Ratio] 49.95 kg/m2 Waldo Alexander MD Work Phone: [facility] 01-27-2024 14:29-0400 Body weight 132 kg Waldo Alexander MD Work Phone: [facility] 09-17-2023 09:58-0400 Body height 162.56 cm II Bang Aviles Work Phone: [facility] 09-17-2023 09:58-0400 Body mass index (BMI) [Ratio] 48.4 kg/m2 II Bang Aviles Work Phone: [facility] 09-17-2023 09:58-0400 Body temperature 98 [degF] II Bang Aviles Work Phone: [facility] 09-17-2023 09:58-0400 Body weight 128 kg II Bang Aviles Work Phone: [facility] 09-17-2023 09:58-0400 Diastolic blood pressure 84 mm[Hg] II Bang Aviles Work Phone: [facility] 09-17-2023 09:58-0400 Heart rate 87 /min II Bang Aviles Work Phone: [facility] 09-17-2023 09:58-0400 Respiratory rate 20 /min II Bang Aviles Work Phone: [facility] 09-17-2023 09:58-0400 SaO2% (BldA) [Mass fraction] 98 % II Bang Aviles Work Phone: [facility] 09-17-2023 09:58-0400 Systolic blood pressure 173 mm[Hg] II Bang Aviles Work Phone: [facility] Encounters Encounter Date Encounter Type Care Provider Facility Start: 06-09-2024 End: 06-09-2024 Clinisync Result Encounter Generic External Data Provider [facility] Unsolicited Start: 06-09-2024 End: 06-09-2024 Clinisync Result Encounter Generic External Data Provider [facility] External Department Unsolicited Start: 05-20-2024 End: 05-20-2024 ambulatory SELF Facility:[facility] Start: 05-20-2024 End: 05-20-2024 Patient encounter procedure Naina Thornton MD Work Phone: Endocrinology Comment on above: Hypothyroidism, unsp ecified type (Primary Dx); Elevated TSH; Atrial fibrillation, unspecified type (HCC); Abnormal weight gain; Obstructive sleep apnea; Fatigue, unspecified type Start: 05-17-2024 End: 05-17-2024 ambulatory ZHANNA [facility] Start: 04-27-2024 End: 04-27-2024 ambulatory RAE SIMON [facility] Start: 04-21-2024 End: 04-21-2024 Office outpatient visit 25 minutes Sherrie Cazares AUTOMOTIVE SERVICE CASHIER Work Phone: [facility] Comment on [...] DONOVAN Not Available Start: 10-07-2023 ambulatory Facility:[facility] Start: 10-06-2023 End: 10-06-2023 ambulatory ALBA DONOVAN Not Available Start: 09-30-2023 End: 09-30-2023 ambulatory II Bang Aviles Work Phone: [facility] Work Phone: Start: 09-30-2023 End: 09-30-2023 Departed Referred ODILON Aviles Work Phone: [facility] [place] Work Phone: Start: 09-17-2023 End: 09-17-2023 Patient encounter procedure II Bang Aviles Work Phone: [facility] Physician [facility] Ambulatory Work Phone: Start: 09-17-2023 Registered Recurring II Bang Aviles Work Phone: [facility] Acute Work Phone: Start: 09-17-2023 End: 09-17-2023 ambulatory ODILON Aviles Work Phone: [facility] Work Phone: Start: 02-08-2022 End: 02-09-[address] BANG AVILES Facility:H1 Procedures Date Procedure Procedure Detail Performing Clinician Start: 06-09-2024 CA ECHO DOPPLER COMPLETE Generic External Data Provider Start: 04-21-2024 Iaadiadoo brain Cazares AUTOMOTIVE SERVICE CASHIER Work Phone: Start: 10-25-2020 Colonoscopy Alba Gordon er PA Work Phone: Start: 07-20-2020 Mammography Alba Gordon er PA Work Phone: Plan of Treatment Date Care Activity Detail Author Start: 10-25-2030 Screening for malignant neoplasm of colon [facility] Start: 10-11-2024 Influenza vaccination Influenza Vaccine (#1) [facility] Comment on above: Postponed from 12/14/2023 (Patient Refus ed) Start: 09-21-2024 End: 09-21-2024 Follow-up encounter 09/21/2024 6:00 PM EDT [facility] Endocrinology [address] [address] Naina Thornton MD [address] [id number] 4 month virtual follow up Endocrinology Comment on above: 4 month virtual follow up Start: 05-20-2024 End: 08-19-2024 Thyrotropin [Units/volume] in Serum or Plasma THYROID STIMULATING HORMONE Lab Routine Hypothyroidism, unspecified type Expected: 05/20/2024, Expires: 08/19/2024 [facility] Work Phone: Comment on above: Expected: 05/20/2024, Expires: Start: 03-22-2024 End: 03-22-2024 Patient encounter procedure 03/22/2024 4:15 PM EST Office Visit [facility] [address] [facility] [address] [place] [id number] Bang Aviles MD [address] [facility] [address] [place], [place] [id number] [facility] Start: 03-22-2024 End: 03-22-2025 Basic metabolic 1998 panel - Serum or Plasma Basic metabolic panel Lab Routine Generalized edema Expected: 03/22/2024 (Approximate), Expires: 03/22/2025 [facility] Work Phone: Comment on above: Expected: 03/22/2024 (Approximate), Expi res: 03/22/2025 Start: 03-22-2024 End: 03-22-2025 T3, reverse T3, reverse Lab Routine ESS (euthyroid sick syndrome) Acquired hypothyroidism (CMS/HCC) Expected: 03/22/2024 (Approximate), Expires: 03/22/2025 [facility] Comment on above: Expected: 03/22/2024 (Approximate), Expi res: 03/22/2025 Start: 03-22-2024 End: 03-22-2025 Thyroid peroxidase antibody Thyroid peroxidase antibody Lab Routine Paroxysmal atrial fibrillation (CMS/HCC) ESS (euthyroid sick syndrome) Acquired hypothyroidism (CMS/HCC) Expected: 03/22/2024 (Approximate), Expires: 03/22/2025 [facility] Comment on above: Expected: 03/22/2024 (Approximate), Expi res: 03/22/2025 Start: 03-22-2024 End: 03-22-2025 Thyrotropin [Units/volume] in Serum or Plasma [facility] Comment on above: Expected: 03/22/2024 (Approximate), Expi res: 03/22/2025 Start: 03-22-2024 End: 03-22-2025 Thyroxine (T4) free [Mass/volume] in Serum or Plasma T4, free Lab Routine ESS (euthyroid sick syndrome) Acquired hypothyroidism (CMS/HCC) Expected: 03/22/2024 (Approximate), Expires: 03/22/2025 [facility] Comment on above: Expected: 03/22/2024 (Approximate), Expi res: 03/22/2025 Start: 03-22-2024 End: 03-22-2025 Triiodothyronine (T3) [Mass/volume] in Serum or Plasma T3 Lab Routine ESS (euthyroid sick syndrome) Acquired hypothyroidism (CMS/HCC) Expected: 03/22/2024 (Approximate), Expires: 03/22/2025 [facility] Comment on above: Expected: 03/22/2024 (Approximate), Expi [...] [address] [place] [address] Alba Donovan PA [address] [place] [address] Arrived [facility] Comment on above: Arrived Start: 02-16-2024 End: 02-16-2024 Patient encounter procedure 02/16/2024 4:30 PM EST Office Visit [facility] [address] [place] [address] Alba Donovan PA [address] [place] [address] Arrived [facility] Comment on above: [...] (CMS/HCC) Palpitations Expected: 02/16/2024 (Approximate), Expires: 02/15/2025 [facility] Comment on above: Expected: 02/16/2024 (Approximate), Expi res: 02/15/2025 Start: 02-16-2024 End: 02-15-2025 TSH W/REFLEX TO FT4 TSH W/REFLEX TO FT4 Lab Routine Acquired hypothyroidism (CMS/HCC) Expected: 02/16/2024 (Approximate), Expires: 02/15/2025 [facility] Work Phone: Comment on above: Expected: 02/16/2024 (Approximate), Expi res: 02/15/2025 Start: 01-27-2024 End: 03-28-2025 MR Breast - bilateral WO and W contrast IV Bilateral breast MR with and without contrast Imaging Routine Family history of breast cancer Dense breasts Fibrocystic breast changes of both breasts Expected: 01/27/2024, Expires: 03/28/2025 [facility] Comment on above: Expected: 01/27/2024, Expires: Start: 12-14-2023 Covid-19 Vaccine ( season) Covid-19 Vaccine ( season) Start: 12-14-2023 Influenza vaccination Influenza Vaccine (#1) [facility] Start: 09-17-2023 Patient referral [facility] Work Phone: Start: 07-30-2023 Screening for malignant neoplasm of cervix [facility] Start: 07-20-2021 Screening for malignant neoplasm of breast [facility] Start: 2016 Pneumococcal Vaccine: 50+ (1 of 1 - PCV) Pneumococcal Vaccine: 50+ (1 of 1 - PCV) Start: 2016 Shingrix Vaccine (1 of 2) Shingrix Vaccine (1 of 2) Start: 10-29-2011 Diabetes Screening Diabetes Screening Start: 10-29-2011 Lipid panel Lipid Screening Start: 10-29-2011 Screening for malignant neoplasm of colon Start: 10-29-1987 Screening for malignant neoplasm of cervix [facility] Start: 1985 Hepatitis B Vaccine (1 of 3 - 19+ 3-dose series) Hepatitis B Vaccine (1 of 3 - 19+ 3-dose series) Start: 1985 Urine microalbumin profile DTaP,Tdap,Td Vaccine (1 - Tdap) Start: 1984 Annual PCP Team Chronic Disease Visit Annual PCP Team Chronic Disease Visit Start: 1984 Anxiety Screening Anxiety Screening Start: 1984 BP Controlled (<130/80) BP Controlled (<130/80) [facility] in Start: 1984 Depression Screening Depression Screening Start: 1984 Hepatitis C screening Hepatitis C Screening Start: 1984 HIV screening HIV Screening Start: 1965 Screening for malignant neoplasm of colon [facility] Patient referral [facility] Work Phone: SENDOUT TEST MISCELLANEOUS [facility] SENDOUT TEST MISCELLANEOUS [facility] Lab Routine Screening for malignant neoplasm of cervix Encounter for gynecological examination without abnormal finding Ordered: 01/27/2024 [facility] Work Phone: Comment on above: Ordered: 01/27/2024 Payers Date Payer Category Payer Private Health Insurance [id number] 2023 Self-pay [id number] 2023 Private Health Insurance [id number] Private Health Insurance 1965 Unknown [id number] 2.16.84 [id number] 1966 Unknown [id number] 2.16.8 [id number] 1966 Unknown [id number] 2.16.84 [id number] 1966 Unknown [id number] 2.16.84 [id number] 1966 Unknown [id number] 2.16.84 [id number] 1966 Unknown [id number] 2.16.84 [id number] 1966 Unknown [id number] 2.16.84 [id number] 1966 Unknown [id number] 2.16.84 [id number] 1959 Self-pay [id number] Unknown [id number] 2.16.8 [id number] Unknown [id number] 2.16.8 [id number] Social History Date Type Detail Facility Start: 02-15-2016 End: 09-17-2023 Tobacco smoking status HIIS Ex-smoker (finding) [facility] Start: 1965 Sex Assigned At Female F [facility] Start: 10-06-2023 Tobacco smoking stat us [facility] Never smoked tobacco [facility] Start: 02-15-2016 End: 10-06-2023 Tobacco use and exposure Smokeless tobacco non-user [facility] Healthcare Start: 01-27-2024 End: 04-21-2024 Alcoholic beverage intake Ex-drinker (finding) [facility] Start: 01-27-2024 End: 04-21-2024 History of Social function [facility] Start: 01-27-2024 End: 04-21-2024 Tobacco use panel [facility] Start: 1965 Sex assigned at Not on file [facility] History of tobacco use Current smoker [facility] History of tobacco use Cigarette Smoker [facility] Start: 03-14-2016 Alcoholic beverage intake Current non-drinker of alcohol (finding) National Score (1-100), lower number is lower risk 76 Start: 08-13-2012 Tobacco Comment quit in 2002 [facility] [place] Clinical Notes 12-10-2023 to 05-20-2024 Naina Thornton MD - 05/20/2024 9:04 ALISON Cazares NP - 04/21/2024 3:30 PM ESTPatient InstructionsTelephone Encounter - ASAEL Broussard - 03/22/2024 4:27 PM EST Note Date & Type Note Facility 05-20-2024 Note HNO ID: [id number] Author: NAINA THORNTON MD Service: ? Author [...] and bio-chemically hypothyroid (more content not included)... [facility] 05-20-2024 History of Present illness Narrative SELF [...] a virtual visit documented in this encounter 04-27-2024 Note [place] Electrophysiology Consult Note [place] [facility] - [facility] Reason for visit: HPI: [...] Depression: Not at risk (01/27/2024) Received from [facility] PHQ-2 Patient Health Questionnaire-2 Score: 1 [...] JAIDEN eval. - (more content not included)... [facility] 04-21-2024 History of Present illness Narrative [...] CHEW, OR SPLIT. 30 tablet 1 fluocinolone (Upham-Smoothe) 0.01 % external oil APPLY TO AFFECTED [...] cyst mass - begnign Dr. Joel Hamilton Past Surgical History: Procedure Laterality Date SECTION, [...] follow-ups on file. documented in this encounter [facility] 04-21-2024 Instructions Sherrie Cazares NP - 04/21/2024 3:30 PM EST Amoxicillin ordered today. [place] DMT samples given documented in this encounter [facility] 03-22-2024 Telephone encounter Note Spoke with patient. Reviewed the above information in detail with patient. She has had issues with her heart rhythm before when her thyroid was out of whack, requesting full thyroid panel labs, states TSH is never enough for her. Ordered. She is agreeable to new medications for the time being. [facility] 03-22-2024 Miscellaneous Notes Spoke with patient. [...] to return call. documented in this encounter [facility] 03-22-2024 Telephone encounter Note Need to [...] insurance. LM for pt to return call. [facility] 03-18-2024 History of Present illness Narrative [...] to Visit Medication Sig Dispense Refill fluocinolone (Upham-Smoothe) 0.01 % external oil APPLY TO AFFECTED [...] cyst mass - begnign Dr. Joel Hamilton Past Surgical History: Procedure Laterality Date SECTION, [...] this visit: Acute non-recurrent frontal sinusitis - [id number]-[id number] 60-15-400 MG tablet; Take 1 tablet by [...] Appointment As Scheduled. documented in this encounter [facility] 02-16-2024 History of Present illness Narrative [...] cyst mass - begnign Dr. Joel Hamilton Past Surgical History: Procedure Laterality Date SECTION, [...] order to have Holter Monitor placed at [facility] for 7 days for further evaluation of current symptoms. Follow up in about 4 weeks (around 03/15/2024) for Medication Follow Up. documented in this encounter [facility] 01-27-2024 History of Present illness Narrative Images from the original note were not included. 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 documented in this encounter [facility] 12-10-2023 Telephone encounter Note Paxil sent in for patient. [facility] 12-10-2023 Miscellaneous Notes Paxil sent in [...] her please advise documented in this encounter [facility] 12-10-2023 Telephone encounter Note Pt stated she only used this for Three weeks , she had a very loud roaring in her ears ,stated she had the same problem the last time she tried this a few years ago [facility] 12-10-2023 Telephone encounter Note Pt lm on stating she discontinued celexa due to side effects, but she is wondering if there is something similar that could be sent in for her please advise [facility] Evaluation note Diagnosis Onset Date Malignant melanoma in situ a [facility] Work Phone: Evaluation note* Diagnosis Family [...] Fatigue, unspecified type documented in this encounter Progress note Author Fransico Campos [facility] September 17, 2023 11:03am Note Date/Time September 17, 2023 9:54a m [facility] [place] [address] Cancer Center Note Signed Patient: Juliana Neville MR#: [id number] : 1965 Acct:[id number] Age/Sex: 57 / F Type: REG AMB Date of Service: 09/17/23 Copies to: MD Shanta Gamboa II, MD~ Assessment & Plan A/P (1) Malignant melanoma in situ: Plan At this point patient had 1 cm hyperpigmented macule on the right superior cheekjust below her right eyelid. Patient status post shave skin biopsy done on 08/14/2023 by her personnel security assistant which revealed malignant melanoma in situ with [...] therefore she underwent a biopsy by her personnel security assistant on 08/14/2023 which revealed malignant melanoma in [...] shave biopsy done on 08/14/2023 by her personnel security assistant Dr. Shanta Brandon. 14 point systems were [...] Dr Shanta Brandon for melanoma. [facility] Medical History Medical History (Updated 09/17/23 @ [...] signed by Fransico Campos MD> 09/17/23 1103 [facility] Work Phone: Summary Purpose Family [...] section and content) DATE CREATED AUTHOR 07/04/2021 [facility] dical Specialist DATE CREATED AUTHOR AUTHOR'S ORGANIZ ATION 02/15/2022 [facility] DATE CREATED AUTHOR AUTHOR'S ORGANIZ ATION 10/10/2023 [place] [facility] DATE CREATED AUTHOR AUTHOR'S ORGANIZ ATION 10/12/2023 [facility] DATE CREATED AUTHOR AUTHOR'S ORGANIZ ATION 04/27/2024 [facility] Specialists EPIC DATE CREATED AUTHOR AUTHOR'S ORGANIZ ATION 05/19/2024 [facility] DATE CREATED AUTHOR AUTHOR'S ORGANIZ ATION [facility]20[facility] DATE CREATED AUTHOR AUTHOR'S ORGANIZ ATION 06/15/2024 [facility] Care Teams (unrecognized sec tion and content) [...] September 30, 2023 End: September 30, 2023 Breading Machine Tender Relationship Specialty Start Date End Date Bang Aviles MD [address] [facility] [address] [place] [address] PCP - General Internal Medicine 08/20/22 Breading Machine Tender Relationship Specialty Start Date End Date Bang Aviles MD [address] [facility] [address] [place] [address] PCP - General Internal Medicine 08/20/22 Breading Machine Tender Relationship Specialty Start Date End Date Bang Aviles MD [address] [facility] [address] [place] [address] PCP - General Internal Medicine 08/20/22 Breading Machine Tender Relationship Specialty Start Date End Date Bang Aviles MD [address] [facility] [address] [place] [address] PCP - General Internal Medicine 08/20/22 Breading Machine Tender Relationship Specialty Start Date End Date Bang Aviles MD [address] [place] [address] PCP - General Internal Medicine 08/20/22 Breading Machine Tender Relationship Specialty Start Date End Date Bang Aviles MD [address] [place] [address] PCP - General Internal Medicine 08/20/22 Breading Machine Tender Relationship Specialty Start Date End Date Bang Aviles MD [address] [place] [address] PCP - General Internal Medicine 08/20/22 Breading Machine Tender Relationship Specialty Start Date End Date Bang Aviles MD [address] [place] [address] PCP - General Internal Medicine 08/20/22 Breading Machine Tender Relationship Specialty Start Date End Date Bang Aviles II, MD [address] [place] [address] PCP - General Internal Medicine 02/05/24 Breading Machine Tender Relationship Specialty Start Date End Date Bang Aviles MD [address] [place] [address] PCP - General Internal Medicine 08/20/22 Goals [...] or prosecute any alcohol or drug abuse patient. FOR RECORDS PERTAINING TO PATIENTS WHO ARE [...] BE BASED ON THE PRIMARY CLINICAL RECORDS. [facility]. provides no warranty or guarantee of the accuracy or completeness of information in this document.
== END 2024-06-29 20:04 | disposition home or self-care (01) ==
LOC: SLEEP 20:03
PROVIDERS: PCP Internal Medicine Cardiovascular Disease; Visit Provider Internal Medicine Cardiovascular Disease
DX: G47.33 Obstructive sleep apnea (adult) (pediatric) (principal)
CPT/HCPCS: 95811

== ENCOUNTER 2024-07-29 09:48 | Emergency (ER) | payer OTHER, SELFPAY ==
[2024-07-29] VITALS (12 sets, daily range): BP systolic 121–164; BP diastolic 55–94; PULSE 53–66; TEMP 37.1; O2SAT 97–100; BMI 50.6
--- OUTSIDE RECORDS SUMMARY | 2024-07-29 10:01 | XMS_ITS | CCD ---
Author Organization [facility] Care Team Providers Care Nurse Administrator Name Role Phone DR BANG AVILES Attending [...] DONALD MD, Daniel B Primary Care Provider NAINA THORNTON Attending Unavailable SELF Referring BANG Carrasco II Primary Care Unavailable ZHANNA JUNG Attending Unavailable RAE APPIAH Attending Unavailable RAE APPIAH Attending Unavailable Allergies Allergy Classification Reported Allergen(s) [...] Start: 02-16-2024 take 1 tablet by preeti once daily buPROPion SR (Wellbutrin SR) 100 MG 12 hr tablet Indications: Anxiety about health Take 1 tablet (100 mg) by mouth Daily Do not crush, chew, or split. 30 tablet 1 02/16/2024 Active dextromethorphan hydrobromide 15 mg / guaiFENesin 400 mg / pseudoephedrine hydrochloride 60 mg oral tablet (4 sources) alpha-Adrenergic Agonist, Uncompetitive P-filubu-V-aspartate Receptor Antagonist, Sigma-1 Agonist Start: 03-18-2024 End: [...] Active docusate sodium 50 mg / sennosides, penitentiary 8.6 mg oral tablet (12 sources) take [...] oil (6 sources) Corticosteroid Start: 02-23-2024 fluocinolone ([place]) 0.01 % external oil APPLY TO AFFECTED [...] Name Value Interpretation Reference Range Facil ity CNCOon 06-29-2024 CNCO Letter Text Letter Text Letter Text Normal [facility] 36on 06-14-2024 36 Patient called back and said she took the diuretic for about 1.5 weeks because it didn't do anything for her. She said she thinks her thyroid medication adjustment has helped her a lot. Normal [facility] 36on 06-10-2024 36 LM for patient to let her know echo performed yesterday was normal. I asked her to return my call to give me an update on the LE edema s/p addition of hydrochlorothiazide. Normal [facility] Telephoneon 06-10-2024 Telephone [id number] Juliana Neville 1965 F Date Provider Department Center 06/10/2024 CorinaALDEN THOMAS [facility] Family History Problem Relation Age of Onset No Known Problems Mother Valvular heart disease Father Atrial fibrillation Father Family Status - Relation Status Age at Mother Father [facility] CA ECHO DOPPLER COMPLETEon 0 06-09-2024 [place] [address] Cardiology Report Signed Patient: JULIANA NEVILLE MR#: [id number] : 1965 Acct:[id number] Age/Sex: 58 / F ADM Date: 06/09/24 Loc: CARD Attending Dr: ZHANNA JUNG Ordering Physician: ZHANNA JUNG Date of Service: 06/09/24 Procedure(s): CA echo doppler complete Accession Number(s): [id number] cc: ZHANNA JUNG; BANG AVILES Patient Name: JULIANA NEVILLE MR#: [id number] : 1965 Exam Date: 06/09/2024 Ordering Doctor: [...] 06/09/2024 at 13:21 (more content not included)... 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: [facility] Radiology Study observation (narrative) [facility] CA ECHO DOPPLER COMPLETEOrde red By: Radiologist Radiology on 06-09-2024 [facility] Work Phone: Orders Onlyon 06-08-2024 Orders Only [id number] Juliana Neville 1965 F Date Provider Department Center 06/08/2024 AGATHA CHAU[facility]AN [facility] Family History Problem Relation Age of Onset No Known Problems Mother Valvular heart disease Father Atrial fibrillation Father Family Status - Relation Status Age at Mother Father Normal [facility] CNBRENNAon 05-20-2024 CNOV Office Visit (KARTHIKEYAN) JULIANA NEVILLE ([id number]) 1965 F TRN Date Time Provider Department [...] Extremities: no (more content not included)... Normal [facility] BASIC METABOLIC PANELon BUN/CREATININE RATIO SEE NOTE: Normal 10-03 [facility] Comment on above: Order Comment: FASTI NG:NO FASTING: NO Result Comment: Not Reported: BUN and Creatinine are within reference range. Performed By: #### 9 0963 #### [facility]/[address] [place] [address] Nuclear Radiologist: Rodolfo Vasquez M.D.,PhD #### 93941, 70995, 5081, 867, 866, 859 #### [facility] [place] [id number] Nuclear Radiologist: Neto Patel MD Calcium [Mass/Vol] 9.4 mg/dL Normal 8.6-10.4 [facility] Comment on above: Order Comment: FASTI NG:NO FASTING: NO Performed By: #### 9 0963 #### [facility]/[address] [place] [address] Nuclear Radiologist: Rodolfo Vasquez M.D.,PhD #### 53273, 38095, 5081, 867, 866, 859 #### [facility] [address], [address] [place], [place] [address] Nuclear Radiologist: Neto Patel MD Chloride [Moles/Vol] 100 mmol/L Normal 98-110 [facility] Comment on above: Order Comment: FASTI NG:NO FASTING: NO Performed By: #### 9 0963 #### [facility]/[address] [place], [place] Nuclear Radiologist: Rodolfo Vasquez M.D.,PhD #### 09373, 74186, 5081, 867, 866, 859 #### [facility] [address], [address] [place] [address] Nuclear Radiologist: Neto Patel MD CO2 [Moles/Vol] 28 mmol/L Normal 20-32 [facility] Comment on above: Order Comment: FASTI NG:NO FASTING: NO Performed By: #### 9 0963 #### [facility]/[address] [place], [place] Nuclear Radiologist: Rodolfo Vasquez M.D.,PhD #### 07400, 84264, 5081, 867, 866, 859 #### [facility] [address], [address] [place] [address] Nuclear Radiologist: Neto Patel MD Creatinine [Mass/Vol] 1.01 mg/dL Normal 0.50-1.03 [facility] Comment on above: Order Comment: FASTI NG:NO FASTING: NO Performed By: #### 9 0963 #### [facility]/[address] [place], [place] Nuclear Radiologist: Rodolfo Vasquez M.D.,PhD #### 63232, 64668, 5081, 867, 866, 859 #### [facility] [place] [address] Nuclear Radiologist: Neto Patel MD GFR/1.73 sq M.predicted among non-blacks MDRD (S/P/Bld) [Vol rate/Area] 65 mL/min/{1.73_m2} Normal > OR = 60 [facility] Comment on above: Order Comment: FASTI NG:NO FASTING: NO Performed By: #### 9 0963 #### [facility]/[address] [place] Nuclear Radiologist: Rodolfo Vasquez M.D.,PhD #### 88891, 82634, 5081, 867, 866, 859 #### [facility] [address], [address] [place] [address] Nuclear Radiologist: Neto Patel MD Glucose [Mass/Vol] 82 mg/dL Normal 65-139 [facility] Comment on above: Order Comment: FASTI NG:NO FASTING: NO Result Comment: Non-fasting reference interval Performed By: #### 9 0963 #### [facility]/[address] [place] Nuclear Radiologist: Rodolfo Vasquez M.D.,PhD #### 33857, 77945, 5081, 867, 866, 859 #### [facility] [address], [address] [place] [address] Nuclear Radiologist: Neto Patel MD Potassium [Moles/Vol] 3.9 mmol/L Normal 3.5-5.3 [facility] Comment on above: Order Comment: FASTI NG:NO FASTING: NO Performed By: #### 9 0963 #### [facility]/[address] [place] Nuclear Radiologist: Rodolfo Vasquez M.D.,PhD #### 11227, 57427, 5081, 867, 866, 859 #### [facility] [address], [address] [place] [address] Nuclear Radiologist: Neto Patel MD Sodium [Moles/Vol] 139 mmol/L Normal 135-146 [facility] Comment on above: Order Comment: FASTI NG:NO FASTING: NO Performed By: #### 9 0963 #### [facility]/[address] [place] Nuclear Radiologist: Rodolfo Vasquez M.D.,PhD #### 50003, 86991, 5081, 867, 866, 859 #### [facility] [address], [address] [place] [address] Nuclear Radiologist: Neto Patel MD Urea nitrogen [Mass/Vol] 13 mg/dL Normal 7-25 [facility] Comment on above: Order Comment: FASTI NG:NO FASTING: NO Performed By: #### 9 0963 #### [facility] [address] [facility] [place], [place] Nuclear Radiologist: Rodolfo Vasquez M.D.,PhD #### 54144, 73642, 5081, 867, 866, 859 #### [facility] [address], [address] [place] [address] Nuclear Radiologist: Neto Patel MD Office Visiton 05-17-2024 Follow-up visit [id number] Juliana Neville 1965 F Date Provider Department [place] 05/17/2024 3848-ZHANNA JUNG [facility] Family History Problem Relation Age of Onset No Known Problems Mother Valvular heart disease Father Atrial fibrillation Father Family Status - Relation Status Age at Mother Father Level of Service:48414 SC OFFICE/OUTPATIENT ESTABLISHED MOD MDM 30 MIN Normal [facility] T3 REVERSE, LC/MS/MSon 05-17 T3 REVERSE, LC/MS/MS 19 ng/dL Normal 8-25 [facility] Comment on above: Result Comment: This test was developed and its analytical performance characteristics have been determined by [facility] [place], [place]. It has not been cleared or approved by the U.S. Food and Drug Administration. This assay has been validated pursuant to the CLIA regulations and is used for clinical purposes. Performed By: #### 9 0963 #### [facility] [address] [facility] [place], [place] Nuclear Radiologist: Rodolfo Vasquez M.D.,PhD #### 05833, 38148, 5081, 867, 866, 859 #### [facility] of [place] [address] [place] , [address] [place] [address] Nuclear Radiologist: Neto Patel MD T3, FREEon 05-17-2024 Free T3 [Mass/Vol] 2.8 pg/mL Normal 2.3-4.2 [facility] Comment on above: Performed By: #### 9 0963 #### [facility]/[address] [place], [place] Nuclear Radiologist: Rodolfo Vasquez M.D.,PhD #### 26415, 88376, 5081, 867, 866, 859 #### [facility] of [place] [address] Nuclear Radiologist: Neto Patel MD T3, TOTALon 05-17-2024 T3, TOTAL 97 ng/dL Normal 76-181 [facility] Comment on above: Performed By: #### 9 0963 #### [facility]/[address] [place], [place] Nuclear Radiologist: Rodolfo Vasquez M.D.,PhD #### 99007, 77755, 5081, 867, 866, 859 #### [facility] of [place] [address] Nuclear Radiologist: Neto Patel MD T4 (THYROXINE), TOTAL T4 [Mass/Vol] 9.9 ug/dL Normal 5.1-11.9 [facility] Comment on above: Performed By: #### 9 0963 #### [facility]/[address] [place], [place] Nuclear Radiologist: Rodolfo Vasquez M.D.,PhD #### 32801, 66859, 5081, 867, 866, 859 #### [facility] of [place] [address] Nuclear Radiologist: Neto Patel MD T4, FREEon 05-17-2024 Free T4 [Mass/Vol] 1.3 ng/dL Normal 0.8-1.8 [facility] Comment on above: Performed By: #### 9 0963 #### [facility]/[address] [place], [place] Nuclear Radiologist: Rodolfo Vasquez M.D.,PhD #### 20521, 54525, 5081, 867, 866, 859 #### [facility] of [address], [address] [place] [address] Nuclear Radiologist: Neto Patel MD THYROID PEROXIDASE ANTIBODIE Son 05-17-2024 THYROID PEROXIDASE ANTIBODIES 3 IU/mL Normal <9 [facility] Comment on above: Performed By: #### 9 0963 #### [facility]/[address] [place], [place] Nuclear Radiologist: Rodolfo Vasquez M.D.,PhD #### 97137, 86375, 5081, 867, 866, 859 #### [facility] [place] [address] Nuclear Radiologist: Neto Patel MD TSHon 05-17-2024 TSH Qn 15.25 m[IU]/L High 0.40-4.50 [facility] Comment on above: Performed By: #### 9 0963 #### [facility]/[address] [place], [place] Nuclear Radiologist: Rodolfo Vasquez M.D.,PhD #### 75930, 97041, 5081, 867, 866, 859 #### [facility] [place] [address] Nuclear Radiologist: eNto Patel MD Letter (Out)on 05-04-2024 Letter (Out) [id number] Juliana Neville 1965 F Date Provider Department Center 05/04/2024 None-None [facility] Family History Problem Relation Age of Onset No Known Problems Mother Valvular heart disease Father Atrial fibrillation Father Family Status - Relation Status Age at Mother Father Normal [facility] Office Visiton 04-27-2024 Follow-up visit [id number] Juliana Neville 1965 F Date Provider Department Center 04/27/2024 Graciela-RAE APPIAH [facility] Family History Problem Relation Age of Onset No Known Problems Mother Valvular heart disease Father Atrial fibrillation Father Family Status - Relation Status Age at Mother Father Level of Service:55161 SC OFFICE/OUTPATIENT NEW MODERATE MDM 45 MINUTES Normal [facility] No Panel Informationon 04-21 Interpretation and review of laboratory results Normal [facility] Rapid Influenza A Ag Negative Negative, Indeterminate [facility] Rapid Influenza B Ag Negative Negative, Indeterminate [facility] Physician Referralon 024 Physician Referral [phone] [id number] 1.00TIFF Normal [facility] Payam 09-30-2023 L Specimen: [id number] Received: 09/30/23 Status: JAMSHID Parks Num: [id number] Spec Type: Surgical Subm Dr: Taco Anne MD Tissues: A Skin-Other than Cyst, tag, debridement or plastic repair (RT LOWER EYELID) Procedures: HE/4, Gross/Micro L4, SOX-10 Age/ Patient Sex Location Account Attending Physician Juliana Neville 57/F [place] [id number] Taco Anne MD SPEC NUM: [id number] RECD: 09/30/23 STATUS: JAMSHID PARKS NUM: [id number] OSMIN: 09/30/[address]: Taco Anne MD ENTERED: 09/30/[address] [facility] DR: SPEC TYPE: Surgical [...] A1: 9:00 tip A2: 3:00 tip Specimen: [id number] Received: 09/30/23 Status: JAMSHID Parks Num: [id number] Spec Type: Surgical Subm Dr: Taco Anne MD Tissues: A Skin-Other than Cyst, tag, debridement or plastic repair (RT LOWER EYELID) Procedures: HE/4, Gross/Micro L4, SOX-10 Patient: Juliana [id number] (Continued) Specimen: [id number] Received: 09/30/23 (Continued) Gross Description (Continued) Signed (signature on file) Bebe Blackwell MD 10/05/23 174 Specimen: [id number] Received: 09/30/23 Status: JAMSHID Parks Num: [id number] Spec Type: Surgical Subm Dr: Taco Anne MD Tissues: A Skin-Other than Cyst, tag, debridement or plastic repair (RT LOWER EYELID) Procedures: La ALEXIS/Hansa L4, SOX-10 Patient: JaminJuliana [id number] (Continued) Specimen: [id number] Received: 09/30/23 (Continued) Gross Description (Continued) A3:12:00 to 6:00 region CPT Codes [id number] Specimen: [id number] Received: 09/30/23 Status: JAMSHID Parks Num: [id number] Spec Type: Surgical Subm Dr: Taco Anne MD Tissues: A Skin-Other than Cyst, tag, debridement or plastic repair (RT LOWER EYELID) Procedures: HE/Ela, Gross/Micro L4, SOX-10 Patient: Juliana Neville [id number] (Continued) Signed (signature on file) Bebe Blackwell MD 10/05/23 1744 Normal [facility] ESTROGENon 02-14-2022 Estrogens, Total 42 pg/mL Normal 40-244 [facility] Comment on above: Result Comment: Prep ubertal < 40 Female Cycle: 1-10 Days 16 - 328 11-20 Days 34 - 501 21-30 Days 48 - 350 Post-Menopausal 40 - 244 Performed By: #### E MARTYG #### [facility] [address] [place] [address] Dr. Rica Blackwell FSHon 02-09-2022 FSH 51.6 mIU/mL Normal [facility] Comment on above: Result Comment: Adul t Female: Follicular phase 3.5 - 12.5 Ovulation phase 4.7 - 21.5 Luteal phase 1.7 - 7.7 Postmenopausal 25.8 - 134.8 Performed By: #### L [facility] #### [facility] [address] [place] [address] Dr. Rica Blackwell LUTEINIZING HORMONE (LH)on LH 33.9 mIU/mL Normal [facility] Comment on above: Result Comment: Adul t Female: Follicular phase 2.4 - 12.6 Ovulation phase 14.0 - 95.6 Luteal phase 1.0 - 11.4 Postmenopausal 7.7 - 58.5 Performed By: #### L BCL #### [facility] [address] [place] [address] Dr. Rica Blackwell PROGESTERONEon 02-09-2022 Progesterone <0.1 Normal [facility] Comment on above: Result Comment: Foll icular phase 0.1 - 0.9 Luteal phase 1.8 - 23.9 Ovulation phase 0.1 - 12.0 First trimester 11.0 - 44.3 Second trimester 25.4 - 83.3 Third trimester 58.7 - 214.0 Postmenopausal 0.0 - 0.1 Performed By: #### P ROGES #### [facility] [address] [place], [place] [address] Dr. Rica Blackwell TSHon 02-08-2022 TSH 3.424 uIU/mL Normal 0.358-3.740 [facility] Comment on above: Performed By: #### T SH #### [facility] [address] [place] [address] [address] Rica Blackwell Complete Blood Count with Au to Diffon 07-03-2021 Basophils (Bld) [#/Vol] 0.07 10*3/uL Normal 0.00-0.20 [facility] Comment on above: Performed By: #### C BCAD, TSH, FT4, CMP, FT3 #### [facility] [address] [place], [place] [id number] Basophils/100 WBC (Bld) 1.4 % Normal [facility] Comment on above: Performed By: #### C BCAD, TSH, FT4, CMP, FT3 #### [facility] [address] [place], [place] [id number] Eosinophils (Bld) [#/Vol] 0.19 10*3/uL Normal 0.02-0.50 [facility] Comment on above: Performed By: #### C BCAD, TSH, FT4, CMP, FT3 #### [facility] [address] [place], [place] [id number] Eosinophils/100 WBC (Bld) 3.7 % Normal [facility] Animal Science Professor Comment on above: Performed By: #### C BCAD, TSH, FT4, CMP, FT3 #### [facility] [address] [place], [place] [id number] Erythrocyte distribution width (RBC) [Ratio] 14.3 % Normal 11.0-15.0 [facility] Animal Science Professor Comment on above: Performed By: #### C BCAD, TSH, FT4, CMP, FT3 #### [facility] [address] [place], [place] [id number] Hematocrit (Bld) [Volume fraction] 44.5 % Normal 35.0-47.0 [facility] Animal Science Professor Comment on above: Performed By: #### C BCAD, TSH, FT4, CMP, FT3 #### [facility] [address] [place], [place] [id number] Hemoglobin (Bld) [Mass/Vol] 14.2 g/dL Normal 11.6-15.5 [facility] Comment on above: Performed By: #### C BCAD, TSH, FT4, CMP, FT3 #### [facility] [address] [place], [place] [id number] Lymphocytes (Bld) [#/Vol] 1.6 10*3/uL Normal 0.9-3.9 [facility] Comment on above: Performed By: #### C BCAD, TSH, FT4, CMP, FT3 #### [facility] [address], [place] [id number] Lymphocytes/100 WBC (Bld) 31.1 % Normal [facility] Comment on above: Performed By: #### C BCAD, TSH, FT4, CMP, FT3 #### [facility] [address] [place], [place] [id number] MCH (RBC) [Entitic mass] 27.7 pg Normal 27.0-33.0 [facility] Comment on above: Performed By: #### C BCAD, TSH, FT4, CMP, FT3 #### [facility] [address] [place], [place] [id number] MCHC (RBC) [Mass/Vol] 31.9 g/dL Low 32.0-36.0 [facility] Comment on above: Performed By: #### C BCAD, TSH, FT4, CMP, FT3 #### [facility] [address] [place], [place] [id number] MCV (RBC) [Entitic vol] 87 fL Normal 80-100 [facility] Comment on above: Performed By: #### C BCAD, TSH, FT4, CMP, FT3 #### [facility] [address] [place], [place] [id number] Monocytes (Bld) [#/Vol] 0.6 10*3/uL Normal 0.2-0.9 [facility] Comment on above: Performed By: #### C BCAD, TSH, FT4, CMP, FT3 #### [facility] [address], [place] [id number] Monocytes/100 WBC (Bld) 10.8 % Normal [facility] Comment on above: Performed By: #### C BCAD, TSH, FT4, CMP, FT3 #### [facility] [address], [place] [id number] Neutrophils (Bld) [#/Vol] 2.7 10*3/uL Normal 1.5-7.8 [facility] Comment on above: Performed By: #### C BCAD, TSH, FT4, CMP, FT3 #### [facility] [address], [place] [id number] Neutrophils/100 WBC (Bld) 52.6 % Normal [facility] Comment on above: Performed By: #### C BCAD, TSH, FT4, CMP, FT3 #### [facility] [address], [place] [id number] Platelet mean volume (Bld) [Entitic vol] 11.60 fL Normal 7.50-12.50 [facility] Comment on above: Performed By: #### C BCAD, TSH, FT4, CMP, FT3 #### [facility] [address], [place] [id number] Platelets (Bld) [#/Vol] 214 10*3/uL Normal 140-400 [facility] Comment on above: Performed By: #### C BCAD, TSH, FT4, CMP, FT3 #### [facility] [address], [place] [id number] RBC (Bld) [#/Vol] 5.13 10*6/uL Normal 3.90-5.20 [facility] Comment on above: Performed By: #### C BCAD, TSH, FT4, CMP, FT3 #### [facility] [address], [place] [id number] RDW-SD 45.8 fL Normal 37.0-50.0 [facility] Comment on above: Performed By: #### C BCAD, TSH, FT4, CMP, FT3 #### [facility] [address], [place] [id number] WBC (Bld) [#/Vol] 5.2 10*3/uL Normal 3.8-11.0 [facility]is[facility]et [facility] [place] Animal Science Professor Comment on above: Performed By: #### C BCAD, TSH, FT4, CMP, FT3 #### [facility] [address], [place] [id number] Comprehensive Metabolic Pane payam 07-03-2021 Albumin [Mass/Vol] 4.9 g/dL Normal 3.6-5.1 Elisabet rn [place] Animal Science Professor Comment on above: Performed By: #### C BCAD, TSH, FT4, CMP, FT3 #### [facility] [address], [place] [id number] Albumin/Globulin [Mass ratio] 2.0 {ratio} Normal 1.0-2.5 [facility] Comment on above: Performed By: #### C BCAD, TSH, FT4, CMP, FT3 #### [facility] [address], [place] [id number] ALP [Catalytic activity/Vol] 91 U/L Normal 35-119 [facility] Comment on above: Performed By: #### C BCAD, TSH, FT4, CMP, FT3 #### [facility] [address], [place] [id number] ALT [Catalytic activity/Vol] 29 U/L Normal 6-33 [facility] Comment on above: Result Comment: 03/14 Female reference range changed. Performed By: #### C BCAD, TSH, FT4, CMP, FT3 #### [facility] [address], [place] [id number] Anion gap [Moles/Vol] 21 mmol/L High 12-20 [facility] Comment on above: Result Comment: Effe ctive 04/19/2019 reference range changed. Performed By: #### C BCAD, TSH, FT4, CMP, FT3 #### [facility] [address], [place] [id number] AST [Catalytic activity/Vol] 25 U/L Normal 9-34 [facility] Comment on above: Performed By: #### C BCAD, TSH, FT4, CMP, FT3 #### [facility] [address], [place] [id number] Bilirubin [Mass/Vol] 0.85 mg/dL Normal 0.30-1.20 [facility] Comment on above: Performed By: #### C BCAD, TSH, FT4, CMP, FT3 #### [facility] [address], [place] [id number] BUN/CREA 21 Ratio Normal 6-22 [facility] Comment on above: Performed By: #### C BCAD, TSH, FT4, CMP, FT3 #### [facility] [address], [place] [id number] Calcium [Mass/Vol] 9.8 mg/dL Normal 8.6-10.2 [facility] Comment on above: Performed By: #### C BCAD, TSH, FT4, CMP, FT3 #### [facility] [address], [place] [id number] Chloride [Moles/Vol] 99 mmol/L Normal 98-107 [facility] Comment on above: Performed By: #### C BCAD, TSH, FT4, CMP, FT3 #### [facility] [address], [place] [id number] CO2 [Moles/Vol] 23 mmol/L Normal 20-31 [facility] Comment on above: Performed By: #### C BCAD, TSH, FT4, CMP, FT3 #### [facility] [address], [place] [id number] Creatinine [Mass/Vol] 0.7 mg/dL Normal 0.6-1.4 [facility] Comment on above: Performed By: #### C BCAD, TSH, FT4, CMP, FT3 #### [facility] [address], [place] [id number] eGFRAA 109 mL/min/1.73m2 Normal >60 [facility] Comment on above: Performed By: #### C BCAD, TSH, FT4, CMP, FT3 #### [facility] [address], [place] [id number] eGFRNAA 90 mL/min/1.73m2 Normal >60 [facility] Comment on above: Performed By: #### C BCAD, TSH, FT4, CMP, FT3 #### [facility] [address], [place] [id number] Globulin (S) [Mass/Vol] 2.5 g/dL Normal 1.9-3.7 [facility] Animal Science Professor Comment on above: Performed By: #### C BCAD, TSH, FT4, CMP, FT3 #### [facility] [address], [place] [id number] Glucose [Mass/Vol] 83 mg/dL Normal 65-99 [facility] Animal Science Professor Comment on above: Result Comment: For FASTING Glucose --- ADA reference ranges: Normal 65-99 mg/dl Prediabetes 100-125 Diabetes >/= 126 Performed By: #### C BCAD, TSH, FT4, CMP, FT3 #### [facility] [address], [place] [id number] Potassium [Moles/Vol] 4.0 mmol/L Normal 3.5-5.5 [facility] [facility] Animal Science Professor Comment on above: Performed By: #### C BCAD, TSH, FT4, CMP, FT3 #### [facility] [address], [place] [id number] Protein [Mass/Vol] 7.4 g/dL Normal 6.1-8.1 [facility] Animal Science Professor Comment on above: Performed By: #### C BCAD, TSH, FT4, CMP, FT3 #### [facility] [address], [place] [id number] Sodium [Moles/Vol] 139 mmol/L Normal 135-146 [facility] Animal Science Professor Comment on above: Performed By: #### C BCAD, TSH, FT4, CMP, FT3 #### [facility] [address], [place] [id number] Urea nitrogen [Mass/Vol] 14 mg/dL Normal 7-25 [facility] Animal Science Professor Comment on above: Performed By: #### C BCAD, TSH, FT4, CMP, FT3 #### [facility] [address], [place] [id number] Free T3on 07-03-2021 FT3 2.83 pg/mL Normal 2.00-4.40 [facility] Animal Science Professor Comment on above: Performed By: #### C BCAD, TSH, FT4, CMP, FT3 #### [facility] [address], [place] [id number] Free T4on 07-03-2021 Free T4 [Mass/Vol] 1.79 ng/dL Normal 0.80-1.80 [facility] Animal Science Professor Comment on above: Performed By: #### C BCAD, TSH, FT4, CMP, FT3 #### [facility] [address], [place] [id number] TSHon 07-03-2021 TSH 1.670 uIU/mL Normal 0.400-4.500 [facility] Animal Science Professor Comment on above: Performed By: #### C BCAD, TSH, FT4, CMP, FT3 #### [facility] [address], [place] [id number] Vital Signs Date Time Vital Sign Value Performing Clinician Facility 05-20-2024 09:45-0500 Diastolic blood pressure 80 mm[Hg] Naina Thornton MD Work Phone: [facility] 05-20-2024 09:45-0500 Systolic blood pressure 123 mm[Hg] Naina Thornton MD Work Phone: [facility] 05-20-2024 08:59-0500 Body height 162.6 cm Naina Thornton MD Work Phone: [facility] 05-20-2024 08:59-0500 Body mass index (BMI) [Ratio] 50.44 kg/m2 Naina Thornton MD Work Phone: [facility] 05-20-2024 08:59-0500 Body weight 133.3 kg Naina Thornton MD Work Phone: [facility] 04-21-2024 15:37-0500 Body height 162.6 cm Sherrie Cazares CITY ASSESSOR Work Phone: [facility] 04-21-2024 15:37-0500 Body mass index (BMI) [Ratio] 50.74 kg/m2 Sherrie Cazares CITY ASSESSOR Work Phone: [facility] 04-21-2024 15:37-0500 Body weight 134.08 kg Sherrie Cazares CITY ASSESSOR Work Phone: [facility] 04-21-2024 15:37-0500 Diastolic blood pressure 84 mm[Hg] Sherrie aCzares CITY ASSESSOR Work Phone: [facility] 04-21-2024 15:37-0500 Heart rate 60 /min Sherrie Cazares CITY ASSESSOR Work Phone: [facility] 04-21-2024 15:37-0500 Respiratory rate 18 /min Sherrie Cazares CITY ASSESSOR Work Phone: [facility] 04-21-2024 15:37-0500 SaO2% (BldA) [Mass fraction] 97 % Sherrie Cazares CITY ASSESSOR Work Phone: [facility] 04-21-2024 15:37-0500 Systolic blood pressure 130 mm[Hg] Sherrie Cazares CITY ASSESSOR Work Phone: [facility] 03-18-2024 10:36-0500 Body height 162.6 cm Alba Hemmer PA Work Phone: [facility] 03-18-2024 10:36-0500 Body mass index (BMI) [Ratio] 50.26 kg/m2 Alba Hemmer PA Work Phone: [facility] 03-18-2024 10:36-0500 Body temperature 99.19 [degF] Alba Hemmer PA Work Phone: [facility] 03-18-2024 10:36-0500 Body weight 132.81 kg Alba Hemmer PA Work Phone: [facility] 03-18-2024 10:36-0500 Diastolic blood pressure 82 mm[Hg] Alba Hemmer PA Work Phone: [facility] 03-18-2024 10:36-0500 Heart rate 73 /min Alba Hemmer PA Work Phone: [facility] 03-18-2024 10:36-0500 Respiratory rate 16 /min Alba Hemmer PA Work Phone: [facility] 03-18-2024 10:36-0500 SaO2% (BldA) [Mass fraction] 97 % Alba Hemmer PA Work Phone: [facility] 03-18-2024 10:36-0500 Systolic blood pressure 132 mm[Hg] Alba Hemmer PA Work Phone: [facility] 02-16-2024 16:39-0500 Body height 162.6 cm Alba Hemmer PA Work Phone: [facility] 02-16-2024 16:39-0500 Body mass index (BMI) [Ratio] 50.46 kg/m2 Alba Hemmer PA Work Phone: [facility] 02-16-2024 16:39-0500 Body weight 133.36 kg Alba Hemmer PA Work Phone: [facility] 02-16-2024 16:39-0500 Diastolic blood pressure 94 mm[Hg] Alba Hemmer PA Work Phone: [facility] 02-16-2024 16:39-0500 Heart rate 60 /min Alba Hemmer PA Work Phone: [facility] 02-16-2024 16:39-0500 Respiratory rate 16 /min Alba Hemmer PA Work Phone: [facility] 02-16-2024 16:39-0500 SaO2% (BldA) [Mass fraction] 98 % Alba Hemmer PA Work Phone: [facility] 02-16-2024 16:39-0500 Systolic blood pressure 138 mm[Hg] Alba Hemmer PA Work Phone: [facility] 01-27-2024 14:29-0400 Body mass index (BMI) [Ratio] 49.95 kg/m2 Waldo Alexander MD Work Phone: [facility] 01-27-2024 14:29-0400 Body weight 132 kg Waldo Alexander MD Work Phone: [facility] 09-17-2023 09:58-0400 Body height 162.56 cm ODILON Aviles Work Phone: [facility] 09-17-2023 09:58-0400 Body mass index (BMI) [Ratio] 48.4 kg/m2 II Bang Aviles Work Phone: [facility] 09-17-2023 09:58-0400 Body temperature 98 [degF] II Bang Aviles Work Phone: [facility] 09-17-2023 09:58-0400 Body weight 128 kg II Bang Aviles Work Phone: [facility] 09-17-2023 09:58-0400 Diastolic blood pressure 84 mm[Hg] II Bang Aviles Work Phone: [facility] 09-17-2023 09:58-0400 Heart rate 87 /min II Bang Aviles Work Phone: [facility] 09-17-2023 09:58-0400 Respiratory rate 20 /min II Bang Aviles Work Phone: [facility] 09-17-2023 09:58-0400 SaO2% (BldA) [Mass fraction] 98 % II Bang Aviles Work Phone: [facility] 09-17-2023 09:58-0400 Systolic blood pressure 173 mm[Hg] II Bang Aviles Work Phone: [facility] Encounters Encounter Date Encounter Type Care Provider Facility Start: 07-20-2024 End: 07-21-2024 ambulatory [facility] Start: 06-09-2024 End: 06-09-2024 Clinisync Result Encounter Generic External Data Provider [facility] Unsolicited Start: 06-09-2024 End: 06-09-2024 Clinisync Result Encounter Generic External Data Provider [facility] External Department Unsolicited Start: 05-20-2024 End: 05-20-2024 ambulatory NAINA THORNTON Facility:[facility] Start: 05-20-2024 End: 05-20-2024 Patient encounter procedure Naina Thornton MD Work Phone: Endocrinology Comment on above: Hypothyroidism, unsp ecified type (Primary Dx); Elevated TSH; Atrial fibrillation, unspecified type (HCC); Abnormal weight gain; Obstructive sleep apnea; Fatigue, unspecified type Start: 05-17-2024 End: 05-17-2024 ambulatory ZHANNA JUNG [facility] Start: 04-27-2024 End: 04-27-2024 ambulatory RAE APPIAH [facility] Start: 04-21-2024 End: 04-21-2024 Office outpatient visit 25 minutes Sherrie Cazares CITY ASSESSOR Work Phone: [facility] Comment on [...] 03-18-2024 Office outpatient visit 15 minutes Alba VYAS Work Phone: [facility] Comment on [...] ALBA DONOVAN Not Available Start: 10-07-2023 ambulatory Facility:[facility] Start: 10-06-2023 End: 10-06-2023 ambulatory ALBA DONOVAN Not Available Start: 09-30-2023 End: 09-30-2023 ambulatory II Bang Aviles Work Phone: [facility] Work Phone: Start: 09-30-2023 End: 09-30-2023 Departed Referred II Bang Aviles Work Phone: [facility] [place] Work Phone: Start: 09-17-2023 End: 09-17-2023 Patient encounter procedure II Bang Aviles Work Phone: [facility] Work Phone: Start: 09-17-2023 Registered Recurring II Bang Aviles Work Phone: [facility] Work Phone: Start: 09-17-2023 End: 09-17-2023 ambulatory ODILON Aviles Work Phone: [facility] Work Phone: Start: 02-08-2022 End: 02-09-[address] BANG AVILES Facility:[facility]1 Procedures Date Procedure Procedure Detail Performing Clinician Start: 06-09-2024 CA ECHO DOPPLER COMPLETE Generic External Data Provider Start: 04-21-2024 Iaadiadoo influenza Sherrie Cazares NP Work Phone: Start: 10-25-2020 Colonoscopy Alba Hemm er PA Work Phone: Start: 07-20-2020 Mammography Alba Hemm er PA Work Phone: Plan of Treatment Date Care Activity Detail Author Start: 10-25-2030 Screening for malignant neoplasm of colon [facility] Start: 10-11-2024 Influenza vaccination Influenza Vaccine (#1) [facility] Comment on above: Postponed from 12/14/2023 (Patient Refus ed) Start: 09-21-2024 End: 09-21-2024 Follow-up encounter 09/21/2024 6:00 PM EDT [facility] [address] [address] Naina Thornton MD [address] [address] 4 month virtual follow up Endocrinology Comment on above: 4 month virtual follow up Start: 05-20-2024 End: 08-19-2024 Thyrotropin [Units/volume] in Serum or Plasma THYROID STIMULATING HORMONE Lab Routine Hypothyroidism, unspecified type Expected: 05/20/2024, Expires: 08/19/2024 [facility] Work Phone: Comment on above: Expected: 05/20/2024, Expires: Start: 03-22-2024 End: 03-22-2024 Patient encounter procedure 03/22/2024 4:15 PM EST Office Visit [facility] [address] [facility] [address] [place] [id number] Bang Aviles MD [address] [facility] [address] [place] [address] [facility] Start: 03-22-2024 End: 03-22-2025 Basic metabolic 1998 panel - Serum or Plasma Basic metabolic panel Lab Routine Generalized edema Expected: 03/22/2024 (Approximate), Expires: 03/22/2025 [facility] Work Phone: Comment on above: Expected: 03/22/2024 (Approximate), Expi res: 03/22/2025 Start: 03-22-2024 End: 03-22-2025 T3, reverse T3, reverse Lab Routine ESS (euthyroid sick syndrome) Acquired hypothyroidism (CMS/HCC) Expected: 03/22/2024 (Approximate), Expires: 03/22/2025 [facility] Comment on above: Expected: 03/22/2024 (Approximate), Expi res: 03/22/2025 Start: 03-22-2024 End: 03-22-2025 Thyroid peroxidase antibody Thyroid peroxidase antibody Lab Routine Paroxysmal atrial fibrillation (CMS/HCC) ESS (euthyroid sick syndrome) Acquired hypothyroidism (CMS/HCC) Expected: 03/22/2024 (Approximate), Expires: 03/22/2025 [facility] Comment on above: Expected: 03/22/2024 (Approximate), Expi res: 03/22/2025 Start: 03-22-2024 End: 03-22-2025 Thyrotropin [Units/volume] in Serum or Plasma [facility] Comment on above: Expected: 03/22/2024 (Approximate), Expi [...] hypothyroidism (CMS/HCC) Expected: 03/22/2024 (Approximate), Expires: 03/22/2025 [facility] Comment on above: Expected: 03/22/2024 (Approximate), Expi res: 03/22/2025 Start: 03-22-2024 End: 03-22-2025 Triiodothyronine (T3) Free [Mass/volume] in Serum or Plasma T3, free Lab Routine ESS (euthyroid sick syndrome) Acquired hypothyroidism (CMS/HCC) Expected: 03/22/2024 (Approximate), Expires: 03/22/2025 [facility] Comment on above: Expected: 03/22/2024 (Approximate), Expi res: 03/22/2025 Start: 03-18-2024 End: 03-18-2025 COMMON RESPIRATORY BACTERIAL/VIRAL INFECTION (HTRX) COMMON RESPIRATORY BACTERIAL/VIRAL INFECTION (HTRX) Lab Routine Acute non-recurrent frontal sinusitis Acute bronchitis, unspecified organism Expected: 03/18/2024 (Approximate), Expires: 03/18/2025 [facility] Work Phone: Comment on above: Expected: 03/18/2024 (Approximate), Expi res: 03/18/2025 Start: 03-18-2024 End: 03-18-2024 Patient encounter procedure 03/18/2024 10:30 AM EST Office Visit [facility] [address] [place] [place] [phone] Alba Donovan PA [address] [place] [address] Arrived [facility] Comment on above: Arrived Start: 02-16-2024 End: 02-16-2024 Patient encounter procedure 02/16/2024 4:30 PM EST Office Visit [facility] [address] [place] [phone] Alba Donovan, PA [address] [place] [address] Arrived [facility] Comment on above: Arrived Start: 02-16-2024 End: 02-15-2025 Basic metabolic 1998 panel - Serum or Plasma Basic metabolic panel Lab Routine Benign essential hypertension (CMS/HCC) Generalized edema Expected: 02/16/2024 (Approximate), Expires: 02/15/2025 [facility] Comment on above: Expected: 02/16/2024 (Approximate), Expi res: 02/15/2025 Start: 02-16-2024 End: 02-15-2025 Holter monitor study Holter monitor Imaging Routine Benign essential hypertension (CMS/HCC) Palpitations Expected: 02/16/2024 (Approximate), Expires: 02/15/2025 [facility] Comment on above: Expected: 02/16/2024 (Approximate), Expi res: 02/15/2025 Start: 02-16-2024 End: 02-15-2025 TSH W/REFLEX TO FT4 TSH W/REFLEX TO FT4 Lab Routine Acquired hypothyroidism (CMS/HCC) Expected: 02/16/2024 (Approximate), Expires: 02/15/2025 [facility] Work Phone: Comment on above: Expected: 02/16/2024 (Approximate), Expi res: 02/15/2025 Start: 01-27-2024 End: 03-28-2025 MR Breast - bilateral WO and W contrast IV Bilateral breast MR with and without contrast Imaging Routine Family history of breast cancer Dense breasts Fibrocystic breast changes of both breasts Expected: 01/27/2024, Expires: 03/28/2025 [facility] Comment on above: Expected: 01/27/2024, Expires: Start: 12-14-2023 Covid-19 Vaccine ( season) Covid-19 Vaccine ( season) [facility] Start: 12-14-2023 Influenza vaccination Influenza Vaccine (#1) [facility] Start: 09-17-2023 Patient referral [facility] Work Phone: Start: 07-30-2023 Screening for malignant neoplasm of cervix [facility] Start: 07-20-2021 Screening for malignant neoplasm of breast [facility] Start: 2016 Pneumococcal Vaccine: 50+ (1 of 1 - PCV) Pneumococcal Vaccine: 50+ (1 of 1 - PCV) [facility] Start: 2016 Shingrix Vaccine (1 of 2) Shingrix Vaccine (1 of 2) [facility] Start: 10-29-2011 Diabetes Screening Diabetes Screening [facility] Start: 10-29-2011 Lipid panel Lipid Screening [facility] Start: 10-29-2011 Screening for malignant neoplasm of colon [facility] Start: 10-29-1987 Screening for malignant neoplasm of cervix [facility] Start: 1985 Hepatitis B Vaccine (1 of 3 - 19+ 3-dose series) Hepatitis B Vaccine (1 of 3 - 19+ 3-dose series) [facility] Start: 1985 Urine microalbumin profile DTaP,Tdap,Td Vaccine (1 - Tdap) [facility] Start: 1984 Annual PCP Team Chronic Disease Visit Annual PCP Team Chronic Disease Visit [facility] Start: 1984 Anxiety Screening Anxiety Screening [facility] Start: 1984 BP Controlled (<130/80) BP Controlled (<130/80) [facility] Start: 1984 Depression Screening Depression Screening [facility] Start: 1984 Hepatitis C screening Hepatitis C Screening [facility] Start: 1984 HIV screening HIV Screening [facility] Start: 1966 Screening for malignant neoplasm of colon [facility] Patient referral [facility] Work Phone: SENDOUT TEST MISCELLANEOUS [facility] SENDOUT TEST MISCELLANEOUS [facility] Lab Routine Screening for malignant neoplasm of cervix Encounter for gynecological examination without abnormal finding Ordered: 01/27/2024 [facility] Work Phone: Comment on above: Ordered: 01/27/2024 Payers Date Payer Category Payer Private Health Insurance [id number] 2023 Self-pay [id number] 2023 Private Health Insurance [id number] Private Health Insurance 1965 Unknown [id number] 2.16.84 [id number] 1966 Unknown [id number] 2.16.8 [id number] 1966 Unknown [id number] 2.16.84 [id number] 1966 Unknown [id number] 2.16.84 [id number] 1966 Unknown [id number] 2.16.84 [id number] 1966 Unknown [id number] 2.16.84 [id number] 1966 Unknown [id number] 2.16.84 [id number] 1966 Unknown [id number] 2.16.84 [id number] 1959 Self-pay [id number] Unknown [id number] 2.16.8 [id number] Unknown [id number] 2.16.8 [id number] Social History Date Type Detail Facility Start: 02-15-2016 End: 09-17-2023 Tobacco smoking status PAIS Ex-smoker (finding) [facility] Start: 1965 Sex Assigned At Female F [facility] Start: 10-06-2023 Tobacco smoking stat us [facility] Never smoked tobacco [facility] Start: 02-15-2016 End: 10-06-2023 Tobacco use and exposure Smokeless tobacco non-user [facility] Start: 01-27-2024 End: 04-21-2024 Alcoholic beverage intake Ex-drinker (finding) [facility] Start: 01-27-2024 End: 04-21-2024 History of Social function [facility] Start: 01-27-2024 End: 04-21-2024 Tobacco use panel [facility] Start: 1965 Sex assigned at Not on file N [facility] History of tobacco use Current smoker [facility] History of tobacco use Cigarette Smoker C [facility] Start: 03-14-2016 Alcoholic beverage intake Current non-drinker of alcohol (finding) [facility] National Score (1-100), lower number is lower risk 76 [facility] Start: 08-13-2012 Tobacco Comment quit in 2002 [facility] Clinical Notes 12-10-2023 to 05-20-2024 Naina Thornton MD - 05/20/2024 9:04 AM Rian Cazares NP - 04/21/2024 3:30 PM ESTPatient InstructionsTelephone Encounter - ASAEL Broussard - 03/22/2024 4:27 PM EST Note Date & Type Note Facility 05-20-2024 Note HNO ID: [id number] Author: NAINA THORNTON MD Service: ? Author Type: Physician Type: Progress Notes Filed: 05/20/2024 10:01 Note Text: SELF REFERRAL Subjective: Juliana Nevlile is a 58 year old female here [...] and bio-chemically hypothyroid (more content not included)... [facility] 05-20-2024 History of Present illness Narrative [...] a virtual visit documented in this encounter [facility] 05-17-[address] Cardiology - [facility] Reason for visit: HPI: Juliana Neville is a 58 y.o. year old with past medical history including Afib who presents today for follow up. Patient here c/o LE edema. She is scheduled for loop recorder insertion with Dr. Appiah in 2 weeks. She says the edema does get better by morning time. Patient states she expressed her concerns about this to Dr. Appiah when she saw him on 04/27/2024, and he advised to stay away from salty foods. She and her both say she has not stayed away from salty foods. No chest pain. No shortness of breath. PMH: Past Medical History: Diagnosis Date Abnormal [...] Depression: Not at risk (01/27/2024) Received from [facility] PHQ-2 Patient Health Questionnaire-2 Score: 1 Housing Stability: Not on file Utilities: Not on file Health Literacy: Not on file Allergies: No Known Allergies Weight: 134kg Visit Vitals BP (!) 160/97 (BP Location: Right wrist, Patient Position: Sitting) Pulse 57 Ht 1.626 m (5' 4 ) Wt 134 kg (295 lb) SpO2 97% BMI 50.64 kg/m??? Smoking Status Former BSA 2.46 m??? Meds: Current Outpatient Medications on File Prior to Visit Medication Sig Dispense Refill apixaban (Eliquis) 5 mg tablet Take 1 tablet (5 mg) by mouth two times daily. 60 tablet 11 atenolol (Tenormin) 25 mg tablet Take 25 mg by mouth in the morning. levothyroxine (Synthroid, Levoxyl) 150 mcg tablet Take 150 mcg by mouth in the morning. losartan (Cozaar) 100 mg tablet Take 100 mg by mouth in the morning. triamterene-hydroCHLOROthiazide (Maxzide-25) 37.5-25 mg tablet Take 1 tablet by mouth in the morning. No current facility-administered medications on file prior [...] EST by CHRISTIANO VELAZQUEZ Assessment and Plan: Assessment/Plan: Juliana Neville is a 58 y.o. female with Paroxysmal atrial fibrillation (CMS/HCC) Lower extremity edema Benign hypertensive heart disease without congestive heart failure Diagnoses and all orders for this visit: Paroxysmal atrial fibrillation (CMS/HCC) Lower extremity edema - Transthoracic echo (TTE) complete; Future - Basic metabolic panel; Future - B-type natriuretic peptide; Future - spironolactone (Aldactone) 25 mg tablet; Take 1 tablet (25 mg) by mouth in the morning. - hydroCH (more content not included)... [facility] 04-27-[address] Electrophysiology Consult Note CT Cardiology - [facility] Reason for visit: HPI: Juliana [...] Depression: Not at risk (01/27/2024) Received from [facility] PHQ-2 Patient Health Questionnaire-2 Score: 1 Housing [...] JAIDEN eval. - (more content not included)... [facility] 04-21-2024 History of Present illness Narrative [...] CHEW, OR SPLIT. 30 tablet 1 fluocinolone ([place]) 0.01 % external oil APPLY TO AFFECTED [...] cyst mass - begnign Dr. Joel Hamilton [facility] Past Surgical History: Procedure Laterality Date SECTION, [...] follow-ups on file. documented in this encounter [facility] 04-21-2024 Instructions Sherrie Cazares NP - 04/21/2024 3:30 PM EST Amoxicillin ordered today. [place] DMT samples given documented in this encounter [facility] 03-22-2024 Telephone encounter Note Spoke with patient. Reviewed the above information in detail with patient. She has had issues with her heart rhythm before when her thyroid was out of whack, requesting full thyroid panel labs, states TSH is never enough for her. Ordered. She is agreeable to new medications for the time being. [facility] 03-22-2024 Miscellaneous Notes Spoke with patient. Reviewed [...] to return call. documented in this encounter [facility] 03-22-2024 Telephone encounter Note Need to speak [...] insurance. LM for pt to return call. [facility] 03-18-2024 History of Present illness [...] to Visit Medication Sig Dispense Refill fluocinolone ([place]) 0.01 % external oil APPLY TO AFFECTED [...] cyst mass - begnign Dr. Joel Hamilton [facility] Past Surgical History: Procedure Laterality Date SECTION, [...] this visit: Acute non-recurrent frontal sinusitis - [id number] 60-15-400 MG tablet; Take 1 tablet by [...] Appointment As Scheduled. documented in this encounter [facility] 02-16-2024 History of Present illness Narrative Images [...] cyst mass - begnign Dr. Joel Hamilton [facility] Past Surgical History: Procedure Laterality Date SECTION, [...] order to have Holter Monitor placed at [facility] for 7 days for further evaluation of current symptoms. Follow up in about 4 weeks (around 03/15/2024) for Medication Follow Up. documented in this encounter [facility] 01-27-2024 History of Present illness Narrative Images from the original note were not included. 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 Joel Hamilton [facility] Past Surgical History: Procedure Laterality Date SECTION, [...] 7 days Breast MRI order placed [place] [facility]. documented in this encounter [facility] 12-10-2023 Telephone encounter Note Paxil sent in for patient. [facility] 12-10-2023 Miscellaneous Notes Paxil sent in for [...] her please advise documented in this encounter [facility] 12-10-2023 Telephone encounter Note Pt stated she only used this for Three weeks , she had a very loud roaring in her ears ,stated she had the same problem the last time she tried this a few years ago [facility] 12-10-2023 Telephone encounter Note Pt lm on vm stating she discontinued celexa due to side effects, but she is wondering if there is something similar that could be sent in for her please advise [facility] Evaluation note Diagnosis Onset Date Malignant melanoma in situ a [facility] Work Phone: Evaluation note* Diagnosis Family history of breast cancer- Primary Family history of malignant neoplasm of breast Encounter for screening mammogram for malignant neoplasm of breast Screening for malignant neoplasm of cervix Screening for malignant neoplasm of the cervix Encounter for gynecological examination without abnormal finding Dense breasts Inconclusive mammogram Fibrocystic breast changes of both breasts documented in this encounter [facility] HealthcareEvaluation note* Diagnosis Benign essential hypertension (CMS/HCC)- Primary Essential hypertension, benign Morbid obesity (CMS/HCC) Morbid obesity Acquired hypothyroidism (CMS/HCC) Unspecified hypothyroidism Anxiety about health JAIDEN (obstructive sleep apnea) Obstructive sleep apnea (adult) (pediatric) Generalized edema Edema Palpitations documented in this encounter [facility] HealthcareEvaluation note* Diagnosis Acute non-recurrent frontal sinusitis- Primary Acute bronchitis, unspecified organism documented in this encounter [facility] HealthcareEvaluation note* Diagnosis Paroxysmal atrial fibrillation (CMS/HCC)- Primary Atrial fibrillation ESS (euthyroid sick syndrome) Euthyroid sick syndrome Acquired hypothyroidism (CMS/HCC) Unspecified hypothyroidism Generalized edema Edema documented in this encounter [facility] HealthcareEvaluation note* Diagnosis Anxiety about health- Primary documented in this encounter [facility] HealthcareEvaluation note* Diagnosis Acute non-recurrent frontal sinusitis- [...] Fatigue, unspecified type documented in this [facility] Fransico Campos [facility] September 17, 2023 11:03am Note Date/Time September 17, 2023 9:54a m [facility] [place] [address] Cancer Center Note Signed Patient: Juliana Neville MR#: [id number] : 1965 Acct:[id number] Age/Sex: 57 / F Type: REG AMB Date of Service: 09/17/23 Copies to: MD Shanta Gamboa II, MD~ Assessment & Plan A/P (1) Malignant melanoma in situ: Plan At this point patient had 1 cm hyperpigmented macule on the right superior cheekjust below her right eyelid. Patient status post shave skin biopsy done on 08/14/2023 by her room service waiter/waitress which revealed malignant melanoma in situ with [...] therefore she underwent a biopsy by her room service waiter/waitress on 08/14/2023 which revealed malignant melanoma in [...] shave biopsy done on 08/14/2023 by her room service waiter/waitress Dr. Shanta Brandon. 14 point systems were [...] Dr Shanta Brandon for melanoma. [facility] Medical History Medical History (Updated [...] signed by Fransico Campos MD> 09/17/23 1103 [facility] Work Phone: Summary Purpose Family History No [...] section and content) DATE CREATED AUTHOR 07/04/2021 [facility] dical Specialist DATE CREATED AUTHOR AUTHOR'S ORGANIZ ATION 02/15/2022 [facility] DATE CREATED AUTHOR AUTHOR'S ORGANIZ ATION 10/10/2023 [facility] DATE CREATED AUTHOR AUTHOR'S ORGANIZ ATION 10/12/2023 [facility] DATE CREATED AUTHOR AUTHOR'S ORGANIZ ATION 04/27/2024 [facility] dical Specialists EPIC DATE CREATED AUTHOR AUTHOR'S ORGANIZ ATION 05/19/2024 [facility] DATE CREATED AUTHOR AUTHOR'S ORGANIZ ATION 07/01/2024 [facility] DATE CREATED AUTHOR AUTHOR'S ORGANIZ ATION 07/22/2024 [facility] Care Teams (unrecognized sec tion and [...] September 30, 2023 End: September 30, 2023 Nurse Administrator Relationship Specialty Start Date End Date Bang Aviles MD [address] [place] [address] PCP - General Internal Medicine 08/20/22 Nurse Administrator Relationship Specialty Start Date End Date Bang Aviles MD [address] [place] [address] PCP - General Internal Medicine 08/20/22 Nurse Administrator Relationship Specialty Start Date End Date Bang Aviles MD [address] [place] [address] PCP - General Internal Medicine 08/20/22 Nurse Administrator Relationship Specialty Start Date End Date Bang Aviles MD [address] [place] [address] PCP - General Internal Medicine 08/20/22 Nurse Administrator Relationship Specialty Start Date End Date aBng Aviles MD [address] [place] [address] PCP - General Internal Medicine 08/20/22 Nurse Administrator Relationship Specialty Start Date End Date Bang Aviles MD [address] [place] [address] PCP - General Internal Medicine 08/20/22 Nurse Administrator Relationship Specialty Start Date End Date Bang Aviles MD [address] [place] [address] PCP - General Internal Medicine 08/20/22 Nurse Administrator Relationship Specialty Start Date End Date Bang Aviles MD [address] [place] [address] PCP - General Internal Medicine 08/20/22 Nurse Administrator Relationship Specialty Start Date End Date Bang Aviles II, MD [address] [place] [address] PCP - General Internal Medicine 02/05/24 Nurse Administrator Relationship Specialty Start Date End Date Bang Aviles MD [address] [place] [address] PCP - General Internal Medicine 08/20/22 Goals [...] or prosecute any alcohol or drug abuse patient.[facility] FOR RECORDS PERTAINING TO PATIENTS WHO ARE [...] BE BASED ON THE PRIMARY CLINICAL RECORDS. [facility]. provides no warranty or guarantee of the accuracy or completeness of information in this document.
--- NOTE | 2024-07-29 10:13 | US_ITS ---
The [address] [address] Patient Name: JULIANA OVRETON MRN: [id number] date: 1965 Sex: F Assigned Patient Location: ED.MAIN Current Patient Location: ED.MAIN Accession/Order Number: [id number] Exam Date: 07/29/2024 11:25 Report Date: 07/29/2024 11:27 At the request of: CAESAR DOUGHERTY MD Procedure: US right upper quadrant LIMITED RIGHT UPPER QUADRANT ABDOMINAL ULTRASOUND CLINICAL HISTORY: Right upper quadrant pain for the past day COMPARISON: None The gallbladder is physiologically distended. There are gallstones measuring up to 16 mm in size. No wall thickening or pericholecystic fluid is seen. No intra- or extrahepatic biliary dilatation is evident. The common duct measures 3-4 mm. The liver parenchyma is echogenic suggesting fatty infiltration. No focal intrahepatic masses are seen. There is appropriate hepatopetal flow within the main portal vein. The pancreas shows no significant sonographic abnormality. Cursory evaluation of the right kidney reveals no hydronephrosis or fluid within Puente's pouch. US/US right upper quadrant IMPRESSION: FATTY LIVER. CHOLELITHIASIS. Impression dictated by: Alba Schulz M.D.07/29/2024 11:27 AM Dictation Location: [place] [address] Electronically authenticated by: [id number] Y Date: 07/29/2024 11:27
--- NOTE | 2024-07-29 10:13 | ECG_ITS ---
The [facility] Test Date: 2024-07-29 Pat Name: JULIANA OVERTON Department: Room: - Gender: Female Business Objects: : 1965 Requested By: [id number] Order Number: [id number] Reading MD: KILO BAUTISTA M.D. Measurements Intervals [place] Rate: 53 P: 36 MT: 198 QRS: 13 QRSD: 82 T: 26 QT: 454 QTc: 438 Interpretive Statements 1100 Sinus rhythm 3113 Cannot rule out anterior myocardial infarction, probably old 8102 Low QRS voltage in chest leads 9150 abnormal ECG No previous ECG available for comparison Electronically Signed On 07-29-2024 17:13:22 EDT by KILO BAUTISTA M.D.
--- NOTE | 2024-07-29 10:15 | ED.GENADUL1 ---
HPI HPI - General Adult General Chief complaint: Abdominal Pain Stated complaint: UPPPER ABDOMIN PAIN Time Seen by Provider: 07/29/24 09:51 Source: patient Mode of arrival: walk-in Limitations: no limitations History of Present Illness HPI narrative: 58-year-old female presents to the emergency department for a chief complaint of abdominal pain. It started about 6:00 this morning and she has never had pain like this before. She points to the epigastric area and it goes into the left and right upper quadrants. No lower abdominal pain. No trauma fever vomiting constipation or diarrhea. She believes her mother had her gallbladder taken out. The pain is continuous Related Data Previous Rx's ?Medication ?Instructions ?Recorded acetaminophen 300 mg-codeine 30 mg 1 tab PO Q6H PRN pain 5 days #20 07/29/24 tablet tabs ondansetron 4 mg disintegrating 4 mg PO Q6H PRN nausea and 07/29/24 tablet vomiting #20 tabs Allergies Allergy/AdvReac Type Severity Reaction Status Date / Time No Known Drug Allergies Allergy Verified 07/29/24 10:04 Opioid HPI Opioid Management Most Recent Opioid Data: No Data to Display Review of Systems ROS Narrative A ten point review of systems is negative except as noted above. PFSH PFSH Social History Little interest or pleasure in doing things: not at all Feeling down, depressed, or hopeless: not at all Exam Narrative Exam Narrative: Nurses note and vital signs reviewed and patient is not hypoxic. General: The patient appears uncomfortable and is in no respiratory distress Skin: Warm, dry, no pallor noted. There is no rash noted. Head: Normocephalic, atraumatic Eye: Normal conjunctiva, no drainage Ears, Nose, Mouth, and Throat: oral mucosa is moist. Nares patent. Cardiovascular: Regular Rate and Rhythm Respiratory: Patient is in no distress, no accessory muscle use, lungs are clear to auscultation, no wheezing, rales or rhonchi Back: non-tender GI: She does not seem to have any tenderness even with palpation of the epigastric area. No masses are noted. Musculoskeletal: The patient has no evidence of calf tenderness, no pitting edema, symmetrical pulses noted bilaterally Neurological: A&O, normal speech Psychiatric: Cooperative Constitutional Vital Signs, click to edit/add: Last Vital Signs Temp 98.7 F 07/29/24 10:04 Pulse 60 07/29/24 10:04 Resp 22 H 07/29/24 10:04 BP 158/76 H 07/29/24 10:04 Pulse Ox 99 07/29/24 10:04 O2 Del Method Room Air 07/29/24 10:04 Course Vital Signs Vital signs: Vital Signs Temperature 98.7 F 07/29/24 10:04 Pulse Rate 60 07/29/24 10:04 Respiratory Rate 22 H 07/29/24 10:04 Blood Pressure 158/76 H 07/29/24 10:04 Pulse Oximetry 99 07/29/24 10:04 Oxygen Delivery Method Room Air 07/29/24 10:04 Temperature 98.7 F 07/29/24 10:04 Pulse Rate 60 07/29/24 10:04 Respiratory Rate 22 H 07/29/24 10:04 Blood Pressure 158/76 H 07/29/24 10:04 Pulse Oximetry 99 07/29/24 10:04 Oxygen Delivery Method Room Air 07/29/24 10:04 Medical Decision Making MDM Narrative Medical decision making narrative: Gallstones are identified on her gallbladder ultrasound without acute cholecystitis. She is provided pain medication and antinausea medicine. Treatment diagnosis and follow-up were discussed with the patient. She was referred to general surgery for follow-up. Differential Diagnosis Differential Diagnosis: Biliary colic, acute cholecystitis, hepatitis, pancreatitis Lab Data Lab results reviewed: Yes I reviewed the patient's lab results Labs: Lab Results 07/29/24 Range/Units 10:30 WBC 6.0 (4.0-11.0) 10^3/uL RBC 4.75 (4.20-5.40) 10^6/uL Hgb 13.9 (12.0-16.0) g/dL Hct 40.5 (36.0-48.0) % MCV 85.3 (81.0-99.0) fL MCH 29.3 (26.7-34.0) pg MCHC 34.3 (29.9-35.2) g/dL RDW 12.9 (11.0-15.0) % Plt Count 220 (150-450) 10^3/uL MPV 10.7 (9.5-13.5) fL Neut % (Auto) 61.9 (43.0-75.0) % Lymph % (Auto) 25.9 (20.5-60.0) % [place] % (Auto) 9.0 (1.7-12.0) % Eos % (Auto) 2.2 (0.9-7.0) % Baso % (Auto) 0.8 (0.2-2.0) % Neut # (Auto) 3.7 (1.4-6.5) 10^3/uL Lymph # (Auto) 1.6 (1.2-3.8) 10^3/uL [place] # (Auto) 0.5 (0.3-0.8) 10^3/uL Eos # (Auto) 0.1 (0.0-0.7) 10^3/uL Baso # (Auto) 0.1 (0.0-0.1) 10^3/uL Abs Immat Gran (auto) 0.01 (0.00-0.03) 10^3/uL Imm/Tot Granulo (auto) 0.2 (0.0-0.5) % Sodium 138 (136-145) mmol/L Potassium 3.5 (3.5-5.1) mmol/L Chloride 101 (98-107) mmol/L Carbon Dioxide 27.6 (21.0-32.0) mmol/L Anion Gap 12.9 BUN 11.0 (7.0-18.0) mg/dL Creatinine 0.78 (0.55-1.02) mg/dL Est GFR ( Amer) >60 (>=60 mL/min/1.73m^2) Est GFR (Non-Af Amer) >60 (>=60 mL/min/1.73m^2) BUN/Creatinine Ratio 14.1 Glucose 115 H (74-106) mg/dL Calcium 9.4 (8.5-10.1) mg/dL Total Bilirubin 1.6 H (0.2-1.0) mg/dL Direct Bilirubin 0.6 H* (0.0-0.2) mg/dL AST 157 H (15-37) U/L ALT 115 H (14-59) U/L Alkaline Phosphatase 147 H (46-116) U/L Total Protein 7.6 (6.4-8.2) g/dL Albumin 3.8 (3.4-5.0) g/dL Globulin 3.8 g/dL Albumin/Globulin Ratio 1.0 Amylase 36 (25-115) U/L Lipase 32.0 (16.0-77.0) U/L Imaging Data Gallbladder ultrasound: Radiologist's impression: ITS Impressions Upper Quadrant Ultrasound 07/29/24 10:13 IMPRESSION: FATTY LIVER. CHOLELITHIASIS. Impression dictated by: Alba Schulz M.D.07/29/2024 11:27 AM Dictation Location: [place] [address] Electronically authenticated by: [id number] Y Date: 07/29/2024 11:27 Discharge Plan Discharge Chief Complaint: Abdominal Pain Clinical Impression: Biliary colic Patient Disposition: Home, Self-Care Time of Disposition Decision: 11:36 Condition: Good Mode of Transportation: Private Vehicle Prescriptions / Home Meds: New acetaminophen-codeine 300-30 mg tablet 1 tab PO Q6H PRN (Reason: pain) 5 Days Qty: 20 0RF ondansetron 4 mg tablet,disintegrating 4 mg PO Q6H PRN (Reason: nausea and vomiting) Qty: 20 0RF Print Language: Upper Sorbian Instructions: Biliary Colic (ED), Gallstones (ED) Referrals: WELLINGTON JOSHI [Primary Care Provider] - 1 week Garry Maier MD [Physician] - 1 week Garry Olvera MD [Physician] - 1 week
[2024-07-29 10:38] LABS: Basophils Absolute Auto 0.1 10^3/uL (0.0-0.1); Basophils Percent Auto 0.8 % (0.2-2.0); Eosinophils Absolute Auto 0.1 10^3/uL (0.0-0.7); Eosinophils Percent Auto 2.2 % (0.9-7.0); Hematocrit 40.5 % (36.0-48.0); Hemoglobin 13.9 g/dL (12.0-16.0); Immature Granulocytes Abs Auto 0.01 10^3/uL (0.00-0.03); Immature Granulocytes Pct Auto 0.2 % (0.0-0.5); Lymphocytes Absolute Auto 1.6 10^3/uL (1.2-3.8); Lymphocytes Percent Auto 25.9 % (20.5-60.0); Mean Corpuscular HGB Conc 34.3 g/dL (29.9-35.2); Mean Corpuscular Hemoglobin 29.3 pg (26.7-34.0); Mean Corpuscular Volume 85.3 fL (81.0-99.0); Mean Platelet Volume 10.7 fL (9.5-13.5); Monocytes Absolute Auto 0.5 10^3/uL (0.3-0.8); Neutrophils Absolute Auto 3.7 10^3/uL (1.4-6.5); Neutrophils Percent Auto 61.9 % (43.0-75.0); Platelet Count 220 10^3/uL (150-450); Red Blood Count 4.75 10^6/uL (4.20-5.40); Red Cell Distribution Width 12.9 % (11.0-15.0)
[2024-07-29 10:53] LABS: Anion Gap 12.9; BUN Creatinine Ratio 14.1; Calcium 9.4 mg/dL (8.5-10.1); Carbon Dioxide 27.6 mmol/L (21.0-32.0); Chloride 101 mmol/L (98-107); Estimated GFR (African America >60 (>=60 mL/min/1.73m^2); Estimated GFR (Non-African Ame >60 (>=60 mL/min/1.73m^2); Glucose 115 mg/dL (74-106); Potassium 3.5 mmol/L (3.5-5.1); Sodium 138 mmol/L (136-145)
--- NOTE | 2024-07-29 10:55 | PC.NURSE ---
pt states her pain is going away, including her nausea, and would like to wait on medications at this time. US in room at this time
[2024-07-29 11:02] LABS: Alanine Aminotransferase 115 U/L (14-59); Albumin Level 3.8 g/dL (3.4-5.0); Alkaline Phosphatase 147 U/L (46-116); Amylase 36 U/L (25-115); Aspartate Amino Transferase 157 U/L (15-37); Bilirubin Total 1.6 mg/dL (0.2-1.0); Globulin 3.8 g/dL; Total Protein 7.6 g/dL (6.4-8.2)
[2024-07-29 11:11] LABS: Bilirubin Direct 0.6 mg/dL (0.0-0.2)
== END 2024-07-29 12:02 | disposition home or self-care (01) ==
PROVIDERS: Emergency Provider Emergency Medicine; PCP Internal Medicine
DX: R10.11 Right upper quadrant pain (principal); R10.12 Left upper quadrant pain; R10.84 Generalized abdominal pain; R10.13 Epigastric pain; K80.20 Calculus of gallbladder without cholecystitis without obstruction; K76.0 Fatty (change of) liver, not elsewhere classified
CPT/HCPCS: 36415; 76705; 80048; 80076; 82150; 83690; 85025; 93005; 99285

== ENCOUNTER 2025-01-12 15:27 | Outpatient (OUT) | payer OTHER, SELFPAY ==
--- OUTSIDE RECORDS SUMMARY | 2024-09-09 14:30 | XMS_ITS ---
Author Name Auto Generated Organization OHIP Care Team Providers Care Computer Technology Instructor Name Role Phone ED APPIAH Attending Unavailable ZHANNA SHAH Attending Unavailable ED APPIAH Attending Unavailable WALDO ALEXANDER Attending Unavailable SANTOS DONOVAN Attending Unavailable SANTOS DONOVAN Attending Unavailable JAIME CAZARES Attending Unavailable ASTRID SAMSON Attending Unavailable SANTOS DONOVAN Attending Unavailable HASAN, NAINA Attending Unavailable SELF Referring Unavailable WELLINGTON JOSHI II Primary Care Unavailable PROBLEMS DATE TYPE CONDITION / CODE ATTENDING STATUS [facility] 04/30/2024 Admitting Diagnosis Paroxysmal atrial fibrillation / I48.0(ICD-10) ED APPIAH Active [facility] 05/17/2024 Admitting Diagnosis Localized edema / R60.0(ICD-10) ZHANNA SHAH Active [facility] 05/17/2024 Admitting Diagnosis Hypertensive heart disease without heart failure / I11.9(ICD-10) ZHANNA SHAH Active [facility] PROCEDURES No Procedure Records Found RESULTS TSH W/REFLEX TO FT4 Collected: 10/27/19 4:23 PM Status: F Source: [facility] TYPE CODE TESTS RESULT OUT OF RANGE REFERENCE UNITS LAB [id number] TSH W/REFLEX TO FT4 0.02 Low 0.40-4.50 mIU/L Performed By: #### 866, 3612 7 #### [facility] [address], [address] [place], [place] [address] Bioinformatics Specialist: Neto Patel MD T4, FREE Collected: 4:23 PM Status: F Source: [facility] TYPE CODE TESTS RESULT OUT OF RANGE REFERENCE UNITS LAB [id number] T4, FREE 2.0 High 0.8-1.8 ng/dL Performed By: #### 866, 3612 7 #### [facility] [address], [address] [place] [address] Bioinformatics Specialist: Neto Patel MD PROGRESS Observed: 07/20/2024 3:45 PM Status: COMPLETED Source: [facility] Electrophysiology Consult Note DC Cardiology [facility] Reason for visit: 07/20/24 Patient states she is here to get results of her 30 day monitor. Patient would like to discuss being taken off her blood thinner. Review of Systems Constitutional: Positive for malaise/fatigue. Cardiovascular: Positive for dyspnea on exertion and leg swelling (more swelling in legs). Prior HPI: Juliana Neville is a 58 y.o. [...] Determinants of Health Tobacco Use: Medium Risk (07/20/2024) Patient History Smoking Tobacco Use: Former Smokeless Tobacco Use: Never Passive Exposure: Not on file Alcohol Use: Not on file Financial Resource Strain: Not on file Food Insecurity: Not on file Transportation Needs: Not on file Physical Activity: Not on file Stress: Not on file Social Connections: Not on file Intimate Partner Violence: Not on file Depression: Not at risk (01/27/2024) Received from [facility] PHQ-2 Patient Health Questionnaire-2 Score: 1 Housing Stability: Not on file Utilities: Not on file Health Literacy: Not on file Allergies: No Known Allergies Weight: 135kg Visit Vitals BP 142/75 (BP Location: Left arm, Patient Position: Sitting) Pulse 59 Ht 1.626 m (5' 4 ) Wt 135 kg (297 lb) SpO2 99% BMI 50.98 kg/m??? Smoking Status Former BSA 2.47 m??? Meds: Current Outpatient Medications on File Prior to Visit Medication Sig Dispense Refill apixaban (Eliquis) 5 mg tablet Take 1 tablet (5 mg) by mouth two times daily. 60 tablet 11 levothyroxine (Synthroid, Levoxyl) 150 mcg tablet Take 175 mcg by mouth in the morning. losartan (Cozaar) 100 mg tablet Take 100 mg by mouth in the morning. triamterene-hydroCHLOROthiazide (Maxzide-25) 37.5-25 mg tablet Take 1 tablet by mouth in the morning. atenolol (Tenormin) 25 mg tablet Take 25 mg by mouth in the morning. hydroCHLOROthiazide (Microzide) 12.5 mg capsule Take 1 capsule (12.5 mg) by mouth in the morning. (Patient not taking: Reported on 07/20/2024) 90 capsule 3 nvwjmdkjduodrtz-UZ-ovpuirlxfyv 60-15-400 mg tablet Take 400 mg by mouth in the morning. spironolactone (Aldactone) 25 mg tablet Take 1 tablet (25 mg) by mouth in the morning. (Patient not taking: Reported on 07/20/2024) 90 tablet 3 No current facility-administered medications on file prior to visit. Physical Exam: Constitutional General Appearance: well-nourished, well-developed, [...] visit (from the past 4464 hour(s)). Echo: 05/20/24 Stress test: Coronary angiogram: @CATH@ Diagnostic Imaging: [...] and Plan: - New Dx of Afib: ECHO ruled out structural heart disease. She is on DOAC for stroke prevention and will recc LOOP for furher delineation of AF since 30d event monitor did not reveal AF. We discussed about natural history of the disease and importance of weight loss and JAIDEN eval. - Obesity: need to focus on weight loss. Ed Appiah MD Cardiac Electrophysiology [facility] OFFICE VISIT Observed: 07/20/2024 3:45 PM Status: COMPLETED Source: [facility] [id number] Juliana Neville F Date Provider Department Center 07/20/2024 241-ED APPIAH Family History Problem Relation Age of Onset COPD Mother Valvular heart disease Father Atrial fibrillation Father Family Status - Relation Status Age at Mother Father Alive Brother Alive Level of Service:04227 MS OFFICE/OUTPATIENT ESTABLISHED LOW MDM 20 MIN CNCO Observed: 06/29/2024 12:00 AM Status: COMPLETED Source: [facility] Letter TextLetter TextLetter Text 36 Observed: 06/14/2024 11:48 AM Status: COMPLETED Source: [facility] Patient called back and said she took the diuretic for about 1.5 weeks because it didn't do anything for her. She said she thinks her thyroid medication adjustment has helped her a lot. 36 Observed: 06/10/2024 4:47 PM Status: COMPLETED Source: [facility] LM for patient to let her kn ow echo performed yesterday was normal. I asked her to return my call to give me an update on the LE edema s/p addition of hydrochlorothiazide. TELEPHONE Observed: 06/10/2024 12:00 AM Status: COMPLETED Source: [facility] [id number] Juliana Neville Date Provider Department Center 06/10/2024 928-ALDEN THOMAS Family History Problem Relation Age of Onset No Known Problems Mother Valvular heart disease Father Atrial fibrillation Father Family Status - Relation Status Age at Mother Father ORDERS ONLY Observed: 06/08/2024 12:00 AM Status: COMPLETED Source: [facility] [id number] Juliana Neville F Date Provider Department Center 06/08/2024 89Evelia-AGATHA PASCUAL LIZZETTE [facility] Family History Problem Relation Age of Onset No Known Problems Mother Valvular heart disease Father Atrial fibrillation Father Family Status - Relation Status Age at Mother Father PROGRESS Observed: 05/20/2024 9:04 AM Status: COMPLETED Source: [facility] ID: [id number] Author: NAINA THORNTON MD Service: ? Author [...] her arms Patient was recently dx with Linette Saw cardiology She was started on a [...] months, this can be a virtual visit CNOV Observed: 05/20/2024 9:00 AM Status: COMPLETED Source: [facility] Office Visit (ENDMED) JULIANA NEVILLE ([id number]) 1965 F TRN Date Time Provider Department 05/20/24 9:00 AM NAINA THORNTON During your visit today, we recorded the following information about you: Blood pressure Weight Height 123/80 133.3 kg 1.626 m Naina Thornton MD 05/20/2024 10:01 AM Signed SELF REFERRAL Subjective: Juliana Colt Jamin is a 58 year old female here [...] her arms Patient was recently dx with Linette Saw cardiology She was started on a [...] months, this can be a virtual visit Referring Provider: SELF [200] Allergies As of Date: 05/20/2024 Noted Allergy Reaction CITALOPRAM 12/10/2023 14 - Other: See Comments Comments: Roaring in Ears Date Reviewed: 05/20/2024 Reviewed by: Danilo Alexander MA - Fully Assessed Reason for Visit: Consult [173] Cmt: New patient Primary Visit Diagnosis:Hypothyroidism, unspecified type [E03.9] Other Visit Diagnoses:Elevated TSH [R79.89] Atrial fibrillation, unspecified type (HCC) [I48.91] Abnormal weight gain [R63.5] Obstructive sleep apnea [G47.33] Fatigue, unspecified type [R53.83] Order(s):levothyroxine (SYNTHROID) 175 mcg tabletTake 1 tablet by mouth once daily.Disp: 90 tabletRfl: 1 THYROID STIMULATING HORMONE [TS] Order #: [id number] FUTURE Prescriptions as of 05/20/2024 - CAPMIST DM 60-15-400 mg tab take 1 tablet by mouth every 6 hours as needed for cough - losartan (COZAAR) 100 mg tablet Take 100 mg by mouth. - VTAMA 1 % cream - apixaban (ELIQUIS) 2.5 mg tab(s) Take 2.5 mg by mouth two times a day. - triamterene-hydroCHLOROthiazide (MAXZIDE-25MG) 37.5-25 mg per tablet Take 1 tablet by mouth once daily. - atenolol (TENORMIN) 25 mg tablet Take 25 mg by mouth once daily. - hydroCHLOROthiazide 12.5 mg capsule Take 12.5 mg by mouth once daily. - levothyroxine (SYNTHROID) 175 mcg tablet Take 1 tablet by mouth once daily. - HYDROcodone-acetaminophen (NORCO) 5-325 mg per tablet Take 1-2 tablets by mouth every 4 hours as needed. - docusate sodium (COLACE) 100 mg capsule Take one capsule twice daily while taking pain medications to prevent constipation. 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 Medications Discontinued During This Encounter Prescriptions - losartan-hydrochlorothiazide 50-12.5 mg per tablet (Discontinued) Take 1 tablet by mouth once daily. - NATURE THYROID ORAL (Discontinued) Take 113 mcg by mouth daily at bedtime. - NATURE THYROID ORAL (Discontinued) Take 0.97 mg by mouth once daily. - levothyroxine (SYNTHROID) 150 mcg tablet (Discontinued) Take 150 mcg by mouth. Disposition: Return in about 4 months (around 09/17/2024). Follow-up and Disposition History for Encounter Date Provider Department Center 05/20/2024 [id number], SANA [facility] Encounter Status:Closed by NAINA THORNTON on 05/20/24 PROGRESS Observed: 05/17/2024 3:00 PM Status: COMPLETED Source: [facility] Cardiology - [facility] Reason for visit: HPI: Juliana Neville [...] Depression: Not at risk (01/27/2024) Received from [facility] PHQ-2 Patient Health Questionnaire-2 Score: 1 Housing [...] mg) by mouth in the morning. - hydroCHLOROthiazide (Microzide) 12.5 mg capsule; Take 1 capsule (12.5 mg) by mouth in the morning. Benign hypertensive heart disease without congestive heart failure - Transthoracic echo (TTE) complete; Future - Basic metabolic panel; Future - B-type natriuretic peptide; Future - spironolactone (Aldactone) 25 mg tablet; Take 1 tablet (25 mg) by mouth in the morning. - hydroCHLOROthiazide (Microzide) 12.5 mg capsule; Take 1 capsule (12.5 mg) by mouth in the morning. Optimize medical management Aggressive risk factor modification Plan of care discussed with patient. All questions were answered. Patient voices understanding and is agreeable with current plan. Patient was educated on red flag symptoms. Strict return precautions were provided. Patient verbalizes understanding Follow-up in cardiology clinic in 3 months, or sooner as needed Zhanna Shah MD [facility] OFFICE VISIT Observed: 05/17/2024 3:00 PM Status: COMPLETED Source: [facility] [id number] JaminJuliana Colt F Date Provider Department Center 05/17/2024 3848-ZHANNA SHAH LIZZETTE [facility] Family History Problem Relation Age of Onset No Known Problems Mother Valvular heart disease Father Atrial fibrillation Father Family Status - Relation Status Age at Mother Father Level of Service:43200 MS OFFICE/OUTPATIENT ESTABLISHED MOD MDM 30 MIN BASIC METABOLIC PANEL Collected: 2024 4:25 PM Status: F Source: [facility] Order Comment: FASTING:NO FASTING: NO TYPE CODE TESTS RESULT OUT OF RANGE REFERENCE UNITS LAB [id number] GLUCOSE 82 Normal 65-139 mg/dL Result Comment: Non-fasting reference interval LAB [id number] UREA NITROGEN (BUN) 13 Normal 7-25 mg/dL LAB [id number] CREATININE 1.01 Normal 0.50-1.03 mg/dL LAB [id number] EGFR 65 Normal > OR = 60 mL/min/1 .73m2 LAB [id number] BUN/CREATININE RATIO SEE NOTE: 622 (calc) Result Comment: Not Reported : BUN and Creatinine are within reference range. LAB [id number] SODIUM 139 Normal 135-146 mmol/L LAB [id number] POTASSIUM 3.9 Normal 3.5-5.3 mmol/L LAB [id number] CHLORIDE 100 Normal 98-110 mmol/L LAB [id number] CARBON DIOXIDE 28 Normal 20-32 mmol/L LAB [id number] CALCIUM 9.4 Normal 8.6-10.4 mg/dL Performed By: #### 866, 859, 41917, 45885, 5081, 867 #### [facility] [place] [address] [facility], [address] [place] [address] Bioinformatics Specialist: Neto Patel MD #### 02312 #### [facility] [address] [facility] [place], [place] Bioinformatics Specialist: Rodolfo Vasquez M.D.,PhD T3 REVERSE, LC/MS/MS Collected: 4:25 PM Status: F Source: [facility] TYPE CODE TESTS RESULT OUT OF RANGE REFERENCE UNITS LAB [id number] T3 REVERSE, LC/MS/MS 19 8-25 ng/dL Result Comment: This test was developed and its analytical performance characteristics have been determined by [employer] [place], [place]. It has not been cleared or approved by the U.S. Food and Drug Administration. This assay has been validated pursuant to the CLIA regulations and is used for clinical purposes. Performed By: #### 866, 859, 50595, 71377, 5081, 867 #### [facility] [address], [address] [place] [address] Bioinformatics Specialist: Neto Patel MD #### [id number] #### [facility] [address] [facility] [place], [place] Bioinformatics Specialist: Rodolfo Vasquez M.D.,PhD THYROID PEROXIDASE ANTIBODIES Collected : 05/11/2024 4:25 PM Status: F Source: [facility] TYPE CODE TESTS RESULT OUT OF RANGE REFERENCE UNITS LAB [id number] THYROID PEROXIDASE ANTIBODIES 3 Normal <9 IU/mL Performed By: #### 866, 859, 27888, 99792, 5081, 867 #### [facility] [address], [address] [place] [address] Bioinformatics Specialist: Neto Patel MD #### 10854 #### [facility]/[place] [address] [facility] [place], [place] Bioinformatics Specialist: Rodolfo Vasquez M.D.,PhD T3, TOTAL Collected: 4:25 PM Status: F Source: [facility] TYPE CODE TESTS RESULT OUT OF RANGE REFERENCE UNITS LAB [id number] T3, TOTAL 97 Normal 76-181 ng/dL Performed By: #### 866, 859, 24278, 11468, 5081, 867 #### [facility] [place] [address] Bioinformatics Specialist: Neto Patel MD #### 84219 #### [facility]/[place] [address] [facility] [place], [place] Bioinformatics Specialist: Rodolfo Vasquez M.D.,PhD T4, FREE Collected: 4:25 PM Status: F Source: [facility] TYPE CODE TESTS RESULT OUT OF RANGE REFERENCE UNITS LAB [id number] T4, FREE 1.3 Normal 0.8-1.8 ng/dL Performed By: #### 866, 859, 29819, 06948, 5081, 867 #### [facility] [place] [address] Bioinformatics Specialist: Neto Patel MD #### 16231 #### [facility]/[place] [address] [facility] [place], [place] Bioinformatics Specialist: Rodolfo Vasquez M.D.,PhD T4 (THYROXINE), TOTAL Collected: 2024 4:25 PM Status: F Source: [facility] TYPE CODE TESTS RESULT OUT OF RANGE REFERENCE UNITS LAB [id number] T4 (THYROXINE) , TOTAL 9.9 Normal 5.1-11.9 mcg/dL Performed By: #### 866, 859, 55620, 98179, 5081, 867 #### [facility] [address], [address] [place] [address] Bioinformatics Specialist: Neto Patel MD #### 77433 #### [facility]/[place] [address] [facility] [place], [place] Bioinformatics Specialist: Rodolfo Vasquez M.D.,PhD TSH Collected: 4:25 PM Status: F Source: [facility] TYPE CODE TESTS RESULT OUT OF RANGE REFERENCE UNITS LAB [id number] TSH 15.25 High 0.40-4.50 mIU/L Performed By: #### 866, 859, 54734, 61091, 5081, 867 #### [facility] [address], [address] [place] [address] Bioinformatics Specialist: Neto Patel MD #### 82704 #### [facility]/[address] [place], [place] Bioinformatics Specialist: Rodolfo Vasquez M.D.,PhD T3, FREE Collected: 4:25 PM Status: F Source: [facility] TYPE CODE TESTS RESULT OUT OF RANGE REFERENCE UNITS LAB [id number] T3, FREE 2.8 Normal 2.3-4.2 pg/mL Performed By: #### 866, 859, 40792, 71420, 5081, 867 #### [facility] [address], [address] [place] [address] Bioinformatics Specialist: Neto Patel MD #### 34425 #### [facility]/[address] [place], [place] Bioinformatics Specialist: Rodlofo Vasquez M.D.,PhD LETTER (OUT) Observed: 05/04/2024 12:00 AM Status: COMPLETED Source: [facility] [id number] Juliana Neville Provider Department Center 05/04/2024 None-None [facility] AUTH DC Medical C Family History Problem Relation Age of Onset No Known Problems Mother Valvular heart disease Father Atrial fibrillation Father Family Status - Relation Status Age at Mother Father OFFICE VISIT Observed: 04/27/2024 2:00 PM Status: COMPLETED Source: [facility] [id number] Bruce Provider Department Center 04/27/2024 ED [facility] Constantine Montelongo Family History Problem Relation Age of Onset No Known Problems Mother Valvular heart disease Father Atrial fibrillation Father Family Status - Relation Status Age at Mother Father Level of Service:72506 MS OFFICE/OUTPATIENT NEW MODERATE MDM 45 MINUTES PROGRESS Observed: 04/27/2024 2:00 PM Status: COMPLETED Source: [facility] Electrophysiology Consult Note DC Cardiology - [facility] Reason for visit: HPI: Juliana Neville [...] Depression: Not at risk (01/27/2024) Received from [facility] PHQ-2 Patient Health Questionnaire-2 Score: 1 Housing [...] of weight loss and JAIDEN eval. - Obesity: need to focus on weight loss. Ed Appiah MD Cardiac Electrophysiology [facility] ALLERGIES DATE TYPE / CODE NAME / CODE REACTION SEVERITY SOURCE Drug Class/[id number](SNO MED CT) NO KNOWN ALLERGIES [place] [facility] [place] SYSTEMIC/[id number]( SNOMED CT) NO KNOWN ALLERGIES [facility] ENCOUNTERS ADMIT/DISCHARGE ACCOUNT NUMBER ADMITTING ENCOUNTER CLASS LOCATION SOURCE 09/09/2024/09/10/19 [id number] Ambulatory Building:[facility] 08/11/2024/08/12/19 [id number] Ambulatory Building:[facility] 07/20/2024/07/22/19 25 [id number] Ambulatory Building:[facility] 05/20/2024/05/20/19 [id number] Ambulatory [facility] ing[facility] 05/17/2024/05/17/19 [id number] Ambulatory Building:[facility] 04/27/2024/04/27/19 25 [id number] Ambulatory Building:[facility] 04/21/2024/04/21/19 25 [id number] Ambulatory Building:[facility] 03/18/2024/03/18/20 24 [id number] Ambulatory Building:[facility] 02/16/2024/02/16/20 24 [id number] Ambulatory Building:[facility] 01/27/2024/01/27/20 24 [id number] Ambulatory Building:[facility] PAYERS ENCOUNTER GUARANTOR PAYER SUBSCRIBER SOURCE 09/09/2024 JULIANA VALENCIA: [address] [address]Dft: (HP) Primary Insurance:CIGNAPolicy Number: [id number] Date:8711-52-[address]VD [address] [place] [address]PB: JULIANA OSORIOB: [id number] [address] [address] [facility] Medical [facility] 08/11/2024 JULIANA NEVILLEDOB: [address] [address]Gie: (HP) Primary Insurance:CIGNAPolicy Number: [id number] Date:5993-54-00[address], [place] [address]RG: JULIANA NEVILLEB: [id number] [address] [address] [facility] Medical [facility] 07/20/2024 Primary Insurance:ALLIED BENEFIT SYSTEMSPolicy Number: [id number] Date:2024-03-14 - 2024-04-13 JULIANA OSORIOB: [id number] [address] [address] [facility] 05/20/2024 Primary Insurance:CIGNA PPO TPAPolicy Number: [id number] Date:1209-87-03Eevh Name:Nicole OSORIOCarina: [id number] [address] [address] [facility] 05/17/2024 Primary Insurance:ALLIED BENEFIT SYSTEMSPolicy Number: [id number] Date:2024-03-14 JULIANA OSORIOB: [id number] [address] [address] [facility] 04/27/2024 Primary Insurance:ALLIED BENEFIT SYSTEMSPolicy Number: [id number] Date:2024-03-14 JULIANA OSEGUERAERDOB: [id number] [address] [place] [address] [facility] 04/21/2024 JULIANA OSEGUERAERDOB: [address] [place] [address]Lby: (HP) Primary Insurance:CIGNAPolicy Number: [id number] Date:5506-70-16[address] [address]SN: JULIANA OSEGUERAERDOB: [id number] [address] [place] [address] [facility] 03/18/2024 JULIANA OSEGUERAERDOB: [address] [address]Rng: (HP) Primary Insurance:CIGNAPolicy Number: [id number] Date:5684-81-61[address]BI[place], [place] [address]BE: JULIANA OSEGUERAERDOB: [id number] [address] [place] [address] [facility] 02/16/2024 JULIANA OSEGUERAERDOB: [address] [place] [address]Jip: (HP) Primary Insurance:CIGNAPolicy Number: [id number] Date:9425-87-35RY [address]UT[place]WP, [place] [address]VV: JULIANA OSEGUERAERDOB: [id number] [address] [address] [facility] 01/27/2024 JULIANA OSEGUERAERDOB: [address] [place] [address]Vvq: (HP) Primary Insurance:CIGNAPolicy Number: [id number] Date:2116-11-77[address], [place] [address]EO: JULIANA VALENCIA: [id number] [address] [address] [facility]
--- OUTSIDE RECORDS SUMMARY | 2025-01-12 15:30 | XMS_ITS | Encounter Summary ---
Author Organization [facility] Address [address] [place] [address] Care Team Providers Care Customer Development Representative Name Role Phone Bang Aviles MD Primary Care Provider [phone] Encounter Details Date Type Department Care Team (Late st Contact Info) Description 03/19/2024 Clinisync Result Encounter [facility] External Department Unsolicited Santos Isaac PA [address] [facility] [address] [place], [place] [id number] Social History Tobacco Use Types Packs/Day Years Used Date Smoking Tobacco: Never Smokeless Tobacco: Never Alcohol Use Standard Drinks/Week Comments Not Currently 0 (1 standard drink = 0.6 oz pur e alcohol) PHQ-2 Answer Date Recorded Patient Health Questionnaire-2 Score 1 01/27/2024 Comments No Sex and Gender Information Value Date Recorded Sex Assigned at Not on file Legal Sex Female 7:20 PM EDT Gender Identity Not on file Sexual Orientation Not on file documented as of this encounter Plan of Treatment Not on file documented as of this encounter Procedures Procedure Name Priority Date/Time Associated Diagnosis Comments CA HOLTER MONITOR 2-7 DAYS 03/19/2024 8:17 AM EST documented in this encounter Results * CA HOLTER MONITOR 2-7 DAYS (03/19/2024 8:17 AM EST) Anatomical Region Laterality Modality Other 03/19/2024 8:17 AM EST Narrative 03/21/2024 7:01 PM EST [facility] [place] [id number] Cardiology Report Signed Patient: JULIANA NEVILLE MR#: [id number] : 1965 Acct:[id number] Age/Sex: 58 / F ADM Date: 03/08/24 Loc: CARD Attending Dr: SANTOS ISAAC Ordering Physician: SANTOS ISAAC Date of Service: 03/08/24 Procedure(s): CA holter montior 2-7 days Accession Number(s): [id number] cc: BANG AVILES ; SANTOS ISAAC [facility] Test Date: 2024-03-19 Pat Name: JULIANA NEVILLE Department: Room: - Gender: Female Gun Numberer: : 1965 Requested By: DENISE SOLOMON Order Number: [id number] Reading MD: MICHAEL VELAZQUEZ Interpretive Statements Predominant rhythm is sinus with average rate [...] Electronically Signed On 03-21-2024 19:01:31 EST by MICHAEL VELAZQUEZ Dictated By: Michael Velazquez D.O. Signed By: 03/21/24190003/21/241900 DD/ 0817 TD/TT: Residential Door Installer: Procedure Note Radiology, Radiologist, MD - 03/21/2024 [facility] [place] [id number] Cardiology Report Signed Patient: JULIANA NEVILLE CMR#: [id number] : 1965Acct:[id number] Age/Sex: 58 / FADM Date: 03/08/24 Loc: CARD Attending Dr: SANTOS ISAAC Ordering Physician: SANTOS ISAAC Date of Service: 03/08/24 Procedure(s): CA holter montior 2-7 days Accession Number(s): [id number] cc: BANG AVILES ; SANTOS ISAAC [facility] Test Date: 2024-03-19 Pat Name: JULIANA NEVILLE Department: Room: - Gender: Female Gun Numberer: : 1965 Requested By: DENISE SOLOMON Order Number: [id number] Reading MD: MICHAEL VELAZQUEZ Interpretive Statements Predominant rhythm is sinus with average rate [...] Electronically Signed On 03-21-2024 19:01:31 EST by MICHAEL VELAZQUEZ Dictated By: Michael Velazquez D.O. Signed By:03/21/24190003/21/241900 DD/ 0817 TD/TT: Residential Door Installer: Santos Isaac PA [facility] Final Result documented in this encounter Visit Diagnoses Not on filedocumented in this encounter Care Teams Customer Development Representative Relationship Specialty Start Date End Date Bang Aviles MD [address] [place] [address] PCP - General Internal Medicine 08/20/22 documented as of this encounter
--- OUTSIDE RECORDS SUMMARY | 2025-01-12 15:30 | XMS_ITS | Encounter Summary ---
Author Organization [facility] Address [address] [facility] [place] [address] Care Team Providers Care Review Engineer Name Role Phone Bang Aviles MD Primary Care Provider [phone] Reason for Visit * Reason Comments Med Refill Encounter Details Date Type Department Care Team (Late st Contact Info) Description 01/05/2025 Refill [facility] [address] [place] [address] Alba Isaac PA [address] [place] [address] Hypothyroidism, unspecified Social History Tobacco Use Types Packs/Day Years Used Date Smoking Tobacco: Never Smokeless Tobacco: Never Alcohol Use Standard Drinks/Week Comments Not Currently 0 (1 standard drink = 0.6 oz pur e alcohol) PHQ-2 Answer Date Recorded Patient Health Questionnaire-2 Score 0 09/09/2024 Comments No Sex and Gender Information Value Date Recorded Sex Assigned at Not on file Legal Sex Female 7:20 PM EDT Gender Identity Not on file Sexual Orientation Not on file documented as of this encounter Plan of Treatment Not on file documented as of this encounter Visit Diagnoses Diagnosis Hypothyroidism, unspecified documented in this encounter Care Teams Review Engineer Relationship Specialty Start Date End Date Bang Aviles MD [address] [place], [place] [id number] PCP - General Internal Medicine 08/20/22 documented as of this encounter
--- OUTSIDE RECORDS SUMMARY | 2025-01-12 15:30 | XMS_ITS | Clinical Summary ---
Author Organization [facility] Address [address] [place] [address] Care Team Providers Care Senior Financial Reporting Accountant Name Role Phone Bang Aviles MD Primary Care Provider [phone] Allergies Active Allergy Reactions Criticality Noted Date Comments Citalopram Other 12/10/2023 [place] Medications VITAMIN D PO Take 1 tablet by mouth Daily Active BERBERINE Active senna-docusate sodium (Senokot-S) 8.6-50 MG tablet Take 1 tablet by mouth Daily PRN Active ALPRAZolam (Xanax) 2 MG tabletIndications :Anxiety about health Take 1 tablet (2 mg) by mouth 1 time for 1 dose Take prior to MRI 1 tablet Active Additional Information Patient not taking.Reason: Other, Reported on 09/09/2024 fluocinolone ([facility]) 0.01 % external oil APPLY TO AFFECTED AREAS ON TRUNK AND AND EXTREMITIES ONCE DAILY. Active Vtama 1 % cream Active triamterene-hydro chlorothiazide (Maxzide-25) 37.5-25 MG tabletIndications :Benign essential hypertension TAKE 1 TABLET BY MOUTH EVERY DAY IN THE MORNING 100 tablet 3 025 Active losartan (Cozaar) 100 MG tabletIndications :Essential (primary) hypertension TAKE 1 TABLET BY MOUTH DAILY 90 tablet 2 025 Active Eliquis 5 MG tablet Take 5 mg by mouth in the morning and 5 mg before bedtime. Active ondansetron ODT (Zofran-ODT) 4 MG disintegrating tablet TAKE 1 TABLET BY MOUTH EVERY 6 HOURS NEEDED FOR NAUSEA AND VOMITING 025 Active levothyroxine (Synthroid, Levoxyl) 75 MCG tabletIndications :Hypothyroidism, unspecified TAKE 1 TABLET BY MOUTH DAILY TAKE WITH THE 88 MCG DOSAGE FOR TOTAL OF 163 MCG DAILY 30 tablet 1 025 Active levothyroxine (Synthroid, Levoxyl) 88 MCG tabletIndications :Hypothyroidism, unspecified TAKE 1 TABLET BY MOUTH EVERY DAY 30 tablet 1 025 Active levothyroxine (Synthroid, Levoxyl) 88 MCG tabletIndications :Hypothyroidism, unspecified Take 1 tablet (88 mcg) by mouth Daily 30 tablet 1 025 2024 Discontinued levothyroxine (Synthroid, Levoxyl) 75 MCG tabletIndications :Hypothyroidism, unspecified Take 1 tablet (75 mcg) by mouth Daily Take with the 88 mcg dosage for total of 163 mcg daily 30 tablet 1 025 2024 Discontinued Active Problems Problem Noted Date Diagnosed Date Chronic idiopathic constipation 09/10/2024 BMI 50.0-59.9, adult 09/10/2024 Paroxysmal atrial fibrillation 03/22/2024 Generalized edema 02/16/2024 Anxiety about health 10/21/2023 Acquired hypothyroidism 10/06/2023 Anemia of chronic disease 10/06/2023 Benign essential hypertension 10/06/2023 Chronic fatigue 10/06/2023 ESS (euthyroid sick syndrome) 10/06/2023 Female stress incontinence 10/06/2023 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 Hot flushes, perimenopausal 10/06/2023 Insulin resistance 10/06/2023 Internal hemorrhoids 10/06/2023 Irregular menstrual cycle 10/06/2023 Mixed connective tissue disease 10/06/2023 Morbid obesity 10/06/2023 JAIDEN (obstructive sleep apnea) 10/06/2023 Osteoarthritis 10/06/2023 Malignant melanoma in situ 10/06/2023 Atypical nevus of ankle 03/25/2016 Melanoma of lower leg 02/15/2016 Other specified disorders of urethra 06/20/2006 Resolved Problems Problem Noted Date Diagnosed Date Resolved Date Acute non-recurrent frontal sinusitis 03/18/2024 03/18/2024 HTN (hypertension) 10/06/2023 Encounters Date Type Department Care Team Description 01/05/[facility] [address] [place] [address] Alba Isaac PA Hypothyroidism, unspecified 10/27/2024 [facility] [address] [facility] [address] [place] [address] Alba Isaac PA 10/27/2024 [facility] [address] [facility] [address] [place] [address] Alba Isaac PA from Last 3 Months Family History Medical History Relation Name Comments Diabetes Brother Obesity Brother Hypertension Father Breast cancer Maternal Grandmother COPD Mother Relation Name Status Comments Brother Alive Daughter Alive Father Maternal Grandmother Mother Social History Tobacco Use Types Packs/Day Years Used Date Smoking Tobacco: Never Smokeless Tobacco: Never Tobacco Cessation:Counseling Given: Yes Alcohol Use Standard Drinks/Week Comments Not Currently 0 (1 standard drink = 0.6 oz pur e alcohol) PHQ-2 Answer Date Recorded Patient Health Questionnaire-2 Score 0 09/09/2024 Comments No Sex and Gender Information Value Date Recorded Sex Assigned at Not on file Legal Sex Female 7:20 PM EDT Gender Identity Not on file Sexual Orientation Not on file Last Filed Vital Signs Vital Sign Reading Time Taken Comments Blood Pressure 136/98 09/09/2024 2:43 PM EDT Pulse 68 09/09/2024 2:43 PM EDT Temperature 37.3 C (99.2 F) 03/18/2024 10:36 AM EST Respiratory Rate 16 09/09/2024 2:43 PM EDT Oxygen Saturation 98% 09/09/2024 2:43 PM EDT Inhaled Oxygen Concentration - - Weight 135 kg (298 lb) 09/09/2024 2:43 PM EDT Height 162.6 cm (5' 4 ) 09/09/2024 2:43 PM EDT Body Mass Index 51.15 09/09/2024 2:43 PM EDT Plan of Treatment Health Maintenance Due Date Last Done Comments CT Colonography 1965 FIT-DNA 1965 FIT 1965 FOBT 1965 Sigmoidoscopy 1965 Skin Cancer Screening 10/29/1967 Pap Smear 10/29/1987 Mammogram 07/20/2021 07/20/2020 Cervical Cancer Screening 07/30/2023 HPV/Cotest 07/30/2023 07/29/2018 Influenza Vaccine (#1) 2024 Colonoscopy 10/25/2030 10/25/2020 Colorectal Cancer Screening 10/25/2030 Procedures Procedure Name Priority Date/Time Associated Diagnosis Comments T4, FREE Routine 10/26/2024 4:23 PM EDT TSH W/REFLEX TO FT4 Routine 10/26/2024 4 :23 PM EDT Acquired hypothyroidism COLONOSCOPY Routine 10/25/2020 12:00 PM EDT BI MAMMOGRAM SCREENING TOMOSYNTHESIS BILATERAL Routine 07/20/2020 Obesity, unspecified Encounter for screening mammogram for malignant neoplasm of breast Frequency of micturition Irregular menstruation, unspecified Stress incontinence (female) (male) Pelvic and perineal pain THINPREP TIS AND HPV MRNA E6/E7 (14697) Routine 07/29/2018 from Last 3 Months or Most Recently Relevant to Health Maintenance Results * (ABNORMAL) TSH W/REFLEX TO FT4 (10/26/2024 4:23 PM EDT) TSH W/REFLEX TO FT4 0.02(L) 0.40 - 4.50 mIU/L [facility] 10/26/2024 4:23 PM EDT 10/26/2024 4:23 PM EDT Narrative Resulting Agency Comment Performing Organization Information Site ID: QPT Name: [facility] Address: [address] [place] [address], [address] [place] [phone] Director: Neto Patel MD us [facility] LAB BLOOD ORDERABLES Final Res ult [facility] * (ABNORMAL) T4, free (10/26/2024 4:23 PM EDT) T4, FREE 2.0(H) 0.8 - 1.8 ng/dL [facility] 10/26/2024 4:23 PM EDT 10/26/2024 4:23 PM EDT Narrative Resulting Agency Comment Performing Organization Information Site ID: QPT Name: [facility] Address: [address] [place] [address], [address] [place] [phone] Director: Neto Patel MD [facility] BLOOD ORDERABLES Final Res ult [facility] * Colonoscopy (10/25/2020 12:00 PM EDT) Anatomical Region Laterality Modality Endoscopy 10/25/2020 12:0 0 PM EDT Narrative 11/10/2020 12:00 PM EDT PERFORMED AT [facility] LOCATION:[id number] Abnormal Procedure Note CONVERSION, GENERIC - 08/28/2022 PERFORMED AT [facility] LOCATION:[id number] Abnormal [facility] ENDOSCOPY PROCEDURE ORDERABLES Final Result * Bilateral screening mammogram with tomosynthesis (07/20/2020) Anatomical Region Laterality Modality Breast Bilateral Mammography Impressions 07/20/2020 12:00 AM EDT BIRADS 2 : BENIGN FINDINGS, NORMAL INTERVAL FOLLOW UP. FOLLOW-UP: 12 months DENSITY: Scattered MAMMOGRAPHY IS VERY IMPORTANT TO YOUR HEALTH. THE CURRENT [employer] GUIDELINES RECOMMENDS ANNUAL MAMMOGRAPHY BEGINNING AT AGE 40 THIS FACILITY USES A REMINDER SYSTEM TO ENSURE ALL PATIENTS RECEIVE REMINDER NOTIFICATIONS AT THE APPROPRIATE TIME BASED ON THE RECOMMENDATIONS OF THIS EXAM. Board Certified Radiologist. Accredited by the ACR and FDA. Report reported and signed by Bang Galvez on 07/24/2020 1102 Narrative 07/20/2020 12:00 AM EDT PERFORMED AT [facility] LOCATION:[place] [id number] CLINICAL HISTORY: Screening Mammogram COMPARISON: Priors from 2011 TECHNIQUE: 2D and 3D mammogram imaging of both breasts was performed. RESULT: DENSITY: There are scattered areas of fibroglandular density. There is no suspicious mass, asymmetry, architectural distortion, or calcification. No significant change since the prior mammograms. Asymmetries in the upper outer quadrant of the left breast, unchanged, likely intramammary lymph nodes. Procedure Note CONVERSION, GENERIC - 10/18/2022 PERFORMED AT [facility] LOCATION:[place] [address] CLINICAL HISTORY: Screening Mammogram COMPARISON: Priors from 2011 TECHNIQUE: 2D and 3D mammogram imaging of both breasts was performed. RESULT: DENSITY: There are scattered areas of fibroglandular density. There is no suspicious mass, asymmetry, architectural distortion, orcalcification. No significant change since the prior mammograms. Asymmetries in theupper outer quadrant of the left breast, unchanged, likely intramammary lymphnodes. IMPRESSION: BIRADS 2 : BENIGN FINDINGS, NORMAL INTERVAL FOLLOW UP. FOLLOW-UP: 12 months DENSITY: Scattered MAMMOGRAPHY IS VERY IMPORTANT TO YOUR HEALTH. THE CURRENT [employer] GUIDELINES RECOMMENDS ANNUALMAMMOGRAPHY BEGINNING AT AGE 40 THIS FACILITY USES A REMINDER SYSTEM TO ENSURE ALL PATIENTS RECEIVEREMINDER NOTIFICATIONS AT THE APPROPRIATE TIME BASED ON THE RECOMMENDATIONS OF THIS EXAM. Board Certified Radiologist. Accredited by the ACR and FDA. Report reported and signed by Bang Galvez on 07/24/2020 1102 Ame Lam DO IMG BI PROCEDURES Final Re sult * THINPREP TIS AND HPV MRNA E6/E7 (06862) (07/29/2018) CLINICAL INFORMATION: None given [facility] LMP: NONE GIVEN [facility] PREV. PAP: NONE GIVEN [facility] PREV. BX: NONE GIVEN [facility] SOURCE: Cervix, Endocervix [facility] STATEMENT OF ADEQUACY: SEE COMMENT [facility] Comment: Satisfactory for evaluation. Endocervical/transformation zone component present. INTERPRETATION/RE SULT: Negative for intraepithelial lesion or malignancy. [facility] COMMENT: This Pap test has been evaluated with computer assisted technology. [facility] PROFESSOR/NURSE ANESTHETIST: SEE COMMENT [facility] Comment: MRS CT(ASCP) CT screening location: [facility], [address] [place] [address], [place] [address]. COMMENT SEE COMMENT [facility] Comment: EXPLANATORY NOTE: The Pap is a screening test for cervical cancer. It is not a diagnostic test and is subject to false negative and false positive results. It is most reliable when a satisfactory sample, regularly obtained, is submitted with relevant clinical findings and history, and when the Pap result is evaluated along with historic and current clinical information. HPV MRNA E6/E7 Not Detected Not Detected [facility] Comment: This test was performed using the APTIMA HPV Assay ([employer] This assay detects E6/E7 viral messenger RNA (mRNA) from 14 high-risk HPV types (16,18,31,33,35,39,45,51,52,56,58,59,66,68). The analytical performance characteristics of this assay have been determined by [employer]. The modifications have not been cleared or approved by the FDA. This assay has been validated pursuant to the CLIA regulations and is used for clinical purposes. 07/29/2018 us Ame Lam DO [facility] Final Resu lt [facility] from Last 3 Months or Most Recently Relevant to Health Maintenance Insurance [facility] Care Teams Senior Financial Reporting Accountant Relationship Specialty Start Date End Date Bang Aviles MD [address] [place] [address] PCP - General Internal Medicine 08/20/22
--- OUTSIDE RECORDS SUMMARY | 2025-01-12 15:30 | XMS_ITS | Encounter Summary ---
Author Organization [facility] Address [address] [place] [address] Care Team Providers Care Hedis Nurse Name Role Phone Bang Aviles MD Primary Care Provider [phone] Encounter Details Date Type Department Care Team (Late st Contact Info) Description 11/20/2023 Orders Only [facility] [address] [place] [address] Unallocated, Noms Provider, [address] [place] [address] Social History Tobacco Use Types Packs/Day Years Used Date Smoking Tobacco: Never Smokeless Tobacco: Never Alcohol Use Standard Drinks/Week Comments Not Currently 0 (1 standard drink = 0.6 oz pur e alcohol) Comments Unknown Sex and Gender Information Value Date Recorded Sex Assigned at Not on file Legal Sex Female 7:20 PM EDT Gender Identity Not on file Sexual Orientation Not on file documented as of this encounter Plan of Treatment Not on file documented as of this encounter Procedures Procedure Name Priority Date/Time Associated Diagnosis Comments SCANNED LABS Routine 11/20/2023 2:39 PM EDT documented in this encounter Results * SCANNED LABS (11/20/2023 2:39 PM EDT) us Noms Provider Unallocated LAB CHG PERFORMABLE S Final Result documented in this encounter Visit Diagnoses Not on filedocumented in this encounter Care Teams Hedis Nurse Relationship Specialty Start Date End Date Bang Aviles MD [address] [facility] [address] [place] [address] PCP - General Internal Medicine 08/20/22 documented as of this encounter
--- OUTSIDE RECORDS SUMMARY | 2025-01-12 15:30 | XMS_ITS | Encounter Summary ---
Author Organization [facility] Address [address] [place] [address] Care Team Providers Care Digital Content Specialist Name Role Phone Karthik Allen MD Primary Care Provider Pcp, No Primary Care Provider Yue Aviles II, MD, Bang Lim Primary Care Provider [phone] Source Comments In the event this information is protected by the Federal Confidentiality of Alcohol and Drug AbusePatient Records regulations: The Federal rules restrict any use of the information to criminally investigate or prosecute any alcohol or drug abuse patient.[facility] Encounter Details Date Type Department Care Team (Late st Contact Info) Description 02/22/2016 Patient Msg Medical Records [address] [place] [address] Provider, [facility] RE: Patient Registration Completed Social History Tobacco Use Types Packs/Day Years Used Date Smoking Tobacco: Former Cigarettes Smokeless Tobacco: Never Comments:quit in 2002 Alcohol Use Standard Drinks/Week Comments No 0 (1 standard drink = 0.6 oz pur e alcohol) Comments No Sex and Gender Information Value Date Recorded Sex Assigned at Not on file Legal Sex Female 7:33 AM EST Gender Identity Not on file Sexual Orientation Not on file documented as of this encounter Plan of Treatment Not on file documented as of this encounter Visit Diagnoses Not on filedocumented in this encounter Care Teams Digital Content Specialist Relationship Specialty Start Date End Date Karthik Allen MD [address] [place] [address] PCP - General 05/25/08 10/26/21 Pcp, No PCP - General 10/27/21 05/14/22 Bang Aviles II, MD [address] [address] PCP - General Internal Medicine 02/05/24 documented as of this encounter
--- OUTSIDE RECORDS SUMMARY | 2025-01-12 15:30 | XMS_ITS | Encounter Summary ---
Author Organization [facility] Address [address] [facility] [place] [address] Care Team Providers Care Wool Mixer Name Role Phone Bang Aviles MD Primary Care Provider [phone] Encounter Details Date Type Department Care Team (Late st Contact Info) Description 09/17/2023 Abstract [facility] [address] [facility] [address] [place] [phone] Bang Aviles MD [address] [facility] [address] [place] [address] Social History Tobacco Use Types Packs/Day Years Used Date Smoking Tobacco: Never Assessed Comments Unknown Sex and Gender Information Value Date Recorded Sex Assigned at Not on file Legal Sex Female 7:20 PM EDT Gender Identity Not on file Sexual Orientation Not on file documented as of this encounter Plan of Treatment Not on file documented as of this encounter Visit Diagnoses Not on filedocumented in this encounter Care Teams Wool Mixer Relationship Specialty Start Date End Date Bang Aviles MD [address] [facility] [address] [place] [address] PCP - General Internal Medicine 08/20/22 documented as of this encounter
--- OUTSIDE RECORDS SUMMARY | 2025-01-12 15:30 | XMS_ITS | Encounter Summary ---
Author Organization [facility] Address [address] [facility] [place] [address] Care Team Providers Care Supervisor Aircraft Cleaning Name Role Phone Bang Aviles MD Primary Care Provider [phone] Encounter Details Date Type Department Care Team (Late st Contact Info) Description 03/22/2024 Abstract [facility] [address] [facility] [address] [place] [phone] Bang Aviles MD [address] [facility] [address] [place], [place] [phone] Social History Tobacco Use Types Packs/Day Years [...] on filedocumented in this encounter Care Teams Supervisor Aircraft Cleaning Relationship Specialty Start Date End Date Bang Aviles MD [address] [facility] [address] [place], [place] [address] PCP - General Internal Medicine 08/20/22 documented as of this encounter
--- OUTSIDE RECORDS SUMMARY | 2025-01-12 15:30 | XMS_ITS | Encounter Summary ---
Author Organization [facility] Address [address] [facility] [place] [address] Care Team Providers Care Casual Shoe Inspector Name Role Phone Bang Aviles MD Primary Care Provider [phone] Encounter Details Date Type Department Care Team (Late st Contact Info) Description 02/09/2024 Abstract [facility] [address] [facility] [address] [place] [phone] Bang Aviles MD [address] [facility] 110 [place], [place] [id number] Social History Tobacco Use Types Packs/Day Years [...] on filedocumented in this encounter Care Teams Casual Shoe Inspector Relationship Specialty Start Date End Date Bang Aviles MD [address] [facility] [address] [place], [place] [phone] PCP - General Internal Medicine 08/20/22 documented as of this encounter
--- OUTSIDE RECORDS SUMMARY | 2025-01-12 15:30 | XMS_ITS | Clinical Summary ---
Author Organization [facility] Address [address] [place] [address] Care Team Providers Care Cork Tipper Name Role Phone Stefan DONALD MD, Bang Lim Primary Care Provider [phone] Allergies Active Allergy Reactions Criticality Noted Date Comments Citalopram Other: See Comments 12/10/2023 Roaring in Ears Medications HYDROcodone-jean taminophen (NORCO) 5-325 mg per tablet Take 1-2 tablets by mouth every 4 hours as needed. 20 tablet 0 6 Active docusate sodium (COLACE) 100 mg capsule Take one capsule twice daily while taking pain medications to prevent constipation. Hold if loose stool 6 Active CAPMIST DM 60-15-400 mg tab take 1 tablet by mouth every 6 hours as needed for cough 4 Active losartan (COZAAR) 100 mg tablet Take 100 mg by mouth. 5 Active VTAMA 1 % cream 4 Active apixaban (ELIQUIS) 2.5 mg tab(s) Take 2.5 mg by mouth two times a day. Active triamterene-hyd roCHLOROthiazid e (MAXZIDE-25MG) 37.5-25 mg per tablet Take 1 tablet by mouth once daily. Active atenolol (TENORMIN) 25 mg tablet Take 25 mg by mouth once daily. Active hydroCHLOROthia zide 12.5 mg capsule Take 12.5 mg by mouth once daily. Active levothyroxine (SYNTHROID) 175 mcg tablet TAKE 1 TABLET BY MOUTH EVERY DAY 90 tablet 1 5 Active Active Problems Problem Noted Date Diagnosed Date Atypical nevus of ankle 03/25/2016 Melanoma of lower leg 02/15/2016 Other specified disorders of urethra 06/20/2006 HTN (hypertension) Morbidly obese Encounters Date Type Department Care Team Description 10/21/2024 Refill Endocrinology [address] [address] Naina Greco MD Refill Request from Last 3 Months Family History Medical History Relation Comments Diabetes Brother Hypertension Brother Colon Cancer Father Heart Father Emphysema Mother Hypertension Mother Lipids Mother Relation Status Comments Brother Father Mother Social History Tobacco Use Types Packs/Day Years Used Date Smoking Tobacco: Former Cigarettes Smokeless Tobacco: Never Comments:quit in 2002 Alcohol Use Standard Drinks/Week Comments No 0 (1 standard drink = 0.6 oz pur e alcohol) Area Deprivation Index Answer Date Lele rded National Score (1-100), lower number is lower ri sk 76 05/20/2024 State Score (1-10), lower number is lower risk 6 05/20/2024 Data from: https://www.neighborhoodatlas.medicine.[facility].edu/. Last address used for calculation [address] [place] [address] [address] 05/20/2024 Comments No Sex and Gender Information Value Date Recorded Sex Assigned at Not on file Legal Sex Female 7:33 AM EST Gender Identity Not on file Sexual Orientation Not on file Last Filed Vital Signs Vital Sign Reading Time Taken Comments Blood Pressure 123/80 05/20/2024 9:45 AM EST Pulse 60 03/14/2016 9:26 AM EST Temperature 36.7 C (98 F) 03/14/2016 9:26 AM EST Respiratory Rate 18 03/14/2016 9:26 AM EST Oxygen Saturation 93% 03/04/2016 10:53 AM EST Inhaled Oxygen Concentration - - Weight 133.3 kg (293 lb 14 oz) 05/20/2024 8:59 A M EST Height 162.6 cm (5' 4 ) 05/20/2024 8:59 AM EST Body Mass Index 50.44 05/20/2024 8:59 AM EST Plan of Treatment Health Maintenance Due Date Last Done Comments Annual PCP Team Chronic Disease Visit 1984 Anxiety Screening 1984 Depression Screening 1984 HIV Screening 1984 Hepatitis C Screening 1984 DTaP,Tdap,Td Vaccine (1 - Tdap) 1985 Hepatitis B Vaccine (1 of 3 - 19+ 3-dose series) 1985 Cervical Cancer Screening 10/29/1987 CT Colonography 10/29/2011 Cologuard (FIT-DNA) 10/29/2011 Colonoscopy 10/29/2011 Colorectal Cancer Screening 10/29/2011 Diabetes Screening 10/29/2011 03/29/2005 Fecal Occult Blood 10/29/2011 Lipid Screening 10/29/2011 Sigmoidoscopy 10/29/2011 Pneumococcal Vaccine: 50+ (1 of 1 - PCV) 2016 Shingrix Vaccine (1 of 2) 2016 Mammogram Screening 07/20/2021 07/20/2020, Influenza Vaccine (#1) 2024 Procedures Procedure Name Priority Date/Time Associated Diagnosis Comments COMPREHENSIVE METABOLIC PANEL LISBET 03/29/2005 8:29 AM EST Urethral Diverticulum from Last 3 Months or Most Recently Relevant to Health Maintenance Results * (ABNORMAL) COMP METABOLIC PANEL (03/29/2005 8:29 AM EST) Protein, Total 7.4 6.0 - 8.4 g/dL [facility] Albumin 4.2 3.5 - 5.0 g/dL [facility] Calcium 9.4 8.5 - 10.5 mg/dL [facility] Bilirubin, Total 0.6 0.0 - 1.5 mg/dL [facility] Alkaline Phosphatase 76 40 - 150 U/L [facility] AST 23 7 - 40 U/L [facility] Glucose 103(A) 65 - 100 mg/dL [facility] BUN 12 8 - 25 mg/dL [facility] Creatinine 0.8 0.7 - 1.4 mg/dL [facility] Sodium 142 132 - 148 mmol/L [facility] Potassium 4.4 3.5 - 5.0 mmol/L [facility] Chloride 105 98 - 110 mmol/L [facility] CO2 26 23 - 32 mmol/L [facility] Anion Gap 11 0 - 15 mmol/L [facility] ALT 18 0 - 45 U/L [facility] Blood specimen (specimen) BLOOD SPECIMEN / Unknown 03/29/2005 8:29 AM EST us Asa Lindsey MD LABORATORY Final Resul t [facility] [address] [place] [address] from Last 3 Months or Most Recently Relevant to Health Maintenance [facility] [place] [id number] Care Teams Cork Tipper Relationship Specialty Start Date End Date Bang Aviles II, MD 112 [facility] 110 [place] [address] PCP - General Internal Medicine 02/05/24
--- OUTSIDE RECORDS SUMMARY | 2025-01-12 15:30 | XMS_ITS | Encounter Summary ---
Author Organization [facility] Address [address] [place] [address] Care Team Providers Care Edge Burnisher Uppers Name Role Phone Karthik Allen MD Primary Care Provider Pcp, No Primary Care Provider Yue Aviles II, MD, Bang Lim Primary Care Provider [phone] Source Comments In the event this information is protected by the Federal Confidentiality of Alcohol and Drug AbusePatient Records regulations: The Federal rules restrict any use of the information to criminally investigate or prosecute any alcohol or drug abuse patient.[facility] Encounter Details Date Type Department Care Team (Late st Contact Info) Description 02/22/2016 Patient Msg Medical Records [address] [place] [address] Provider, Ccf RE: Patient Registration Completed Social [...] on filedocumented in this encounter Care Teams Edge Burnisher Uppers Relationship Specialty Start Date End Date Karthik Allen MD [address] [place] [address] PCP - General 05/25/08 10/26/21 Pcp, No PCP - General 10/27/21 05/14/22 Bang Aviles II, MD [address] [address] PCP - General Internal Medicine 02/05/24 documented as of this encounter
--- OUTSIDE RECORDS SUMMARY | 2025-01-12 15:30 | XMS_ITS | Encounter Summary ---
Author Organization [facility] Address [address] [place] [facility] [place] [address] Care Team Providers Care Travel Counselor Name Role Phone Bang Aviles MD Primary Care Provider [phone] Encounter Details Date Type Department Care Team (Late st Contact Info) Description 03/22/2024 Abstract [facility] [address] [facility] 110 [place] [address] Bang Aviles MD [address] [facility] [address] [place], [place] [id number] Social History Tobacco Use Types Packs/Day Years [...] on filedocumented in this encounter Care Teams Travel Counselor Relationship Specialty Start Date End Date Bang Aviles MD [address] [facility] [address] [place], [place] [id number] PCP - General Internal Medicine 08/20/22 documented as of this encounter
--- OUTSIDE RECORDS SUMMARY | 2025-01-12 15:30 | XMS_ITS | Encounter Summary ---
Author Organization [facility] Address [address] [place] [address] Care Team Providers Care Cryolite Recovery Operator Name Role Phone Karthik Allen MD Primary Care Provider Pcp, No Primary Care Provider Yue Aviles II, MD, Bang Lim Primary Care Provider [phone] Source Comments In the event this information is protected by the Federal Confidentiality of Alcohol and Drug AbusePatient Records regulations: The Federal rules restrict any use of the information to criminally investigate or prosecute any alcohol or drug abuse patient.[facility] Encounter Details Date Type Department Care Team (Late st Contact Info) Description 03/15/2016 Get Medical Advice Hematology/Oncology [address] [place] [address] Charlie Jessica MD [address] [facility] [address] [place] [address] RE: Test Result Question Social History Tobacco Use Types Packs/Day Years [...] on filedocumented in this encounter Care Teams Cryolite Recovery Operator Relationship Specialty Start Date End Date Karthik Allen MD [address] [place] [address] PCP - General 05/25/08 10/26/21 Pcp, No PCP - General 10/27/21 05/14/22 Bang Aviles II, MD [address] [address] PCP - General Internal Medicine 02/05/24 documented as of this encounter
--- OUTSIDE RECORDS SUMMARY | 2025-01-12 15:30 | XMS_ITS | Encounter Summary ---
Author Organization [facility] Address [address] [place] [address] Care Team Providers Care Furniture Associate Name Role Phone Bang Aviles MD Primary Care Provider [phone] Encounter Details Date Type Department Care Team (Late st Contact Info) Description 03/22/2024 Abstract [facility] [address] [facility] 110 [place] [address] Bang Aviles MD [address] [facility] [address] [place], [place] [id number] Social History Tobacco Use Types Packs/Day Years [...] on filedocumented in this encounter Care Teams Furniture Associate Relationship Specialty Start Date End Date Bang Aviles MD [address] [facility] 110 [place], [place] [id number] PCP - General Internal Medicine 08/20/22 documented as of this encounter
--- OUTSIDE RECORDS SUMMARY | 2025-01-12 15:30 | XMS_ITS | Encounter Summary ---
Author Organization [facility] Address [address] [place] [address] Care Team Providers Care Automotive Manufacturer Name Role Phone Stefan DONALD MD, Bang Lim Primary Care Provider [phone] Source Comments In the event this information is protected by the Federal Confidentiality of Alcohol and Drug AbusePatient Records regulations: The Federal rules restrict any use of the information to criminally investigate or prosecute any alcohol or drug abuse patient.[facility] Encounter Details Date Type Department Care Team (Late st Contact Info) Description 09/16/2024 Patient [facility] [place] [address] Lindsay May RPh At your next appointment, choose [facility]. Social History Tobacco Use Types Packs/Day Years [...] is lower risk 6 05/20/2024 Data from: https://www.neighborhoodatlas.medicine.[facility].edu/. Last address used for calculation [address] [place] [address] 05/20/2024 Comments No Sex and Gender Information Value Date Recorded Sex Assigned at Not on file Legal Sex Female 7:33 AM EST Gender Identity Not on file Sexual Orientation Not on file documented as of this encounter Plan of Treatment Not on file documented as of this encounter Visit Diagnoses Not on filedocumented in this encounter Care Teams Automotive Manufacturer Relationship Specialty Start Date End Date Bang Aviles II, MD [address] [place] [address] PCP - General Internal Medicine 02/05/24 documented as of this encounter
--- OUTSIDE RECORDS SUMMARY | 2025-01-12 15:30 | XMS_ITS | Clinical Summary ---
Author Organization [facility] Address [address] [place] [address] Care Team Providers Care Carrier Driver Name Role Phone Alba Isaac MD Primary Care Provider Allergies No known active allergies Medications levothyroxine (Synthroid, Levoxyl) 150 mcg tablet Take 175 mcg by mouth in the morning. 2023 Active losartan (Cozaar) 100 mg tablet Take 100 mg by mouth in the morning. 04/26/2024 Active triamterene-hydro CHLOROthiazide (Maxzide-25) 37.5-25 mg tablet Take 1 tablet by mouth in the morning. 04/20/2024 Active apixaban (Eliquis) 5 mg tabletIndications :Paroxysmal atrial fibrillation (CMS/HCC) Take 1 tablet (5 mg) by mouth two times daily. 60 tablet 11 04/27/2024 Active pseudoephedrine-D M-guaifenesin 60-15-400 mg tablet Take 400 mg by mouth in the morning. 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 Hot flushes, perimenopausal 10/06/2023 Insulin resistance 10/06/2023 Internal hemorrhoids 10/06/2023 Irregular menstrual cycle 10/06/2023 Malignant melanoma in situ 10/06/2023 Mixed connective tissue disease 10/06/2023 Morbid obesity 10/06/2023 JAIDEN (obstructive sleep apnea) 10/06/2023 Osteoarthritis 10/06/2023 Atypical nevus of ankle 03/25/2016 Melanoma of lower leg 02/15/2016 Other specified disorders of urethra 06/20/2006 Family History Medical History Relation Name Comments Atrial fibrillation Father Valvular heart disease Father COPD Mother Relation Name Status Comments Brother Alive Father Alive Mother Social History Tobacco Use Types Packs/Day Years Used Date Smoking Tobacco: Former Cigarettes Smokeless Tobacco: Never Tobacco Cessation:Counseling Given: Not Answered Alcohol Use Standard Drinks/Week Comments Not Currently 0 (1 standard drink = 0.6 oz pur e alcohol) Comments Unknown Sex and Gender Information Value Date Recorded Sex Assigned at Not on file Legal Sex Female 12:16 AM EDT Gender Identity Not on file Sexual Orientation Not on file Last Filed Vital Signs Vital Sign Reading Time Taken Comments Blood Pressure 142/75 07/20/2024 3:44 PM EDT Pulse 59 07/20/2024 3:44 PM EDT Temperature - - Respiratory Rate - - Oxygen Saturation 99% 07/20/2024 3:44 PM EDT Inhaled Oxygen Concentration - - Weight 135 kg (297 lb) 07/20/2024 3:44 PM EDT Height 162.6 cm (5' 4 ) 07/20/2024 3:44 PM EDT Body Mass Index 50.98 07/20/2024 3:44 PM EDT Plan of Treatment Upcoming Encounters Date Type Department Care Team (Late st Contact Info) Description 02/15/2025 3:45 PM EST Office Visit [facility] [address] [place] [address] Ed Appiah MD [address] [place] [address] Health Maintenance Due Date Last Done Comments CT Colonography 1966 FIT-DNA 1966 FIT 1966 FOBT 1966 Sigmoidoscopy 1966 Depression Screening 1978 Hepatitis B Vaccines (1 of 3 - 19+ 3-dose series) 1985 Pap Smear 10/29/1987 Adult Tetanus 1988 Cervical Cancer Screening 1996 HPV/Cotest 1996 Zoster Vaccines (1 of 2) 2016 Mammogram 07/20/2022 07/20/2020 COVID-19 Vaccine (1 - 2023-2 5 season) 2024 Influenza Vaccine (#1) 2024 Colonoscopy 10/25/2030 10/25/2020 Colorectal Cancer Screening 10/25/2030 HIB Vaccines Aged Out No longer eligi ble based on patient's age to complete this topic HPV Vaccines Aged Out No longer eligi ble based on patient's age to complete this topic IPV Vaccines Aged Out No longer eligi ble based on patient's age to complete this topic Meningococcal B Vaccine Aged Out No l onger eligible based on patient's age to complete this topic Meningococcal Vaccine Aged Out No sergio barbara eligible based on patient's age to complete this topic Pneumococcal Vaccine: Pediat rics (0 to 5 Years) and At-Risk Patients (6 to 64 Years) Aged Out No longer eligi ble based on patient's age to complete this topic Rotavirus Vaccines Aged Out No longer eligible based on patient's age to complete this topic Insurance [employer] Care Teams Carrier Driver Relationship Specialty Start Date End Date Alba Isaac MD 112 [facility] 110 [place] [address] PCP - General Physician Facility Supervisor 04/26/24
--- OUTSIDE RECORDS SUMMARY | 2025-01-12 15:30 | XMS_ITS | Encounter Summary ---
Author Organization [facility] Address [address] [place], [place] [address] Care Team Providers Care Orthotics Technician Name Role Phone Stefan DONALD MD, Bang Lim Primary Care Provider [phone] Source Comments In the event this information is protected by the Federal Confidentiality of Alcohol and Drug AbusePatient Records regulations: The Federal rules restrict any use of the information to criminally investigate or prosecute any alcohol or drug abuse patient.[facility] Encounter Details Date Type Department Care Team (Late st Contact Info) Description 06/30/2024 Patient Msg [facility] [address] [place] [address] Provider, Ccf Financial Clearance Status Social History Tobacco Use Types Packs/Day Years [...] is lower risk 6 05/20/2024 Data from: https://www.neighborhoodatlas.medicine.[facility].edu/. Last address used for calculation [address] [address] 05/20/2024 Comments No Sex and Gender Information Value Date Recorded Sex Assigned at Not on file Legal Sex Female 7:33 AM EST Gender Identity Not on file Sexual Orientation Not on file documented as of this encounter Plan of Treatment Not on file documented as of this encounter Visit Diagnoses Not on filedocumented in this encounter Care Teams Orthotics Technician Relationship Specialty Start Date End Date Bang Aviles II, MD 112 [facility] 110 [place] [address] PCP - General Internal Medicine 02/05/24 documented as of this encounter
--- OUTSIDE RECORDS SUMMARY | 2025-01-12 15:30 | XMS_ITS | Encounter Summary ---
Author Organization [facility] Address [address] [place] [facility] [place] [address] Care Team Providers Care Cigarette Stamper Name Role Phone Bang Aviles MD Primary Care Provider [phone] Encounter Details Date Type Department Care Team (Late st Contact Info) Description 03/19/2024 Abstract [facility] [address] [facility] 110 [place] [address] Bang Aviles MD [address] [facility] 110 [place], [place] [address] Social History Tobacco Use Types Packs/Day Years [...] on filedocumented in this encounter Care Teams Cigarette Stamper Relationship Specialty Start Date End Date Bang Aviles MD [address] [facility] [address] [place], [place] [address] PCP - General Internal Medicine 08/20/22 documented as of this encounter
--- OUTSIDE RECORDS SUMMARY | 2025-01-12 15:30 | XMS_ITS | Encounter Summary ---
Author Organization [facility] Address [address] [facility] [place] [address] Care Team Providers Care Soft Metals Hand Engraver Name Role Phone Bang Aviles MD Primary Care Provider [phone] Encounter Details Date Type Department Care Team (Late st Contact Info) Description 10/21/2023 Abstract [facility] [address] [facility] 110 [place] [address] Bang Aviles MD [address] [facility] [address] [place], [place] [id number] Social History Tobacco Use Types Packs/Day Years [...] on filedocumented in this encounter Care Teams Soft Metals Hand Engraver Relationship Specialty Start Date End Date Bang Aviles MD [address] [facility] [facility] [address] [place] [address] PCP - General Internal Medicine 08/20/22 documented as of this encounter
--- OUTSIDE RECORDS SUMMARY | 2025-01-12 15:30 | XMS_ITS | Encounter Summary ---
Author Organization [facility] Address [address] [facility] [place] [address] Care Team Providers Care Ophthalmic Surgical Assistant Name Role Phone Bang Aviles MD Primary Care Provider [phone] Encounter Details Date Type Department Care Team (Late st Contact Info) Description 03/19/2024 Abstract [facility] [address] [facility] 110 [place] [address] Bang Aviles MD [address] [facility] 110 [place], [place] [address] Social History Tobacco Use Types Packs/Day Years [...] on filedocumented in this encounter Care Teams Ophthalmic Surgical Assistant Relationship Specialty Start Date End Date Bang Aviles MD [address] [facility] 110 [place], [place] [address] PCP - General Internal Medicine 08/20/22 documented as of this encounter
--- OUTSIDE RECORDS SUMMARY | 2025-01-12 15:30 | XMS_ITS | Encounter Summary ---
Author Organization [facility] Address [address] [place] [address] Care Team Providers Care Customer Accounts Advisor Name Role Phone Karthik Allen MD Primary Care Provider Pcp, No Primary Care Provider Yue Aviles II, MD, Bang Lim Primary Care Provider [phone] Source Comments In the event this information is protected by the Federal Confidentiality of Alcohol and Drug AbusePatient Records regulations: The Federal rules restrict any use of the information to criminally investigate or prosecute any alcohol or drug abuse patient.[facility] Encounter Details Date Type Department Care Team (Late st Contact Info) Description 02/17/2016 Get Medical Advice Hematology/Oncology [address] [place] [address] Charlie Jessica MD [address] [facility] [address] [place] [address] RE: Visit Follow Up Question Social History Tobacco Use Types Packs/Day [...] filedocumented in this encounter Care Teams Customer Accounts Advisor Relationship Specialty Start Date End Date Karthik Allen MD [address] [place] [address] PCP - General 05/25/08 10/26/21 Pcp, No PCP - General 10/27/21 05/14/22 Bang Aviles II, MD [address] [address] PCP - General Internal Medicine 02/05/24 documented as of this encounter
--- OUTSIDE RECORDS SUMMARY | 2025-01-12 15:30 | XMS_ITS | Encounter Summary ---
Author Organization [facility] Address [address] [facility] [place] [address] Care Team Providers Care Criminal Attorney Name Role Phone Bang Aviles MD Primary Care Provider [phone] Encounter Details Date Type Department Care Team (Late st Contact Info) Description 10/21/2023 Abstract [facility] [address] [facility] 110 [place] [address] Bang Aviles MD 112 [facility] [address] [place], [place] [address] Social History Tobacco Use Types Packs/Day Years [...] on filedocumented in this encounter Care Teams Criminal Attorney Relationship Specialty Start Date End Date Bang Aviles MD 112 [facility] [address] [place] [address] PCP - General Internal Medicine 08/20/22 documented as of this encounter
--- OUTSIDE RECORDS SUMMARY | 2025-01-12 15:30 | XMS_ITS | Encounter Summary ---
Author Organization [facility] Address [address] [place] [facility] [place] [address] Care Team Providers Care Vp Corporate Development Name Role Phone Bang Aviles MD Primary Care Provider [phone] Encounter Details Date Type Department Care Team (Late st Contact Info) Description 03/22/2024 Abstract [facility] [address] [facility] 110 [place] [address] Bang Aviles MD [address] [facility] 110 [place], [place] [phone] Social History Tobacco Use Types Packs/Day Years [...] on filedocumented in this encounter Care Teams Vp Corporate Development Relationship Specialty Start Date End Date Bang Aviles MD [address] [facility] 110 [place], [place] [address] PCP - General Internal Medicine 08/20/22 documented as of this encounter
--- OUTSIDE RECORDS SUMMARY | 2025-01-12 15:30 | XMS_ITS | Encounter Summary ---
Author Organization [facility] Address [address] [place] [address] [place] [address] Care Team Providers Care Hollow Tile Partition Erector Name Role Phone Bang Aviles MD Primary Care Provider [phone] Encounter Details Date Type Department Care Team (Late st Contact Info) Description 03/23/2024 Abstract [facility] [address] [facility] [address] [place] [id number] Bang Aviles MD [address] [facility] [address] [place], [place] [id number] Social History Tobacco Use Types Packs/Day Years [...] on filedocumented in this encounter Care Teams Hollow Tile Partition Erector Relationship Specialty Start Date End Date Bang Aviles MD [address] [facility] [address] [place], [place] [id number] PCP - General Internal Medicine 08/20/22 documented as of this encounter
== END 2025-01-12 15:28 | disposition home or self-care (01) ==
LOC: SLEEP 15:27
PROVIDERS: PCP Internal Medicine; Visit Provider Psychiatry & Neurology Neurology
DX: G47.33 Obstructive sleep apnea (adult) (pediatric) (principal)